=== PATIENT | female | born 1950 | race Caucasian/White ===

== ENCOUNTER 2023-06-09 13:28 | Emergency (ER) | payer MEDICARE, BC, SELFPAY ==
[2023-06-09 13:54] VITALS: BP 128/87; PULSE 73; RESP 16; TEMP 36.2; O2SAT 98; BMI 31.1
--- NOTE | 2023-06-09 14:00 | ED_ITS ---
HPI - Extremity Injury (Lower) General Time Seen by Provider: 14:00 Date Seen: 06/09/23 Chief Complaint: Extremity Pain/Injury, Lower Stated Complaint: R ankle injury-fell down steps Time Seen by Provider: 06/09/23 13:59 Source: patient and RN notes reviewed Mode of arrival: ambulatory Limitations: no limitations History of Present Illness HPI Narrative: This 73-year-old female was going down steps when she tripped and lost her balance. She rolled her right ankle, has pain and swelling on the outside of her right ankle. She states she has been told to not take NSAIDs. Nursing staff provided ice on arrival, denies injuring anything else, did not hit her head, no loss of consciousness. She did not have anything like chest pain dizziness or anything precipitating the fall, simply just tripped and lost balance, went down about 3 or 4 steps. Her ankle is the only thing that hurts, no numbness or tingling. Related Data Home Medications Medication Instructions Recorded Confirmed atorvastatin 20 mg tablet 20 mg PO DAILY 06/09/23 06/09/23 fluticasone propionate 50 spray intranasal 06/09/23 mcg/actuation nasal spray,suspension hydrochlorothiazide 25 mg tablet 25 mg PO DAILY 06/09/23 06/09/23 lisinopril 30 mg tablet 30 mg PO DAILY 06/09/23 06/09/23 metoprolol succinate 200 mg 200 mg PO DAILY 06/09/23 06/09/23 tablet,extended release 24 hr triamcinolone acetonide 0.025 % applic topical 06/09/23 topical cream Allergies Allergy/AdvReac Type Severity Reaction Status Date / Time No Known Drug Allergies Allergy Verified 06/09/23 13:47 Review of Systems Narrative: As per HPI. Exam Const: Vital Signs, click to edit/add: Vital Signs - 24 hr 06/09/23 13:54 Temperature 97.1 F L Pulse Rate [Right Pulse Oximeter] 73 Respiratory Rate 16 Blood Pressure [Ri ght Upper Arm] 128/87 Pulse Oximetry 98 Oxygen Delivery Me thod Room Air Patient is alert, interactive, no apparent distress. She has visible swelling over her right lateral ankle over the lateral malleolus. She is tender over the distal lateral malleolus and inferiorly to it in the soft tissue. The 5th metatarsal in the midfoot is nontender. There is a little pain anterior to the lateral malleolus along the joint line mortise, no effusion of the ankle joint noted. Good peripheral pulses, toes have normal sensation, good cap refill, she wiggles her toes just fine. Range of motion about the ankle limited due to pa in. Documenting provider has reviewed patient's vital signs: yes Course Course ED Course: We will obtain x-rays of her right ankle to rule out underlying fracture. She will ice in the meantime. Reevaluation(s) Time of Reevaluation #1: 15:23 Reevaluation #1: Have shown patient a picture of her ankle fracture, reviewed my discussion with Orthopedics. Will see if she can comfortably walk in the cam walker, otherwise they do have crutches at home. Advised that crutches absolutely cannot rest in her axilla, advised that crutches be fitted. We discussed ice, elevation. Will get her the phone number to call the orthopedic office to get scheduled for follow-up next week and to assess if this may need surgery. Consultations Consultation #1: Have reviewed with Angela the PA from Orthopedics. Boot for mobilization, follow up in clinic for further evaluation to see if surgical versus nonsurgical. Time: 15:23 Vital Signs Vital signs: Initial Vital Signs Temperature 97.1 F L 06/09/23 13:54 Temperature Source Temporal Artery Scan 06/09/23 13:54 Pulse Rate 73 06/09/23 13:54 Pulse Rhythm Regular 06/09/23 13:54 Respiratory Rate 16 06/09/23 13:54 Blood Pressure 128/87 06/09/23 13:54 Blood Pressure Mean 100 06/09/23 13:54 Blood Pressure Position Sitting 06/09/23 13:54 Pulse Oximetry 98 06/09/23 13:54 Oxygen Delivery Method Room Air 06/09/23 13:54 Vital Signs Temperature 97.1 F L 06/09/23 13:54 Pulse Rate 73 06/09/23 13:54 Respiratory Rate 16 06/09/23 13:54 Blood Pressure 128/87 06/09/23 13:54 Pulse Oximetry 98 06/09/23 13:54 Oxygen Delivery Method Room Air 06/09/23 13:54 Temperature 97.1 F L 06/09/23 13:54 Pulse Rate 73 06/09/23 13:54 Respiratory Rate 16 11/17/23 13:54 Blood Pressure 128/87 06/09/23 13:54 Pulse Oximetry 98 06/09/23 13:54 Oxygen Delivery Method Room Air 06/09/23 13:54 MDM - Extremity Injury (Lower) Differential Diagnosis Differential diagnosis: Likely ankle sprain and strain and ankle fracture Imaging Data XR right ankle: Attestation: I have reviewed the pertinent imaging results. My impression: Distal fibula fracture, question if there might be some disruption of the ankle mortise. Radiologist's impression: Patient: MARQUEZ ERIC Facility:?[facility] Patient ID:?[id number] Site Patient ID:?[id number]. Site :?[id number] Study:?XRay Extremity Right ANKLE-06/09/2023 2:48:49 PM Ordering Physician:Randall Shea Final Report: Indication: Injury of right ankle. Technique: Right ankle 3 views. Comparison: None. Findings/impression: There is an obliquely oriented fracture of the right fibular diametaphysis which is minimally displaced laterally, but otherwise in near anatomic alignment. There is moderate associated soft tissue swelling about the fracture site. Prominent Achilles and plantar aspect calcaneal enthesophytes. No suspicious osseous lesions. Dictated by Eduardo Barajas MD @ 06/09/2023 2:57:02 PM (Electronic Signature) Critical Care Time Critical Care Time Critical Care Time: No Discharge Plan Discharge Clinical Impression: Ankle fracture Patient Disposition: Home, Self-Care Condition: Stable Instructions: Ankle Fracture (ED) Additional Instructions: Need to use the cam walker for immobilization. Ice, elevate as much as able to over the next few days to help decrease pain and swelling. Tylenol 1000 mg 3 times a day as needed for pain management. Call the orthopedic office [phone] this afternoon or Monday to get scheduled for a follow-up next week. They will further evaluate you, do further x-rays to see if this may need surgical intervention. If you are having significant pain with walking in the cam walker, need to use crutches and be nonweightbearing on this ankle as well as leave the cam walker on. Activity Level: Weight Bearing as Tolerated Activity Detail: with CAM walker on Prescriptions: No Action atorvastatin 20 mg tablet 20 mg PO DAILY metoprolol succinate 200 mg tablet extended release 24 hr 200 mg PO DAILY triamcinolone acetonide 0.025 % cream topical lisinopril 30 mg tablet 30 mg PO DAILY hydrochlorothiazide 25 mg tablet 25 mg PO DAILY fluticasone propionate 50 mcg/actuation spray,suspension INTRANASAL Follow Up/Referrals: Saad Noriega MD [Primary Care Provider] - Stand Alone Forms: Osurv Info Instructions
--- NOTE | 2023-06-09 14:07 | CRLHL7_ITS ---
For Patients: As a result of the Century Cures Act, medical imaging exams and procedure reports are released immediately into your electronic medical record. You may view this report before your referring provider. If you have questions, please contact your health care provider. Indication: Injury of right ankle. Technique: Right ankle 3 views. Comparison: None. Findings/impression: There is an obliquely oriented fracture of the right fibular diametaphysis which is minimally displaced laterally, but otherwise in near anatomic alignment. There is moderate associated soft tissue swelling about the fracture site. Prominent Achilles and plantar aspect calcaneal enthesophytes. No suspicious osseous lesions. Dictated by Eduardo Barajas MD @ 06/09/2023 2:57:02 PM (Electronically Signed)
== END 2023-06-09 15:40 | disposition home or self-care (01) ==
PROVIDERS: Emergency Provider Family Medicine; PCP Family Medicine
DX: S82.831A Other fracture of upper and lower end of right fibula, initial encounter for closed fracture (principal); W10.9XXA Fall (on) (from) unspecified stairs and steps, initial encounter
CPT/HCPCS: 73610; 99283

== ENCOUNTER 2023-09-18 08:15 | Outpatient (RCR) | payer MEDICARE, BC, SELFPAY ==
--- NOTE | 2023-07-31 11:08 | PT.OPEX ---
PT [place] Outpatient Eval PT [facility] Outpatient Eval Start: 07/31/23 10:29 Freq: Status: Active Protocol: Document 07/31/23 10:29 MAN (Rec: 07/31/23 11:03 MAN [id number]) E-signed By Aura Trivedi DPT Physical Therapy Outpatient Evaluation Insurance Information Recert Due Date 10/29/23 Insurance Name Medicare B Medical Diagnosis displaced fracture lateral malleolus R fibula Treating Diagnosis R ankle fx with R ankle pain, R ankle/foot swelling, impaired R ankle ROM, impaired R ankle/LE mobility/strength, currently in CAM walking boot WBAT using one crutch, limited tolerance for extended standing/walking and stairs Subjective Subjective Patient reports falling while going down the stairs at her home Jun 09. States she was able to get back up but knew she had injured her ankle so was taken to the ED. Xray showed R ankle fx. She followed up with ortho and has been in a boot since the injury. Initially she was NWB , getting around with crutches . She had a follow up with Jul 11 and was able to progress to WBAT in the boot. She reports still using one or two crutches for walking but is taking a few steps at home without the crutches. She continues to wear her boot with WB, walking activities. She is taking the boot off for some ROM exercises or at rest during the day. Now taking the boot off at night. Pain range 0-2/10. Reports some soreness in the evening and in the morning. Not needing pain meds or ice lately. Expresses some hesitation on progression of WB and being out of the boot, fearing increased pain or a set back in her healing. Date of Last Physician Visit 07/11/23 Date of Next Physician Visit 08/15/23 Current Work Status Retired Precautions Treatment Precautions/Contraindications Per MD note WBAT in CAM boot, able to transition back to shoes in 3-4 weeks as tolerated from MD visit on . Weight Bearing Status Weight Bear as Tolerated Assessment Assessment/Impression Patient is a 73 year old female s/p fall on the stairs on Jun 09 with R ankle fx, R ankle pain, R ankle/foot swelling, impaired R ankle ROM , impaired R ankle/LE mobility /strength, currently in CAM walking boot WBAT using one crutch, limited tolerance for extended standing/walking and stairs. Pain range 0-2/10. She has not been needing pain meds or ice lately. appt on Jul 11 with progression to WBAT in the boot with MD note stating patient may transition to a shoe over the next 3-4 weeks as tolerated. Patient has continued to use the boot for WB and walking. She also continues to use one or two crutches for ambulation. Reports taking a few steps at home without the crutches but not walking without the crutches yet. Gait is slow, limping with walking boot and one crutch this session. Patient is able to take steps in the room without her crutch , in R walking boot. R ankle ROM: DF 5 degrees, PF 30 degrees. Strength testing deferred at this time but patient did tolerate gentle isometrics and gentle isotonics this session without pain. Able to initiate R ankle ROM exercises, standing WB exercises in the boot using countertop support as needed, and gentle ankle WB/strength/ stability exercise with bridging this session. All tolerated well. Patient would benefit from skilled PT for pain/swelling management, improved R ankle ROM, improved R ankle/LE mobility/strength, progression of WB in walking boot, progression out of walking boot, improved gait, balance/proprioception training, and establishment of HEP. Plan of Care Rehabilitation Potential Good Physical Therapy Goals 1. Decrease/maintain R lower leg/ankle pain to less than/ equal to 3/10 with daily activities and with the progression of PT activities over the next 4-6 weeks. 2. Decrease R ankle pain/ soreness so that patient is able to sleep through the night on a regular basis within 3-4 weeks. 3. Improve R ankle ROM over the next 6-8 weeks for return to normal gait mechanics, reciprocal stair negotiation, and PLF with daily/household activities. 4. Improve R ankle/LE strength over the next 8-12 weeks for progression of WB, progression out of walking boot, return to normal gait, and return to extended standing/walking activities without flare up of pain per PLF. 5. Improve R ankle/LE balance /proprioception over the next 8-12 weeks for return to PLF with daily/household activities without limitation and for decreased risk of falls. 6. Patient will be I with HEP within 12 weeks for progression toward above goals, ongoing self management of pain/swelling, ongoing self improvements in ROM/strength/ balance/proprioception/gait, and for return to PLF with daily/household activities without limitation or flare up of pain. Coordination/Communication With Referral Source Treatment Plan/Direct Interventions Gait Training,Manual Therapy, Neuromuscular Re-ed, Therapeutic Exercises Frequency/Duration 1x/week Patient Will Be Discharged From Therapy Completion of LTG(s),Skills Plateau,Independent w/HEP, Independently Progressing Evaluation Billing Untimed Code Treatment Minutes 20 Complexity Moderate Certification Information Initial Certification Date 07/31/23 Ending Certification Date 10/29/23 Provider Signature Shows Agreement With POC & Medical Necessity Physician Signature & Date Requested Please Sign/Date Here Physician Comment/Change : Physician NPI Number #
== END 2024-01-16 23:59 | disposition home or self-care (01) ==
PROVIDERS: PCP Family Medicine; Visit Provider Orthopaedic Surgery
DX: S82.61XA Displaced fracture of lateral malleolus of right fibula, initial encounter for closed fracture (principal); M25.571 Pain in right ankle and joints of right foot; M25.471 Effusion, right ankle; R29.898 Other symptoms and signs involving the musculoskeletal system; Z74.09 Other reduced mobility; Z51.89 Encounter for other specified aftercare
CPT/HCPCS: 97110; 97162

== ENCOUNTER 2024-03-01 08:47 | Outpatient (CLI) | payer MEDICARE, BC, SELFPAY ==
--- OUTSIDE RECORDS SUMMARY | 2024-03-01 08:49 | XMS_ITS | Clinical Summary ---
Author Organization [facility] Address [place], [place] [address] Care Team Providers Care Tugger Operator Name Role Phone Saad Noriega MD Primary Care Provider + Allergies Active Allergy Reactions Criticality Noted Date Comments Ciprofloxacin Hallucinations 12/18/2018 Medications Medication Sig Dispensed Refills Start Date End Date Status fluticasone (50 mcg per actuation) nasal solution (FLONASE)Indication s:Rhinitis, unspecified type PLACE 2 SPRAYS INTO EACH NOSTRIL ONCE DAILY 48 mL 5 02/21/2022 Active multivit-min/ferrou s fumarate (MULTI VITAMIN ORAL) Take by mouth. Active antiox #8/om3/dha/epa/lut/ zeax (PRESERVISION AREDS 2, OMEGA-3, ORAL) Take by mouth. Active lisinopriL (PRINIVIL; ZESTRIL) 30 mg tabletIndications:H TN (hypertension) TAKE ONE TABLET BY MOUTH ONCE DAILY 90 Tablet 12/27/2023 Active metoprolol succinate SR (TOPROL XL) 200 mg Sustained-Release tabletIndications:H TN (hypertension) TAKE ONE TABLET BY MOUTH ONCE DAILY 90 Tablet 12/27/2023 Active hydroCHLOROthiazide 25 mg tabletIndications:H TN (hypertension) TAKE ONE TABLET BY MOUTH ONCE DAILY 90 Tablet 12/27/2023 Active atorvastatin (LIPITOR) 20 mg tabletIndications:H yperlipidemia LDL goal <130 TAKE ONE TABLET BY MOUTH EVERY DAY 90 Tablet 12/27/2023 Active polyethylene glycol-electrolyte (GOLYTELY) 236-22.74-6.74 -5.86 gram suspensionIndicatio ns:Adenomatous polyp of colon, unspecified part of colon Drink 2 liters the day before colonoscopy and 2 liters 6 hours before colonoscopy appointment 4000 mL 03/04/2024 Active Active Problems Problem Noted Date Diagnosed Date Rectocele 02/09/2023 Adenomatous colon polyp 07/05/2018 Overview: Colonoscopy 06/2018 polyp, repeat in 5 years Hyperlipidemia LDL goal <130 12/14/2017 HTN (hypertension) 09/08/2015 Encounters Date Type Department Care Team Description 02/22/2024 2:30 PM CDT Ancillary Procedure [facility] [address] [place] [address] 02/22/2024 2:00 PM CDT Ancillary Procedure [facility] [address] [place] [address] 02/22/2024 Ancillary Orders [facility] [address] [place] [address] Saad Noriega MD 02/22/2024 Travel 02/08/2024 1:20 PM CDT Ancillary Procedure [facility] [address] [place] [address] 02/08/2024 Travel 02/08/2024 Telephone [facility] [address] [place] [address] Oracio Lucero MD Pre Procedure (Colonoscopy) 12/26/2023 Refill [facility] [address] [place] [address] Saad Noriega MD Refill Request (Lisinopril, Metoprolol Succinate Sr, Hydrochlorothiazide , Atorvastatin) from Last 3 Months Immunizations Name Administration Dates Next Due Hepatitis A (Adult) 07/06/2016,03/17/2006 Hepatitis A, Unspecified 03/17/2006 Influenza RIV4 (Age 18+ Years) PRESERV FREE 09/2019,04/30/2019 Influenza Virus, Unspecified 05/01/2006 Influenza, High-dose Inactivated 05/22/2018 Influenza, High-dose Quadrivalent Inactivated ,04/15/2021 Influenza, IIV3 (Age >=3 years) 05/01/2006 Influenza, IIV4 07/06/2016 Influenza, Inactivated IIV3 (Age 65+ Years) Preserv Free 06/20/2017 Pneumococcal Poly,23-Valent (Pneumovax) 07/10/20 17 Pneumococcal conj 13-Valent (Prevnar 13) 016 Td (Age >=7 Years) 02/17/2004 Tdap 07/06/2016 Zoster (Shingrix-RZV, recombinant) 02/25/2020, Family History Medical History Relation Name Comments Diabetes Father Heart Disease Father Heart Disease Mother Stroke Mother Cancer-breast No Family History Relation Name Status Comments Father Mother Social History Tobacco Use Types Packs/Day Years Used Date Smoking Tobacco: Never Smokeless Tobacco: Never Tobacco Cessation:Counseling Given: Yes Alcohol Use Standard Drinks/Week Comments Yes 1 (1 standard drink = 0.6 oz pur e alcohol) 1 drink per week PHQ-2 Answer Date Recorded PHQ-2 TOTAL SCORE 0 02/08/2023 Social Connections Answer Date Recorded Frequency of Communication with Friends and Fami ly Not on file 01/30/2023 Financial Resource Strain Answer Date R ecorded Difficulty of Paying Living Expenses 3 01/26/2022 Difficulty of Paying Living Expenses Not on file 01/26/2022 Food Insecurity Answer Date Recorded Worried About Running Out of Food in the Last Ye ar 1 01/26/2022 Transportation Needs Answer Date Record ed Lack of Transportation (Medical) 1 01/26/2022 Housing Stability Answer Date Recorded Unable to Pay for Housing in the Last Year 1 01/26/2022 Sex and Gender Information Value Date Recorded Sex Assigned at Not on file Gender Identity Not on file Sexual Orientation Not on file Obstetrics History Last Filed Vital Signs Vital Sign Reading Time Taken Comments Blood Pressure 119/78 02/09/2023 1:11 PM CDT Pulse 69 02/09/2023 1:11 PM CDT Temperature 36.8 ??C (98.2 ??F) 02/09/2023 1:11 PM CD T Respiratory Rate - - Oxygen Saturation 97% 02/09/2023 1:11 PM CDT Inhaled Oxygen Concentration - - Weight 81.6 kg (179 lb 12.8 oz) 02/09/2023 1:11 PM CDT Height 156.8 cm (5' 1.73) 02/09/2023 1:11 PM CD T Body Mass Index 33.17 02/09/2023 1:11 PM CDT Plan of Treatment Upcoming Encounters Date Type Department Care Team (Late st Contact Info) Description 03/14/2024 11:00 AM CDT Office Visit [facility] [address] [place] [address] Oracio Lucero MD [address] [place] [address] 03/28/2024 7:30 AM CDT Office Visit [facility] [address] [place] [address] Saad Noriega MD [address] [place] [address] Health Maintenance Due Date Last Done Comments Hepatitis C screening for ag e -02/15/1968 COVID-19 vaccine series ( season) 2023 05/30/2022, 12/09/2021, 05/24/2021, Additional history exists Colonoscopy through age 75 07/04/202307/04, 07/04/2018, 07/04/2018 BMI (ht and wt on same day) for age 18+ 02/10/2024 02/09/2023, 01/27/2022, 08/25/2021, Additional history exists Depression screening for age 12+ 02/10/2024 02/09/2023, 01/27/2022, 06/15/2021, Additional history exists Medicare Wellness for age 65+ 02/10/2024, 01/27/2022, 12/14/2017 Influenza for age 65+ 03/24/2024 05/30/2022 , 04/15/2021, 04/25/2020, Additional history exists Mammogram for age 45-75 02/21/2025 02/22/20, 02/08/2024, 02/02/2023, Additional history exists Tetanus booster 07/06/2026 07/06/2016, 02/17/2004 Lipids for age 45-75 02/10/2028 02/09/2023, 01/27/2022, 06/15/2021, Additional history exists Tdap Completed 07/06/2016 Pneumococcal series for age 65+ Completed 7, 07/06/2016 DEXA/DXA scan for age 65+ Completed 02/08/2018 Zoster (shingles) series for age 50+ Completed 02/25/2020, 05/07/2019 Procedures Procedure Name Priority Date/Time Associated Diagnosis Comments US BREAST UNILATERAL RIGHT LIMITED JACOB 02/22/2024 2:31 PM CDT Abnormal mammogram XR MAMMO GISELLE UNI ADDL VIEWS RIGHT JACOB 02/22/2024 2:14 PM CDT Abnormal mammogram XR MAMMO GISELLE BILAT SCREEN Routine 02/08/2024 1:45 PM CDT Visit for screening mammogram LIPID PANEL W REFLEX MEASURED LDL Routine 02/09/2023 2:16 PM CDT Screening cholesterol level COLONOSCOPY SCREENING Routine 07/04/2018 7:31 AM [facility] Screening for colon cancer XR DXA BONE DENSITY 2 SITES AXIAL Routine 02/08/2018 11:12 AM CDT Menopause from Last 3 Months or Most Recently Relevant to Health Maintenance Results * US BREAST UNILATERAL RIGHT LIMITED (02/22/2024 2:31 PM CDT) Anatomical Region Laterality Modality BREASTS, Breast Right Right Ultrasound Narrative 02/23/2024 1:28 PM CDT For Patients: As a result of the Cures Act, medical imaging exams and procedure reports are released immediately into your electronic medical record. ??You may view this report before your referring provider. ?? If you have questions, please contact your health care provider. RIGHT BREAST LIMITED ULTRASOUND, 02/22/2024 PLEASE SEE [id number] FOR COMBINED REPORT WITH RIGHT DIGITAL MAMMOGRAM OF SAME DAY. Saad Noriega MD US * XR MAMMO GISELLE UNI ADDL VIEWS RIGHT (02/22/2024 2:14 PM CDT) Anatomical Region Laterality Modality BREASTS, Breast Right Mammograph y 02/22/2024 3:50 PM CDT Impressions 02/23/2024 1:28 PM CDT Suspicious mass at 2 o'clock 2 cm from the nipple RIGHT breast measuring 11 mm. Probable artifact in RIGHT breast at 3 o'clock 4 cm from the nipple. RECOMMENDATIONS: Ultrasound-guided core needle biopsy of the suspicious mass at 2 o'clock 2 cm from the nipple. Second-look ultrasound at the time of biopsy at 3 o'clock 4 cm from the nipple. Results and recommendations discussed with the patient. BI-RADS Category 4: Suspicious ?? Dictated by: Bruno Schafer MD @02/22/2024 3:50:43 PM CRL:rcd PATIENTS: You will also receive a letter with your examination results in an easy to read format. ??If you have questions about your results, please contact your referring provider. Narrative 02/23/2024 1:28 PM CDT For Patients: As a result of the Cures Act, medical imaging exams and procedure reports are released immediately into your electronic medical record. ??You may view this report before your referring provider. ?? If you have questions, please contact your health care provider. RIGHT DIGITAL DIAGNOSTIC MAMMOGRAM ADDITIONAL VIEWS WITH TOMOSYNTHESIS, 02/22/2024 RIGHT BREAST LIMITED ULTRASOUND, 02/22/2024 CLINICAL HISTORY: RIGHT breast mass/asymmetry. COMPARISON: 02/08/2024. TECHNIQUE: Digital RIGHT mammogram in two projections with tomosynthesis. Real-time ultrasound imaging of RIGHT breast with imaging documentation. BREAST COMPOSITION: There are scattered areas of fibroglandular density. FINDINGS: 3D spot compression CC/MLO RIGHT breast mammogram images submitted. Persistent spiculated density is present within the medial RIGHT breast. No suspicious calcifications. Targeted RIGHT breast ultrasound performed. At 2 o'clock 2 cm from the nipple, there is a heterogeneous solid mass with lobular contour measuring 11 x 7 x 11 mm at mid depth. Additional shadowing focus is present at 3 o'clock 4 cm from the nipple which is likely artifactual measuring 7 x 5 x 4 mm. Saad Noriega MD MAMMO * XR MAMMO GISELLE BILAT SCREEN (02/08/2024 1:45 PM CDT) Anatomical Region Laterality Modality BREASTS, Breast Left, Breast Right Bilateral Mammography 02/08/2024 3:58 PM CDT Impressions 02/08/2024 4:14 PM CDT RIGHT breast asymmetry/mass. RECOMMENDATIONS: Additional mammographic views of the RIGHT breast including 3D spot-compression CC/MLO. RIGHT breast ultrasound may also be required. A member of the breast health care team will contact the patient to schedule the required additional imaging appointment(s). BI-RADS Category 0: Incomplete: Need Additional Imaging Evaluation and/or Prior Mammograms for Comparison Dictated by: Bruno Schafer MD @02/08/2024 3:58:22 PM/randal PATIENTS: You will also receive a letter with your examination results in an easy to read format. ??If you have questions about your results, please contact your referring provider. Narrative 02/08/2024 4:14 PM CDT For Patients: As a result of the Cures Act, medical imaging exams and procedure reports are released immediately into your electronic medical record. ??You may view this report before your referring provider. ?? If you have questions, please contact your health care provider. BILATERAL DIGITAL SCREENING MAMMOGRAM WITH COMPUTER-AIDED DETECTION AND TOMOSYNTHESIS 02/08/2024 CLINICAL HISTORY: Routine screening exam. COMPARISON: 02/02/2023, 09/24/2021, 02/08/2018. TECHNIQUE: Digital mammogram in CC and MLO projections including computer-aided detection (CAD). Tomosynthesis was used in this interpretation. BREAST COMPOSITION: There are scattered areas of fibroglandular density. FINDINGS: RIGHT Breast: Focal asymmetric density in the lower inner quadrant 4 cm from the nipple. LEFT Breast: No suspicious findings. Saad Noriega MD MAMMO * LIPID PANEL W REFLEX MEASURED LDL (02/09/2023 2:16 PM CDT) CHOLESTEROL,TOTAL 188 100 - 199 mg/dL 02/10/2023 2:04 AM CDT [facility] Comment: Cholesterol, Total Reference Ranges Desirable <200 mg/dL Borderline 200-239 mg/dL High >=240 mg/dL TRIGLYCERIDES 102 <150 mg/dL 02/10/2023 2:04 AM CDT [facility] HDL CHOLESTEROL 74 >40 mg/dL 2:04 AM CDT [facility] NON-HDL CHOLESTEROL 114 <145 mg/dl 02/10/2023 2:04 AM CDT [facility] CHOL/HDL RATIO 2.54 <4.50 02/10/2023 2:04 AM CDT [facility] LDL CHOLESTEROL 94 <=130 mg/dL 02/10/2023 2:04 AM CDT [facility] VLDL CHOLESTEROL 20 <=30 mg/dL 02/10/2023 2:04 AM CDT [facility] PROVIDER ORDERED STATUS RANDOM 02/10/2023 2:04 AM CDT [facility] Blood BLOOD SPECIMEN / Unknown Venipuncture / Unknown 02/09/2023 2:16 PM CDT 02/09/2023 2:17 PM CDT Saad Noriega MD [facility]STR[facility] [address] [place] [address], * COLONOSCOPY SCREENING [[id number]] (07/04/2018 7:31 AM [facility]) Saad Noriega MD GI PROCEDURE ORD * XR DXA BONE DENSITY 2 SITES AXIAL [57338.1] (02/08/2018 11:12 AM CDT) Anatomical Region Laterality Modality Spine, HIPS, HIPL, HIPR Other Narrative 02/13/2018 8:01 AM CDT Please see scanned document for results of this study. Saad Noriega MD DEXA from Last 3 Months or Most Recently Relevant to Health Maintenance Care Teams Tugger Operator Relationship Specialty Start Date End Date Votel, Saad Jaramillo MD [address] [place] [address] PCP - General Family Practice 01/13/16
--- NOTE | 2024-03-01 09:15 | CRLHL7_ITS ---
For Patients: As a result of the Century Cures Act, medical imaging exams and procedure reports are released immediately into your electronic medical record. You may view this report before your referring provider. If you have questions, please contact your health care provider. ULTRASOUND-GUIDED BREAST BIOPSY AND POST-BIOPSY DIGITAL MAMMOGRAM FOR BIOPSY MARKER PLACEMENT CLINICAL HISTORY: Indeterminate mass. COMPARISON STUDIES: 02/22/2024. TECHNIQUE: Real-time ultrasound with image documentation was used for targeting the breast lesion. Core biopsy specimens were obtained using an automated gun with an 18-gauge biopsy needle. Post-biopsy CC and ML digital mammograms were obtained to document position of the biopsy marker. CONSENT and TIME OUT: The procedure, risks, and alternatives were explained to the patient and a consent was signed. [place] Protocol was followed including pre-procedure verification that relevant information/documentation was available, reviewed and properly matched to the patient; consent accurate and complete; and equipment and supplies available. Time Out was conducted just prior to starting procedure to verify the four required elements: patient identity, correct side/site marked (if applicable), procedure, relevant images/results properly labeled and displayed (if applicable). PROCEDURE: The patient was positioned supine on the ultrasound table. The breast was prepped with ChloraPrep. 8 cc of 1 percent lidocaine was used for local anesthesia. Core samples were obtained. A sterile metal biopsy clip was placed percutaneously to michel the lesion position within the breast. The specimens were placed in 10% formalin and sent to the pathology department. Pressure was held on the biopsy site until all bleeding subsided. The skin incision was closed with Steri-Strips. An ice pack was positioned over the biopsy site. Post-biopsy instructions were reviewed with the patient, and a written copy was given to her. LATERALITY: RIGHT breast. LESION: Solid heterogeneous nodule 2 o`clock 2 cm from the nipple measuring 11 x 7 x 11 millimeters. SUSPICION FOR MALIGNANCY: High. NUMBER OF SAMPLES: 6. BIOPSY CLIP SHAPE: Oval. PROXIMITY OF CLIP TO TARGET: Immediately adjacent to the lesion. IMPRESSION: Ultrasound-guided breast biopsy. When the pathology report is available, an addendum to this report will be made. ACR not applicable Note that there is an area of artifactual shadowing at 3 o`clock 4 cm which was not biopsied as a discernible underlying mass is not convincing. Dictated by Bruno Schafer MD @ 03/01/2024 10:40:37 AM jj/Dictated by: Bruno Schafer MD @ 03/01/2024 10:53:00 AM (Electronically Signed)
--- NOTE | 2024-03-01 10:00 | CRLHL7_ITS ---
For Patients: As a result of the Century Cures Act, medical imaging exams and procedure reports are released immediately into your electronic medical record. You may view this report before your referring provider. If you have questions, please contact your health care provider. PLEASE SEE ULTRASOUND-GUIDED RIGHT BREAST BIOPSY PERFORMED SAME DAY CRL:lore torrez/Dictated by: Bruno Schafer MD @ 03/01/2024 10:40:00 AM (Electronically Signed)
== END 2024-03-01 08:48 | disposition home or self-care (01) ==
LOC: US 08:48
PROVIDERS: PCP Family Medicine; Visit Provider Family Medicine
DX: N63.10 Unspecified lump in the right breast, unspecified quadrant (principal); C50.911 Malignant neoplasm of unspecified site of right female breast; R92.8 Other abnormal and inconclusive findings on diagnostic imaging of breast
CPT/HCPCS: 19083; 77065; 88305; 88341; 88342; 88360; 88361; A4648; A4649

== ENCOUNTER 2024-03-21 13:57 | Outpatient (CLI) | payer MEDICARE, BC, SELFPAY ==
--- OUTSIDE RECORDS SUMMARY | 2024-03-21 14:02 | XMS_ITS | Clinical Summary ---
Author Organization [facility] Address [place], [place] [address] Care Team Providers Care Coremaker Floor Name Role Phone Saad Noriega MD Primary Care Provider + Allergies Active Allergy Reactions Criticality Noted Date Comments Ciprofloxacin Hallucinations 12/18/2018 Medications Medication Sig Dispensed Refills Start Date End Date Status fluticasone (50 mcg per actuation) nasal solution (FLONASE)Indicati ons:Rhinitis, unspecified type PLACE 2 SPRAYS INTO EACH NOSTRIL ONCE DAILY 48 mL 5 02/21/2022 Active multivit-min/ferr ous fumarate (MULTI VITAMIN ORAL) Take by mouth. Active antiox #8/om3/dha/epa/bruce t/zeax (PRESERVISION AREDS 2, OMEGA-3, ORAL) Take by mouth. Active lisinopriL (PRINIVIL; ZESTRIL) 30 mg tabletIndications :HTN (hypertension) TAKE ONE TABLET BY MOUTH ONCE DAILY 90 Tablet 12/27/2023 Active metoprolol succinate SR (TOPROL XL) 200 mg Sustained-Release tabletIndications :HTN (hypertension) TAKE ONE TABLET BY MOUTH ONCE DAILY 90 Tablet 12/27/2023 Active hydroCHLOROthiazi de 25 mg tabletIndications :HTN (hypertension) TAKE ONE TABLET BY MOUTH ONCE DAILY 90 Tablet 12/27/2023 Active atorvastatin (LIPITOR) 20 mg tabletIndications :Hyperlipidemia LDL goal <130 TAKE ONE TABLET BY MOUTH EVERY DAY 90 Tablet 12/27/2023 Active amoxicillin 875 mg tabletIndications :Acute maxillary sinusitis, recurrence not specified Take 1 Tablet (875 mg) by mouth two times daily for 10 days. 20 Tablet 03/19/2024 09/06/202 4 Active polyethylene glycol-electrolyt e (GOLYTELY) 236-22.74-6.74 -5.86 gram suspensionIndicat ions:Adenomatous polyp of colon, unspecified part of colon Drink 2 liters the day before colonoscopy and 2 liters 6 hours before colonoscopy appointment 4000 mL 03/04/2024 4 Discontinue d(*Med complete/Re gimen complete/Le estefany of care change) Hospital, Clinic, or Other Facility Administered Medication Ordered Dose Route Frequency Start Date End Date Status fentaNYL (PF) (SUBLIMAZE) 50 mcg/mL injection 100 mcgIndications:History of colon polyps 100 mcg IV ONE TIME 03/14/2024 03/14/2024 Ended midazolam (VERSED) injection 2 mgIndications:History of colon polyps 2 mg IV ONE TIME 03/14/2024 03/14/2024 Ended Active Problems Problem Noted Date Diagnosed Date Rectocele 02/09/2023 Adenomatous colon polyp 07/05/2018 Overview: Colonoscopy 06/2018 polyp, repeat in 5 years Colonoscopy 02/2024 normal, repeat in 7-10 years Hyperlipidemia LDL goal <130 12/14/2017 HTN (hypertension) 09/08/2015 Encounters Date Type Department Care Team Description 03/20/2024 Refill [facility] [address] [place] [address] Saad Noriega MD Refill Request (Lisinopril, Hydrochlorothiazide , Atorvastatin, Metoprolol Succinate Sr) 03/19/2024 9:10 AM CDT Office Visit [facility] [address] [place] [address] Saad Noriega MD Follow Up (Colonoscopy) 03/18/2024 Travel 03/14/2024 11:00 AM CDT Office Visit [facility] [address] [place] [address] Oracio Lucero MD Procedure (Colonoscopy) 03/14/2024 Travel 03/12/2024 2:00 PM CDT Office Visit [facility] [address] [place] [address] Deidre Moore MD Consult (Breast cancer) 03/11/2024 Travel 03/08/2024 Telephone [facility] [address] [place] [address] Oracio Lucero MD Appointment Reminder (Colonoscopy on 03/14/2024 arriving at 1100) 03/01/2024 Orders Only [facility] Scanner 1 scan: (1-Ord) SARA US GUIDED BREAST BIOPSY RT, 03/01/2024 03/01/2024 Lab Requisition [facility] [phone] Unknown, Doctor 03/01/2024 Orders Only [facility] [address] [place] [address] Saad Noriega MD 2 scans: (2-Ord) SARA, MM CLIP PLACEMENT RIGHT, 03/01/2024 02/22/2024 2:30 PM CDT Ancillary Procedure [facility] [address] [facility] [place] [address] 02/22/2024 2:00 PM CDT Ancillary Procedure [facility] [address] [place] [address] 02/22/2024 Ancillary Orders [facility] [address] [facility] [place] [address] Saad Noriega MD 02/22/2024 Travel 02/08/2024 1:20 PM CDT Ancillary Procedure [facility] [address] [facility] [place] [address] 02/08/2024 Travel 02/08/2024 Telephone [facility] [address] [place] [address] Oracio Lucero MD Pre Procedure (Colonoscopy) 12/26/2023 Refill [facility] [place] [facility] [place] [address] Saad Noriega MD Refill Request (Lisinopril, Metoprolol [...] Never Smokeless Tobacco: Never Tobacco Cessation:Counseling Given: No Alcohol Use Standard Drinks/Week Comments Yes 1 (1 standard drink = 0.6 oz pur e alcohol) 1 drink per week PHQ-2 Answer Date Recorded PHQ-2 TOTAL SCORE 1 03/19/2024 Social Connections Answer Date Recorded Frequency of Communication with Friends and Fami ly 0 03/19/2024 Financial Resource Strain Answer Date R ecorded Difficulty of Paying Living Expenses 3 03/19/2024 Difficulty of Paying Living Expenses Not on file 03/19/2024 Food Insecurity Answer Date Recorded Worried About Running Out of Food in the Last Ye ar 1 03/19/2024 Transportation Needs Answer Date Record ed Lack of Transportation (Medical) 1 03/19/2024 Housing Stability Answer Date Recorded Unable to Pay for Housing in the Last Year 1 03/19/2024 Sex and Gender Information Value Date Recorded Sex Assigned at Not on file Gender Identity Not on file Sexual Orientation Not on file Obstetrics History Last Filed Vital Signs Vital Sign Reading Time Taken Comments Blood Pressure 118/80 03/19/2024 8:57 AM CDT Pulse 81 03/19/2024 8:57 AM CDT Temperature 36.9 ??C (98.4 ??F) 03/14/2024 11:01 AM C DT Respiratory Rate 12 03/14/2024 12:35 PM CDT Oxygen Saturation 98% 03/19/2024 8:57 AM CDT Inhaled Oxygen Concentration - - Weight 83.1 kg (183 lb 1.6 oz) 03/19/2024 8:57 A M CDT Height 157 cm (5' 1.81) 03/19/2024 8:57 AM CDT Body Mass Index 33.69 03/19/2024 8:57 AM CDT Plan of Treatment Upcoming Encounters Date Type Department Care Team (Late st Contact Info) Description 03/28/2024 7:30 AM CDT Office Visit [facility] [address] [place] [address] Votel, Saad Jaramillo MD [address] [place] [address] Health Maintenance Due Date Last Done Comments Hepatitis C screening for ag e 18-02/15/1968 COVID-19 vaccine series ( season) 2023 05/22/2023, 05/30/2022, 12/09/2021, Additional history exists Medicare Wellness for age 65+ 02/10/2024, 01/27/2022, 12/14/2017 Influenza for age 65+ 03/24/2024 05/30/2022 , 04/15/2021, 04/25/2020, Additional history exists Mammogram for age 45-75 02/21/2025 02/22/20, 02/08/2024, 02/02/2023, Additional history exists BMI (ht and wt on same day) for age 18+ 03/19/2025 03/19/2024, 02/09/2023, 01/27/2022, Additional history exists Depression screening for age 12+ 03/19/2025 03/19/2024, 02/09/2023, 01/27/2022, Additional history exists Tetanus booster 07/06/2026 07/06/2016, 02/17/2004 Lipids for age 45-75 02/10/2028 02/09/2023, 01/27/2022, 06/15/2021, Additional history exists Colonoscopy through age 75 03/15/203103/15, 03/14/2024, 07/04/2018, Additional history exists Tdap Completed 07/06/2016 Pneumococcal series for age 65+ Completed 7, 07/06/2016 DEXA/DXA scan for age 65+ Completed 02/08/2018 Zoster (shingles) series for age 50+ Completed 02/25/2020, 05/07/2019 Procedures Procedure Name Priority Date/Time Associated Diagnosis Comments COLONOSCOPY 03/14/2024 11:07 AM CDT LAB TRACKING EVENT Routine 03/01/2024 9: 47 AM CDT PATH BREAST CORE BIOPSY Routine 03/01/2024 9:47 AM CDT SCAN-ULTRASOUND REPORT 03/01/2024 12:00 AM CDT XR MAMMO POST CLIP PLCMT RT Routine 03/01/2024 12:00 AM CDT Abnormal mammogram US BIOPSY BREAST NEEDLE W RENATE W GUIDE RIGHT JACOB 03/01/2024 12:00 AM CDT Abnormal mammogram US BREAST UNILATERAL RIGHT LIMITED JACOB 02/22/2024 2:31 PM CDT Abnormal mammogram XR MAMMO GISELLE UNI ADDL VIEWS RIGHT JACOB 02/22/2024 2:14 PM CDT Abnormal mammogram XR MAMMO GISELLE BILAT SCREEN Routine 02/08/2024 1:45 PM CDT Visit for screening mammogram LIPID PANEL W REFLEX MEASURED LDL Routine 02/09/2023 2:16 PM CDT Screening cholesterol level XR DXA BONE DENSITY 2 SITES AXIAL Routine 02/08/2018 11:12 AM CDT Menopause from Last 3 Months or Most Recently Relevant to Health Maintenance Results * COLONOSCOPY (03/14/2024 11:07 AM CDT) 03/14/2024 11:0 7 AM CDT Narrative Transcriptions Oracio Lucero MD - 03/14/2024 12:22 PM CDT Patient Name: Claudia Currie Procedure Date: 03/14/2024 Gender: Female Date of : 1950 Admit Type: Outpatient Procedure: Colonoscopy Proceduralist: Oracio Lucero MD , Tika Nails RN (Nurse), Lor Craig (Nurse) Indications/Pre-Op Diagnosis: High risk colon cancer surveillance:Personal history of adenoma less than 10 mm in size, Last colonoscopy: June 2018 Medications: Fentanyl 100 micrograms IV, Midazolam 2 mgIV, The level of sedation administered wasmoderate Procedure Description: The patient had risks, benefits and alternatives explained to andgave informed consent. The patient had a stable cardiopulmonary status and judged an adequate candidate for conscious sedation. The endoscope PCF-H190L [id number] was passed through the anus andadvanced to the cecum, identified by appendiceal orifice and ileocecal valve.The colonoscopy was performed without difficulty. The patient toleratedthe procedure well. The quality of the bowel preparation was good. The ileocecal valve, appendiceal orifice, and rectum were photographed. Complications: No immediate complications. Estimated Blood Loss & Specimen: Estimated blood loss: none. Specimen collected - None Findings: The perianal and digital rectal examinations were normal. The entire examined colon appeared normal. Impressions/Post-Op Diagnosis: - The entire examined colon is normal. - No specimens collected. Recommendation: - Patient has a contact number available for emergencies. The signsand symptoms of potential delayed complications were discussed with the patient. Return to normal activities tomorrow. Written discharge instructions were provided to the patient. - Resume previous diet. - Continue present medications. - Repeat colonoscopy in 7-10 years. Moderate Sedation: A time out was performed before the procedure. Moderate (conscious) sedation was administered by the endoscopy nurse and supervised bythe endoscopist. The following parameters were monitored: oxygensaturation, heart rate, blood pressure, EKG, CO2, respiratory rate, adequacy of pulmonary ventilation and reponse to care. Please refer to the patient's medical record flowsheets and nursing notes for moderate sedation details. Total physician intraservice time was 18 minutes. Oracio Lucero MD 03/14/2024 12:22:22 PM This report has been signed electronically. Note Initiated On: 03/14/2024 11:07 AM Procedure Code(s): --- Professional --- 57417, Colonoscopy, flexible; diagnostic, including collection of specimen(s) bybrushing or washing, when performed (separateprocedure) Diagnosis Code(s): --- Professional --- Z86.010, Personal history of colonicpolyps CPT copyright 2022 [employer]. All rights reserved. The codes documented in this report are preliminary and upon um nurse reviewmay be revised to meet current compliance requirements. Scope In: 11:56:39 AM Scope Withdrawal Time 0 hours 6 minutes 46 seconds Scope Out: 12:12:29 PM Oracio Lucero MD PROCEDURE ORD * LAB TRACKING EVENT (03/01/2024 9:47 AM CDT) Other (Other) Client Collect / Unknown 03/01/2024 9:47 AM CDT 03/01/2024 10:20 PM CDT Doctor Unknown LAB BILL ONLY [facility] [address] [place] [address], * PATH BREAST CORE BIOPSY (03/01/2024 9:47 AM CDT) Case Report Pathology Report ?Case: [id number] ? Authorizing Provider: ??Unknown, Doctor ?Collected: ? 03/01/2024 0947 ? Ordering Location: ? [facility] ?Received: ?03/02/2024 0546 ? Pathologist: ? Tello Rodriguez MD ? Specimen: ?Right Breast Core Ultrasound Biopsy ? 03/06/2024 11:20 AM CDT [facility] Amendment 03/06/2024 - Amendment issued to incorporate ancillary studies. 03/06/2024 11:20 AM CDT [facility] Final Diagnosis A) RIGHT BREAST, 2:00, 2 CM FROM NIPPLE, ULTRASOUND-GUIDE D CORE BIOPSY: 1. Invasive ductal carcinoma ?? a. [place] grade: II of III; Nely score: 6 of 9 ?? b. Angio-lymphatic invasion: Absent ?? c. Associated DCIS: Absent 2. Breast Ancillary Testing: ?a. Hormone Receptors: ?Estrogen receptor: Positive (99%, strong staining) ?Progesterone receptor: Positive (93%, strong staining) ?b. HER2 by IHC: Negative (0 by manual morphometry) ?c. Ki-67: 14% by image analysis 03/06/2024 11:20 AM [facility] Amendment electronically signed by Emma Almanzar MD on 03/06/2024 at 11:20 AM Comment A) This is an image-guided breast biopsy. The pathologic findings should be correlated with radiologic and clinical findings prior to treatment decisions. Case seen in consultation with Dr. Louie. 03/06/2024 11:20 AM [facility] Clinical Information 1.1 x 1.1 x 0.7 cm, solid, lobulated, circumscribed, hypo- and hyperechoic right breast mass at 2:00, 2 cm from the nipple. Clip shape: Oval (immediately adjacent to lesion). 03/06/2024 11:20 AM [facility] Gross Description A) Label: Patient's name and right breast 2:00 2 CMFN Description: 5 Fibrofatty core biopsies Size: 0.7-1.0 cm in length by 0.2 cm in diameter Ink color: Black The specimen is submitted in toto in one cassette. Cold ischemic time: Less than 60 minutes, meets current ASCO/CAP guidelines. ?? The specimen was fixed in formalin for a minimum of 6 hours and not longer than 72 hours. [place] 03/02/2024 03/06/2024 11:20 AM [facility] Microscopic Description The final diagnosis is based on microscopic examination of appropriate sections of all specimens. A) The presence of black ink is confirmed on tissue sections. IHC studies (block A1) are interpreted as follow: SMMS... ?Negative for investing myoepithelial cells p63... ? Negative for investing myoepithelial cells 03/06/2024 11:20 AM [facility] SYNOPTIC REPORTING Breast Biomarker Reporting Template BREAST BIOMARKER REPORTING TEMPLATE - A Protocol posted: 07/05/2023 ?? Test(s) Performed: ? Estrogen Receptor (ER) Status: ?Positive (greater than 10% of cells demonstrate nuclear positivity) ? Percentage of Cells with Nuclear Positivity: ?99 % ? Average Intensity of Staining: ?Strong ? Test Type: ?Laboratory-dev eloped test ? Primary Antibody: ?SP1 ?? Test(s) Performed: ? Progesterone Receptor (PgR) Status: ?Positive ? Percentage of Cells with Nuclear Positivity: ?93 % ? Average Intensity of Staining: ?Strong ? Test Type: ?Laboratory-dev eloped test ? Primary Antibody: ?16 ?? Test(s) Performed: ? HER2 by Immunohistochemi stry: ?Negative (Score 0) ? Test Type: ?Laboratory-dev eloped test ? Primary Antibody: ?4B5 ?? Test(s) Performed: ?Ki-67 ? Ki-67 Percentage of Positive Nuclei: ?14 % ? Primary Antibody: ?MIB1 ?? Cold Ischemia and Fixation Times: ?Meet requirements specified in latest version of the ASCO / CAP Guidelines ?? Testing Performed on Block Number(s): ?A1 METHODS ?? Fixative: ?Formalin ?? Image Analysis: ?Performed ? Method: ?Aperio morphometric analysis ? Biomarkers Scored by Image Analysis: ?ER ? Biomarkers Scored by Image Analysis: ?PgR ? Biomarkers Scored by Image Analysis: ?Ki-67 ?? Comment(s): ?2,540 nuclei were analyzed for Ki-67. 03/06/2024 11:20 AM CDT [facility] Additional Information Patients with breast cancers that are HER2 IHC 3+ or IHC 2+/AILEEN amplified may be eligible for several therapies that disrupt HER2 signaling pathways. Invasive breast cancers that test 'HER2-negative' (IHC 0, 1+ or 2+/AILEEN not-amplified) are more specifically considered 'HER2-negative for protein overexpression/g ángel amplification' since non-overexpresse d levels of the HER2 protein may be present in these cases. Patients with breast cancers that are HER2 IHC 1+ or IHC 2+/AILEEN not amplified may be eligible for a treatment that targets non-amplified/no n-overexpressed levels of HER2 expression for cytotoxic drug delivery (IHC 0 results do not result in eligibility currently). [facility] - [address] [place] [address] [address], [place] [address] Immunohistochemi stry controls were reviewed and approved by the pathologist during this examination. 03/06/2024 11:20 AM CDT [facility] Other (Right Breast Core Ultrasound Biopsy) 03/01/2024 9:47 AM CDT 03/02/2024 5:46 AM CDT Doctor Unknown PATHOLOGY/CYTOLOGY [facility] [address] [place] [address], [place] * US BIOPSY BREAST NEEDLE W RENATE W GUIDE RIGHT (03/01/2024 12:00 AM CDT) Anatomical Region Laterality Modality Breast Right Right Ultrasound Saad Noriega MD US * XR MAMMO POST CLIP PLCMT RT (03/01/2024 12:00 AM CDT) Anatomical Region Laterality Modality BREASTS N/A Mammography Saad Noriega MD MAMMO * SCAN-ULTRASOUND REPORT (03/01/2024 12:00 AM CDT) Anatomical Region Laterality Modality Other Scanner OTHER * US BREAST UNILATERAL RIGHT LIMITED (02/22/2024 [...] RIGHT BREAST LIMITED ULTRASOUND, 02/22/2024 PLEASE SEE [id number] FOR COMBINED REPORT WITH RIGHT DIGITAL MAMMOGRAM [...] For Patients: As a result of the 21st Century Cures Act, medical imaging exams and procedure [...] - 199 mg/dL 02/10/2023 2:04 AM CDT [facility] Comment: Cholesterol, Total Reference Ranges Desirable <200 mg/dL Borderline 200-239 mg/dL High >=240 mg/dL TRIGLYCERIDES 102 <150 mg/dL 02/10/2023 2:04 AM CDT [facility] HDL CHOLESTEROL 74 >40 mg/dL 2:04 AM CDT [facility] NON-HDL CHOLESTEROL 114 <145 mg/dl 02/10/2023 2:04 AM CDT [facility] CHOL/HDL RATIO 2.54 <4.50 02/10/2023 2:04 AM CDT [facility] LDL CHOLESTEROL 94 <=130 mg/dL 02/10/2023 2:04 AM CDT [facility] VLDL CHOLESTEROL 20 <=30 mg/dL 02/10/2023 2:04 AM CDT [facility] PROVIDER ORDERED STATUS RANDOM 02/10/2023 2:04 AM CDT [facility] Blood BLOOD SPECIMEN / Unknown Venipuncture / Unknown 02/09/2023 2:16 PM CDT 02/09/2023 2:17 PM CDT aSad Noriega MD [facility] [address] [place] [address], * XR DXA BONE DENSITY 2 SITES AXIAL [93228.1] (02/08/2018 11:12 AM CDT) Anatomical Region Laterality Modality Spine, HIPS, HIPL, HIPR Other Narrative 02/13/2018 8:01 AM CDT Please see scanned document for results of this study. Saad Noriega MD DEXA from Last 3 Months or Most Recently Relevant to Health Maintenance Care Teams Coremaker Floor Relationship Specialty Start Date End Date Saad Noriega MD [address] [place] [address] PCP - General Family Practice 01/13/16
--- NOTE | 2024-03-21 14:30 | CRLHL7_ITS ---
For Patients: As a result of the 21st Century Cures Act, medical imaging exams and procedure reports are released immediately into your electronic medical record. You may view this report before your referring provider. If you have questions, please contact your health care provider. BILATERAL BREAST MRI WITHOUT AND WITH GADOLINIUM CLINICAL HISTORY: 73-year-old female with recently diagnosed RIGHT breast cancer. INDICATION FOR BREAST MRI: Staging of newly diagnosed breast cancer and screening of contralateral breast. Regional lymph nodes will also be assessed. COMPARISON STUDIES: Screening mammogram , 02/02/2023, additional mammographic views of the RIGHT breast and RIGHT breast ultrasound 02/22/2024. Post procedure mammogram 03/01/2024. CONTRAST: 20 cc of Dotarem. TECHNIQUE: The patient was positioned prone using a breast coil. Multiple imaging sequences were obtained using 1-1.5 mm thick slices with no gap. The image sequences include T2-weighted STIR in the axial plane, T1-weighted nonfat-saturated gradient echo in the axial plane, pre- and post-contrast T1-weighted FLASH 3D with fat suppression in the axial plane, and T1-weighted FLASH high resolution 3D with fat suppression in the sagittal plane. Image post-processing was performed on a [employer] workstation. Complex 3D rendering including maximum intensity projections (MIPS) and volumetric renderings were obtained to optimize visualization of the extent of pathology and relationship to the nipple, skin, and chest wall. This aids in determining feasibility of breast conservation surgery. Subtraction, multiplanar reconstruction, mean curve determination, and angiogenesis mapping were also performed. The study was technically adequate. FINDINGS: Amount of Fibroglandular Tissue: Scattered fibroglandular tissue. Breast Background Enhancement: Minimal. RIGHT Breast: At 2 o`clock, middle depth, approximately 4 cm from the nipple there is an irregular mass with irregular margins and heterogeneous internal enhancement measuring 1.1 x 0.9 x 1.0 cm. This demonstrates fast initial enhancement with washout. Artifact from a biopsy marker clip is present within the mass. This is consistent with the site of biopsy-proven malignancy. There are no additional suspicious areas of enhancement. LEFT Breast: No suspicious areas of enhancement. Lymph Nodes: No adenopathy. IMPRESSIONS AND RECOMMENDATIONS: RIGHT Breast: 1. Mass at 2 o`clock, middle depth measuring up to 1.1 cm on MRI is consistent with the biopsy-proven malignancy. No additional suspicious areas of enhancement. Surgical/oncologic follow-up for continued management. 2. No adenopathy. LEFT Breast: Negative, there is no MRI evidence of contralateral malignancy. BI-RADS Category 6: Known biopsy-proven malignancy Dictated by Daphnie Michel MD @ 03/26/2024 12:10:38 PM shereen/Dictated by: Daphnie Michel MD @ 03/26/2024 12:11:00 PM (Electronically Signed)
== END 2024-03-21 13:58 | disposition home or self-care (01) ==
LOC: MRI 13:57
PROVIDERS: PCP Family Medicine; Visit Provider Surgery
DX: C50.211 Malignant neoplasm of upper-inner quadrant of right female breast (principal); Z17.0 Estrogen receptor positive status [ER+]
CPT/HCPCS: 77049; C8908; C8937; A9575

== ENCOUNTER 2024-04-11 06:37 | Day surgery (SDC) | payer MEDICARE, BC, SELFPAY ==
--- OUTSIDE RECORDS SUMMARY | 2024-04-11 06:40 | XMS_ITS | Clinical Summary ---
Author Organization [employer] Address [place], [place] [address] Care Team Providers Care Rn Imcu Name Role Phone Saad Noriega MD Primary Care Provider + Allergies Active Allergy Reactions Criticality Noted Date Comments Ciprofloxacin Hallucinations 12/18/2018 Medications Medication Sig Dispensed Refills Start Date End Date Status fluticasone (50 mcg per actuation) nasal solution (FLONASE)Indicat ions:Rhinitis, unspecified type PLACE 2 SPRAYS INTO EACH NOSTRIL ONCE DAILY 48 mL 5 2 Active Additional Information Patient taking differently:Both Nostrils,Hold until asked, Reported on 03/28/2024 multivit-min/iron yumiko fumarate (MULTI VITAMIN ORAL) Take by mouth. Active antiox #8/om3/dha/epa/l ut/zeax (PRESERVISION AREDS 2, OMEGA-3, ORAL) Take by mouth. Active atorvastatin (LIPITOR) 20 mg tabletIndication s:Hyperlipidemia LDL goal <130 TAKE ONE TABLET BY MOUTH EVERY DAY 90 Tablet 3 4 Active metoprolol succinate SR (TOPROL XL) 200 mg Sustained-Releas e tabletIndication s:HTN (hypertension) TAKE ONE TABLET BY MOUTH ONCE DAILY 90 Tablet 3 4 Active hydroCHLOROthiaz clarke 25 mg tabletIndication s:HTN (hypertension) Take 1 Tablet (25 mg) by mouth once daily. 90 Tablet 3 4 Active lisinopriL (PRINIVIL; ZESTRIL) 30 mg tabletIndication s:HTN (hypertension) Take 1 Tablet (30 mg) by mouth once daily. 90 Tablet 3 4 Active lisinopriL (PRINIVIL; ZESTRIL) 30 mg tabletIndication s:HTN (hypertension) TAKE ONE TABLET BY MOUTH ONCE DAILY 90 Tablet 4 03/22/20 24 Discontinued metoprolol succinate SR (TOPROL XL) 200 mg Sustained-Releas e tabletIndication s:HTN (hypertension) TAKE ONE TABLET BY MOUTH ONCE DAILY 90 Tablet 4 03/22/20 24 Discontinued hydroCHLOROthiaz clarke 25 mg tabletIndication s:HTN (hypertension) TAKE ONE TABLET BY MOUTH ONCE DAILY 90 Tablet 4 03/22/20 24 Discontinued atorvastatin (LIPITOR) 20 mg tabletIndication s:Hyperlipidemia LDL goal <130 TAKE ONE TABLET BY MOUTH EVERY DAY 90 Tablet 4 03/22/20 24 Discontinued polyethylene glycol-electroly te (GOLYTELY) 236-22.74-6.74 -5.86 gram suspensionIndica tions:Adenomatou s polyp of colon, unspecified part of colon Drink 2 liters the day before colonoscopy and 2 liters 6 hours before colonoscopy appointment 4000 mL 4 03/19/20 24 Discontinued(*Me d complete/Regimen complete/Level of care change) amoxicillin 875 mg tabletIndication s:Acute maxillary sinusitis, recurrence not specified Take 1 Tablet (875 mg) by mouth two times daily for 10 days. 20 Tablet 4 03/29/20 24 lisinopriL (PRINIVIL; ZESTRIL) 30 mg tabletIndication s:HTN (hypertension) TAKE ONE TABLET BY MOUTH ONCE DAILY 30 Tablet 4 03/28/20 24 Discontinued(Reo rder (E-cancel not sent)) hydroCHLOROthiaz clarke 25 mg tabletIndication s:HTN (hypertension) TAKE ONE TABLET BY MOUTH ONCE DAILY 30 Tablet 4 03/28/20 24 Discontinued(Reo rder (E-cancel not sent)) Hospital, Clinic, or Other Facility Administered Medication [...] Date Rectocele 02/09/2023 Adenomatous colon polyp 07/05/2018 Overview (03/14/2024): Colonoscopy 06/2018 polyp, repeat in 5 years Colonoscopy 02/2024 normal, repeat in 7-10 years Hyperlipidemia LDL goal <130 12/14/2017 HTN (hypertension) 09/08/2015 Encounters Date Type Department Care Team Description 03/28/2024 7:30 AM CDT Office Visit [facility] [address] [place] [address] Saad Noriega MD Medicare ANNUAL (subsequent) Visit (74 year old female); Preoperative Exam (Rt breast, [place], 04/11/24, Dr. Moore) 03/28/2024 Travel 03/27/2024 Orders Only [address] [address] Deidre Moore MD 1 scan: (1-Ord) [facility], BREAST BI WITHOUT AND WITH CONTRAST, 03/21/2024 03/27/2024 Orders Only [address] [address] Deidre Moore MD <No scans attached> 03/27/2024 Orders Only [address] [address] Deidre Moore MD <No scans attached> 03/26/2024 Travel 03/20/2024 Refill [facility] [address] [place] [address] Saad Noriega MD Refill Request (Lisinopril, Hydrochlorothiazide, Atorvastatin, Metoprolol Succinate Sr) 03/19/2024 9:10 AM CDT Office Visit [address] [address] Saad Noriega MD Follow Up (Colonoscopy) 03/18/2024 Travel 03/14/2024 11:00 AM CDT Office Visit [address] [address] Oracio Lucero MD Procedure (Colonoscopy) 03/14/2024 Travel 03/12/2024 2:00 PM CDT [facility] [address] Deidre Moore MD Consult (Breast cancer) 03/11/2024 Travel 03/08/2024 Telephone [facility] [place] [address] Oracio Lucero MD Appointment Reminder (Colonoscopy on 03/14/2024 arriving at 1100) 03/01/2024 Orders Only [facility] Scanner 1 scan: (1-Ord) SARA US GUIDED BREAST BIOPSY RT, 03/01/2024 03/01/2024 Lab Requisition [facility] [phone] Unknown, Doctor 03/01/2024 Orders Only [facility] [place] [address] Saad Noriega MD 2 scans: (2-Ord) SARA, MM CLIP PLACEMENT RIGHT, 03/01/2024 02/22/2024 2:30 PM CDT Ancillary Procedure [facility] [place] [address] 02/22/2024 2:00 PM CDT Ancillary Procedure [facility] [place] [address] 02/22/2024 Ancillary Orders [address] [place] [address] Saad Noriega MD 02/22/2024 Travel 02/08/2024 1:20 PM CDT Ancillary Procedure [facility] [place] [address] 02/08/2024 Travel 02/08/2024 Telephone [facility] [place] [address] Oracio Lucero MD Pre Procedure (Colonoscopy) from Last 3 Months Immunizations Name Administration Dates Next Due Hepatitis A (Adult) 07/06/2016,03/17/2006 Hepatitis A, Unspecified 03/17/2006 Influenza RIV4 (Age 18+ Years) PRESERV FREE 09/2019,04/30/2019 Influenza Virus, Unspecified 05/01/2006 Influenza, High-dose Inactivated 05/22/2018 Influenza, High-dose Quadriv alent Inactivated 05/22/2023,05/30/2022,04/15/2021 Influenza, IIV3 (Age >=3 years) 05/01/2006 Influenza, IIV4 07/06/2016 Influenza, Inactivated IIV3 (Age 65+ Years) Preserv Free 03/28/2024,06/20/2017 Pneumococcal Poly,23-Valent (Pneumovax) 07/10/20 17 Pneumococcal conj [...] Answer Date Recorded PHQ-2 TOTAL SCORE 0 03/26/2024 Social Connections Answer Date Recorded Frequency of [...] Sign Reading Time Taken Comments Blood Pressure 120/77 03/28/2024 7:41 AM CDT Pulse 82 03/28/2024 7:41 AM CDT Temperature 36.8 ??C (98.3 ??F) 03/28/2024 7:41 AM CD T Respiratory Rate 12 03/14/2024 12:35 PM CDT Oxygen Saturation 99% 03/28/2024 7:41 AM CDT Inhaled Oxygen Concentration - - Weight 83.2 kg (183 lb 6.4 oz) 03/28/2024 7:41 A M CDT Height 157.5 cm (5' 2.01) 03/28/2024 7:41 AM CD T Body Mass Index 33.54 03/28/2024 7:41 AM CDT Plan of Treatment Upcoming Encounters Date Type Department Care Team (Late st Contact Info) Description 04/11/2024 8:00 AM CDT Office Visit [facility] [address] [place] [address] Deidre Moore MD [address] [place] [address] Health Maintenance Due Date Last Done Comments Hepatitis C screening for ag e 18-02/15/1968 COVID-19 vaccine series (2022- season) 2024 05/22/2023, 05/30/2022, 12/09/2021, Additional history exists Mammogram for age 45-75 02/21/2025 02/22/20, 02/08/2024, 02/02/2023, Additional history exists BMI (ht and wt on same day) for age 18+ 03/28/2025 03/28/2024, 03/19/2024, 02/09/2023, Additional history exists Depression screening for age 12+ 03/28/2025 03/28/2024, 03/20/2024, 03/19/2024, Additional history exists Medicare Wellness for age 65+ 03/29/2025, 02/09/2023, 01/27/2022, Additional history exists Tetanus booster 07/06/2026 07/06/2016, 02/17/2004 Lipids for age 45-75 03/28/2029 03/28/2024, 02/09/2023, 01/27/2022, Additional history exists Colonoscopy through age 75 03/15/203103/15, 03/14/2024, 07/04/2018, Additional history exists Tdap Completed 07/06/2016 Pneumococcal series for age 65+ Completed 7, 07/06/2016 DEXA/DXA scan for age 65+ Completed 02/08/2018 Zoster (shingles) series for age 50+ Completed 02/25/2020, 05/07/2019 Influenza for age 65+ Completed 03/28/2024 , 05/22/2023, 05/30/2022, Additional history exists Procedures Procedure Name Priority Date/Time Associated Diagnosis Comments CBC WITH AUTO DIFFERENTIAL Routine 03/28/2024 7:35 AM CDT HTN (hypertension) LIPID PANEL W REFLEX MEASURED LDL Routine 03/28/2024 7:35 AM CDT Hyperlipidemia LDL goal <130 ALT (SGPT) Routine 03/28/2024 7:35 AM CDT HTN (hypertension) BASIC METABOLIC PANEL Routine 03/28/2024 7:35 AM CDT HTN (hypertension) CBC WITH AUTO DIFFERENTIAL Routine 03/28/2024 7:35 AM CDT HTN (hypertension) MR BREAST CAD WWO BILATERAL JACOB 03/21/2024 12:00 AM CDT Malignant neoplasm of upper-inner quadrant of right breast in female, estrogen receptor positive (HC) COLONOSCOPY 03/14/2024 11:07 AM CDT LAB TRACKING [...] 1:45 PM CDT Visit for screening mammogram XR DXA BONE DENSITY 2 SITES AXIAL Routine 02/08/2018 11:12 AM CDT Menopause from Last 3 Months or Most Recently Relevant to Health Maintenance Results * CBC WITH AUTO DIFFERENTIAL (03/28/2024 7:35 AM CDT) WHITE BLOOD COUNT 6.9 4.5 - 11.0 thou/cu mm 03/28/2024 7:39 AM CDT [facility] RED BLOOD COUNT 4.20 4.00 - 5.20 mil/cu mm 03/28/2024 7:39 AM CDT [facility] HEMOGLOBIN 12.9 12.0 - 16.0 g/dL 03/28/2024 7:39 AM CDT [facility] HEMATOCRIT 37.8 33.0 - 51.0 % 03/28/2024 7:39 AM CDT [facility] MCV 90 80 - 100 fL 03/28/2024 7:39 AM CDT [facility] MCH 30.7 26.0 - 34.0 pg 03/28/2024 7:39 AM CDT [facility] MCHC 34.1 32.0 - 36.0 g/dL 03/28/2024 7:39 AM CDT [facility] RDW 13.3 11.5 - 15.5 % 03/28/2024 7:39 AM CDT [facility] PLATELET COUNT 282 140 - 440 thou/cu mm 03/28/2024 7:39 AM CDT [facility] MPV 9.5 6.5 - 11.0 fL 03/28/2024 7:39 AM CDT [facility] % NEUT 48.0 % 03/28/2024 7:39 AM CDT [facility] % LYMPH 36.2 % 03/28/2024 7:39 AM CDT [facility] % MONO 11.5 % 03/28/2024 7:39 AM CDT [facility] % EOS 4.0 % 03/28/2024 7:39 AM CDT [facility] % BASO 0.3 % 03/28/2024 7:39 AM CDT [facility] ABSOLUTE NEUTROPHILS 3.3 1.7 - 7.0 thou/cu mm 03/28/2024 7:39 AM CDT [facility] ABSOLUTE LYMPHOCYTES 2.5 0.9 - 2.9 thou/cu mm 03/28/2024 7:39 AM CDT [facility] ABSOLUTE MONOCYTES 0.8 <0.9 thou/cu mm 03/28/2024 7:39 AM CDT [facility] ABSOLUTE EOSINOPHILS 0.3 <0.5 thou/cu mm 03/28/2024 7:39 AM CDT [facility] ABSOLUTE BASOPHILS 0.0 <0.3 thou/cu mm 03/28/2024 7:39 AM CDT [facility] Blood BLOOD SPECIMEN / Unknown Venipuncture / Unknown 03/28/2024 7:35 AM CDT 03/28/2024 7:35 AM CDT Saad Noriega MD HEMATOLOGY [facility] [address] [place] [address], * LIPID PANEL W REFLEX MEASURED LDL (03/28/2024 7:35 AM CDT) CHOLESTEROL,TOTAL 183 100 - 199 mg/dL 03/28/2024 1:36 PM CDT [facility] Comment: Cholesterol, Total Reference Ranges Desirable <200 mg/dL Borderline 200-239 mg/dL High >=240 mg/dL TRIGLYCERIDES 110 <150 mg/dL 03/28/2024 1:36 PM CDT [facility] HDL CHOLESTEROL 67 >40 mg/dL 1:36 PM CDT [facility] NON-HDL CHOLESTEROL 116 <145 mg/dl 03/28/2024 1:36 PM CDT [facility] CHOL/HDL RATIO 2.73 <4.50 03/28/2024 1:36 PM CDT [facility] LDL CHOLESTEROL 94 <=130 mg/dL 03/28/2024 1:36 PM CDT [facility] VLDL CHOLESTEROL 22 <=30 mg/dL 03/28/2024 1:36 PM CDT [facility] PROVIDER ORDERED STATUS RANDOM 03/28/2024 1:36 PM CDT [facility] Blood BLOOD SPECIMEN / Unknown Venipuncture / Unknown 03/28/2024 7:35 AM CDT 03/28/2024 7:35 AM CDT Saad Noriega MD CHEMISTRY Performing Organization Address City/[facility] [address]/ZIP Co de Phone Number [facility] [address] [place] [address], [place] * ALT (SGPT) (03/28/2024 7:35 AM CDT) ALT (SGPT) 30 10 - 35 IU/L 03/28/2024 1:36 PM CDT [facility] Blood BLOOD SPECIMEN / Unknown Venipuncture / Unknown 03/28/2024 7:35 AM CDT 03/28/2024 7:35 AM CDT Saad Noriega MD CHEMISTRY Performing Organization Address City/[facility] [address]/ZIP Co de Phone Number [facility] [address] [place], [place] [id number], [place] * (ABNORMAL) BASIC METABOLIC PANEL (03/28/2024 7:35 AM CDT) SODIUM 143 136 - 145 mmol/L 03/28/2024 1:36 PM CDT [facility] POTASSIUM 4.0 3.5 - 5.1 mmol/L 03/28/2024 1:36 PM CDT [facility] CHLORIDE 105 98 - 107 mmol/L 03/28/2024 1:36 PM CDT [facility] CO2,TOTAL 28 22 - 29 mmol/L 03/28/2024 1:36 PM CDT [facility] ANION GAP 10 5 - 18 03/28/2024 1:36 PM CDT [facility] GLUCOSE 96 70 - 99 mg/dL 03/28/2024 1:36 PM CDT [facility] CALCIUM 9.2 8.8 - 10.2 mg/dL 03/28/2024 1:36 PM CDT [facility] BUN 15 8 - 23 mg/dL 03/28/2024 1:36 PM CDT [facility] CREATININE 0.81 0.50 - 0.90 mg/dL 03/28/2024 1:36 PM CDT [facility] BUN/CREAT RATIO 19 10 - 20 1:36 PM CDT [facility] eGFR 77(L) >90 mL/min/1.7 3m2 03/28/2024 1:36 PM T [facility] Comment:As of 2021, eG FR is calculated by the CKD-EPI creatinine equation without race adjustment. ??eGFR can be influenced by muscle mass, exercise, and diet. ??The reported eGFR is an estimation only and is only applicable if the renal function is stable. Blood BLOOD SPECIMEN / Unknown Venipuncture / Unknown 03/28/2024 7:35 AM CDT 03/28/2024 7:35 AM CDT Saad Noriega MD CHEMISTRY [facility] [address] [address], * MR BREAST CAD WWO BILATERAL (03/21/2024 12:00 AM CDT) Anatomical Region Laterality Modality BREASTS, Breast Left, Breast Right Bilateral Magnetic Resonance Deidre Moore MD MR * COLONOSCOPY (03/14/2024 11:07 AM CDT) 03/14/2024 [...] candidate for conscious sedation. The endoscope [id number] was passed through the anus andadvanced to [...] 11:07 AM Procedure Code(s): --- Professional --- 85170, Colonoscopy, flexible; diagnostic, including collection of specimen(s) bybrushing or washing, when performed (separateprocedure) Diagnosis Code(s): --- Professional --- Z86.010, Personal history of colonicpolyps CPT copyright 2022 [employer]. All rights reserved. The codes documented in this report are preliminary and upon blade bender furnace tender reviewmay be revised to meet current compliance requirements. Scope In: 11:56:39 AM Scope Withdrawal Time 0 hours 6 minutes 46 seconds Scope Out: 12:12:29 PM Oracio Lucero MD PROCEDURE ORD * LAB TRACKING EVENT (03/01/2024 9:47 AM CDT) Other (Other) Client Collect / Unknown 03/01/2024 9:47 AM CDT 03/01/2024 10:20 PM CDT Doctor Unknown LAB BILL ONLY [facility] [address] [place] [address], * PATH BREAST CORE BIOPSY (03/01/2024 9:47 AM CDT) Case Report Pathology Report ?Case: [id number] ? Authorizing Provider: ??Unknown, Doctor ?Collected: ? 03/01/2024 0947 ? Ordering Location: ? [facility] ?Received: ?03/02/2024 0546 ? Pathologist: ? Tello Rodriguez MD ? Specimen: ?Right Breast Core Ultrasound Biopsy ? 03/06/2024 11:20 AM CDT [facility] Amendment 03/06/2024 - Amendment issued to incorporate ancillary studies. 03/06/2024 11:20 AM CDT [facility] Final Diagnosis A) RIGHT BREAST, 2:00, 2 CM FROM NIPPLE, ULTRASOUND-GUIDE D CORE BIOPSY: 1. Invasive ductal carcinoma ?? a. Whitehouse grade: II of III; Nely score: 6 of 9 ?? b. Angio-lymphatic invasion: Absent ?? c. Associated DCIS: Absent 2. Breast Ancillary Testing: ?a. Hormone Receptors: ?Estrogen receptor: Positive (99%, strong staining) ?Progesterone receptor: Positive (93%, strong staining) ?b. HER2 by IHC: Negative (0 by manual morphometry) ?c. Ki-67: 14% by image analysis 03/06/2024 11:20 AM T [facility] Amendment electronically signed by Emma Almanzar MD on 03/06/2024 at 11:20 AM Comment A) This is an image-guided breast biopsy. The pathologic findings should be correlated with radiologic and clinical findings prior to treatment decisions. Case seen in consultation with Dr. Louie. 03/06/2024 11:20 AM T [facility] Clinical Information 1.1 x 1.1 x 0.7 cm, solid, lobulated, circumscribed, hypo- and hyperechoic right breast mass at 2:00, 2 cm from the nipple. Clip shape: Oval (immediately adjacent to lesion). 03/06/2024 11:20 AM T [facility] Gross Description A) Label: Patient's [...] hours. [place] 03/02/2024 03/06/2024 11:20 AM T [facility] Microscopic Description The final diagnosis is based on microscopic examination of appropriate sections of all specimens. A) The presence of black ink is confirmed on tissue sections. IHC studies (block A1) are interpreted as follow: SMMS... ?Negative for investing myoepithelial cells p63... ? Negative for investing myoepithelial cells 03/06/2024 11:20 AM CDT [facility] SYNOPTIC REPORTING Breast Biomarker Reporting Template [...] analyzed for Ki-67. 03/06/2024 11:20 AM CDT [facility] Additional Information Patients with breast cancers [...] not result in eligibility currently). Interpreted at [facility] - [address] [place] [address] [facility] [address] [address] Immunohistochemi stry controls were reviewed and approved by the pathologist during this examination. 03/06/2024 11:20 AM CDT [facility] Other (Right Breast Core Ultrasound Biopsy) 03/01/2024 9:47 AM CDT 03/02/2024 5:46 AM CDT Doctor Unknown PATHOLOGY/CYTOLOGY [facility] [address] [place] [address], [place] * US BIOPSY BREAST NEEDLE W [...] RIGHT BREAST LIMITED ULTRASOUND, 02/22/2024 PLEASE SEE [id number] FOR COMBINED REPORT WITH RIGHT DIGITAL MAMMOGRAM [...] suspicious findings. Saad Noriega MD MAMMO * XR DXA BONE DENSITY 2 SITES AXIAL [56617.1] (02/08/2018 11:12 AM CDT) Anatomical Region Laterality Modality Spine, HIPS, HIPL, HIPR Other Narrative 02/13/2018 8:01 AM CDT Please see scanned document for results of this study. Saad Noriega MD DEXA from Last 3 Months or Most Recently Relevant to Health Maintenance Care Teams Rn Imcu Relationship Specialty Start Date End Date CoreyteSaad gallegos MD [address] [place] [address] PCP - General Family Practice 01/13/16
[2024-04-11 07:06] VITALS: BMI 33.5
[2024-04-11 07:10] VITALS: BP 135/78; PULSE 91; RESP 20; TEMP 36.8; O2SAT 96
[2024-04-11] MEDS: LACTATED RINGERS 1000 ML 1,000 ML 100 ML IV ×2 (07:20→11:33)
[2024-04-11] MEDS: SODIUM CHLORIDE 0.9 % (FLUSH) 10 ML SYRINGE IVF (07:26)
--- NOTE | 2024-04-11 08:00 | CRLHL7_ITS ---
For Patients: As a result of the Century Cures Act, medical imaging exams and procedure reports are released immediately into your electronic medical record. You may view this report before your referring provider. If you have questions, please contact your health care provider. NM SENTINEL LYMPH NODE INJECTION INDICATION RIGHT-sided breast cancer. Injection for sentinel lymph node scintigraphy. Informed consent was obtained by the on-site staff. The benefits and risks of the injection were discussed with the patient. The patient agreed to proceed. Utilizing sterile technique and 1 percent xylocaine for local anesthetic, 510 microcuries of technetium filtered sulfur colloid was injected within an intradermal location along the superolateral margin of the right nipple areolar complex. The patient tolerated the injection well. No immediate complications were documented. No subsequent imaging. IMPRESSION Technically successful RIGHT breast injection for sentinel lymph node scintigraphy. Heri Brown M.D. Diagnostic/Nuclear Medicine Radiologist [email or web address] Transcribed: 8:54 am DW/Dictated by: Heri Brown MD @ 04/11/2024 8:49:00 AM (Electronically Signed)
--- NOTE | 2024-04-11 08:15 | CRLHL7_ITS ---
For Patients: As a result of the Cures Act, medical imaging exams and procedure reports are released immediately into your electronic medical record. You may view this report before your referring provider. If you have questions, please contact your health care provider. BREAST WIRE LOCALIZATION USING ULTRASOUND GUIDANCE CLINICAL HISTORY: Biopsy-proven malignancy. LATERALITY: RIGHT breast. LESION: Solid hypoechoic nodule measures 11 x 7 x 11 millimeters. LOCALIZATION WIRE: Kopans hookwire. TECHNIQUE: The localization wire was placed using real-time ultrasound guidance with image documentation. Cranial-caudal and medial-lateral digital mammograms were obtained after localization wire placement. CONSENT and TIME OUT: The procedure, risks, and alternatives were explained to the patient and a consent was signed. [place] Protocol was followed including pre-procedure verification that relevant information/documentation was available, reviewed and properly matched to the patient; consent accurate and complete; and equipment and supplies available. Time Out was conducted just prior to starting procedure to verify the four required elements: patient identity, correct side/site marked (if applicable), procedure, relevant images/results properly labeled and displayed (if applicable). PROCEDURE: The skin was prepped with ChloraPrep and 6 cc of 1% lidocaine was injected for local anesthesia. The localization wire was placed within or near the targeted breast lesion using ultrasound guidance. The patient tolerated the procedure well. PROXIMITY OF WIRE TO LESION: The wire is within the lesion adjacent to the clip. IMPRESSION: Successful breast wire localization. ACR not applicable Dictated by Bruno Schafer MD @ 04/11/2024 9:13:50 AM jj/Dictated by: Bruno Schafer MD @ 04/11/2024 9:13:00 AM (Electronically Signed)
--- NOTE | 2024-04-11 09:00 | CRLHL7_ITS ---
For Patients: As a result of the Cures Act, medical imaging exams and procedure reports are released immediately into your electronic medical record. You may view this report before your referring provider. If you have questions, please contact your health care provider. PLEASE SEE ULTRASOUND-GUIDED RIGHT BREAST WIRE LOCALIZATION PERFORMED SAME DAY CRL:lore torrez/Dictated by: Bruno Schafer MD @ 04/11/2024 9:13:00 AM (Electronically Signed)
--- NOTE | 2024-04-11 09:04 | W.PM.H&PU ---
History & Physical Update History & Physical Update H&P Reviewed and patient assessed: No changes noted
--- NOTE | 2024-04-11 09:04 | P.GSOP_ITS ---
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 Right lumpectomy with preoperative wire localization 2. Right axillary sentinel lymph node biopsy Indications: The patient is a 74-year-old female who on screening mammogram was found to have a suspicious mass in her right breast at the 2 o'clock position. She underwent diagnostic mammogram and later biopsy which showed. Invasive ductal carcinoma, ERPR positive, HER2 negative. After discussion of options, she elected to proceed with lumpectomy and sentinel lymph node biopsy. Procedure Description: After discussion of risks and benefits, the patient was brought to the operating room and placed supine on the operating table. Patient was given sedation by Anesthesia. 1 hr to incision, I injected radiotracer into the dermis the right breast just above the areola. 10 min prior to the incision I injected 2 ml isosulfan blue dye into the dermis above the areola. This was massaged for 3 min. Once this was completed, the area was prepped and draped sterilely. A time-out was then completed. I began by injecting local anesthetic into the skin and subcutaneous tissue at the nipple areolar border at the area the planned incision in the upper outer in her breast. An incision was then created and in the subcutaneous plane I dissected laterally until the wire was encountered. This was then pulled into t he incision. I then dissected down to the chest wall using cautery. A swath of breast tissue around the wire was then dissected out using cautery. Cautery was used to obtain hemostasis throughout the procedure. The lesion was noted to be in the midportion of the breast tissue, therefore I went down to the chest wall but did not include the fascia. The specimen was excised and inked for orient ation. And this was then sent for mammographies. The specimen was found to contain the clip and the wire. This was then sent to pathology for gross margins. The margin did appear to be close posteriorly. Because of this I then reexcised the swath of tissue all the way down to muscle fascia in the posterior lumpectomy cavity. Per the radiologist's this was closer to the superior aspect and therefore a rim of tissue at the superior margin was then included. The specimen was then inked for orientation and sent in formalin to pathology. Hemostasis at this point appeared excellent. Clips were then placed in the lumpectomy cavity for localization for radiation. I then turned my attention to the sentinel node biopsy. Local anesthetic was injected into the skin and subcutaneous tissue at the area of planned incision at the axillary hairline. Incision was then created and dissection was taken down to subcutaneous fat using cautery. The clavipectoral fascia was entered exposing the axillary fat. Immediately a blue lymphatic was visualized. The probe was then brought into the field. There was a strong signal in this area. A blue lymph node was carefully dissected out. There was what appeared to be an additional adjacent node which was also included. This did not appear to be blue. A clip was used to ligate the lymphatic channel leading to the node. The blue nodes signal was measured ex vivo. This was 186. The adjacent lymph node had a weak signal of 30. The probe was then placed back into the axilla. There were is no further signal noted. There was 1 small blue lymphatic channel. This was dissected out, however this was found to be the original blue lymphatic channel going to the already removed lymph node, identified by a clip that had been placed on it previously. There were no other palpable, radioactive or blue nodes. Hemostasis was achieved with cautery. The wounds were then closed with 3-0 Vicryl dermal and 4-0 Monocryl running subcuticular suture. Sterile dressings were then applied. Instrument sponge and needle counts were correct at the end the case. The patient was then woken and transported to the recovery area in stable condition. ? The patient tolerated the procedure well. Findings: 1. Right breast lumpectomy radiographically containing wire and clip. Gross margin was close posteriorly so additional posterior and superior margin sent 2. They 1 sentinel lymph node identified, with a possible 2nd adjacent lymph node Anesthesia: MAC Surgeon: Deidre Moore MD Estimated blood loss (mL): 5 Specimen: Other Additional Specimen Information: 1. Right breast lumpectomy 2. Right axillary sentinel lymph nodes 3. Re-excision of posterior margin, right breast Condition: stable Disposition: same day [place] Node Biopsy for Breast Cancer Operation Performed with Curative Intent: Yes Tracers used to Identify sentinel nodes in the upfront surgery (non-neoadjuvant) setting: Dye and Radioactive Tracer Tracers used to identify sentinel nodes in the neoadjuvant setting: N/A All nodes (colored or non-colored) present at the end of a dye filled lymphatic channel were removed: Yes All significantly radioactive nodes were removed: Yes All palpably suspicious nodes were removed: Yes Biopsy proven positive nodes marked with clips prior to chemotherapy were identified and removed: Not Applicable
[2024-04-11] MEDS: CEFAZOLIN 2 GM INJ IVP (09:16)
--- NOTE | 2024-04-11 09:17 | W.ANESCHARGE ---
Anesthesia Charges Start Date/Time Anesthesia Start Date: 04/11/24 Anesthesia Start Time: 09:00 Stop Date/Time Anesthesia Stop Date: 04/11/24 Anesthesia Stop Time: 11:17 Summary Extremes of Age - Over 70 or under 1: MDA
[2024-04-11] MEDS: ISOSULFAN BLUE 5 ML VIAL INJECTION (09:25)
[2024-04-11] MEDS: BUPIVACAINE 0.25% 30 ML INJECTION (09:37)
[2024-04-11] MEDS: LIDOCAINE 1% MDV 20 ML INJECTION (09:37)
--- NOTE | 2024-04-11 09:40 | W.ANESCHARGE ---
Anesthesia Charges Start Date/Time Anesthesia Start Date: 04/11/24 Anesthesia Start Time: 09:00 Stop Date/Time Anesthesia Stop Date: 04/11/24 Anesthesia Stop Time: 11:17
--- NOTE | 2024-04-11 09:55 | CRLHL7_ITS ---
For Patients: As a result of the Cures Act, medical imaging exams and procedure reports are released immediately into your electronic medical record. You may view this report before your referring provider. If you have questions, please contact your health care provider. CLINICAL HISTORY: Right breast cancer COMPARISON: 03/21/2024, 03/01/2024 FINDINGS: Two views of the right specimen are submitted. The biopsied mass is present along with the biopsy clip and localization wire. IMPRESSION: The specimen contains the biopsied mass, biopsy clip and localization wire. ACR not applicable. Dictated by Bruno Schafer MD @ 04/11/2024 10:45:37 AM / CRL:[email or web address] RD/Dictated by: Bruno Schafer MD @ 04/11/2024 10:45:00 AM (Electronically Signed)
--- NOTE | 2024-04-11 09:59 | SUR.OPER ---
MARII DOBSON DELIVERED RIGHT BREAST LUMPECTOMY TO [facility].
[2024-04-11 11:16] VITALS: BP 95/53; PULSE 72; RESP 20; TEMP 36.5; O2SAT 93
[2024-04-11] MEDS: hydrOXYzine pamoate 25 MG CAPSULE PO (11:25)
[2024-04-11 11:30] VITALS: BP 97/57; PULSE 70; RESP 18; O2SAT 95
[2024-04-11 11:45] VITALS: BP 102/64; PULSE 70; RESP 18; TEMP 36.5; O2SAT 95
[2024-04-11] MEDS: ACETAMINOPHEN 325 MG TABLET 650 MG PO (11:59)
[2024-04-11 12:00] VITALS: BP 108/67; PULSE 70; RESP 18; O2SAT 95
[2024-04-11 12:30] VITALS: BP 120/42; PULSE 71; RESP 18; O2SAT 95
== END 2024-04-11 13:00 | disposition home or self-care (01) ==
PROVIDERS: PCP Family Medicine; Visit Provider Surgery
PROC: (CPT 19301; principal; 2024-04-11 09:00)
PROC: (CPT 19301; 2024-04-11 09:00)
PROC: (CPT 19301; 2024-04-11 09:00)
DX: C50.211 Malignant neoplasm of upper-inner quadrant of right female breast (principal); Z17.0 Estrogen receptor positive status [ER+]
CPT/HCPCS: 19301; 38525; 00404; 01610; 19285; 38792; 77065; 88305; 88307; 99100; A9270; A9541; C1769; J0330; J0665; J0690; J1100; J2250; J2405; J2704; J2795; J3010; J7120

== ENCOUNTER 2024-04-13 20:17 | Emergency (ER) | payer MEDICARE, BC, SELFPAY ==
[2024-04-13 20:31] VITALS: BP 152/79; PULSE 74; RESP 20; TEMP 37; O2SAT 99; BMI 32.9
--- NOTE | 2024-04-13 20:39 | ED_ITS ---
HPI - Skin/Abscess/Foreign Bdy General Time Seen by Provider: 20:39 Date Seen: 04/13/24 Chief complaint: Skin/Abscess/Foreign Body Stated complaint: Post op rash across chest Time Seen by Provider: 04/13/24 20:39 Source: patient, family and RN notes reviewed Mode of arrival: ambulatory Limitations: no limitations History of Present Illness HPI narrative: Patient is a very pleasant 74-year-old female with history of lumpectomy on April 11 who comes to the emergency room after she noticed a rash on her chest night. Patient had the onset of a rash on her upper chest and it began to spread on to her breasts and under her breast. It is not itchy. She had a lumpectomy with on April 11 without any complications. She has been off her Tylenol for the last 24 hours. She does not know if she received any antibiotics during the surgery but her thought so. She has not been on any oral antibiotics since that time. Time she has not had any new soaps or lotions either. No swelling of the mucous membranes lips or tongue. Related Data Home Medications ?Medication ?Instructions ?Recorded ?Confirmed atorvastatin 20 mg tablet 20 mg PO DAILY 06/09/23 04/13/24 hydrochlorothiazide 25 mg tablet 25 mg PO DAILY 06/09/23 04/13/24 lisinopril 30 mg tablet 30 mg PO DAILY 06/09/23 04/13/24 metoprolol succinate 200 mg 200 mg PO DAILY 06/09/23 04/13/24 tablet,extended release 24 hr Previous Rx's ?Medication ?Instructions ?Recorded hydrocodone 5 mg-acetaminophen 325 1 - 2 tab PO Q6H PRN Pain #15 tabs 04/11/24 mg tablet Allergies Allergy/AdvReac Type Severity Reaction Status Date / Time ciprofloxacin Allergy Mild nightmare Verified 04/13/24 20:34 Review of Systems Status of ROS: Reports: 6 or more systems reviewed and unremarkable except as noted in History and below [facility] Medical History Skin problem ?L98.9 - Disorder of the skin and subcutaneous tissue, unspecified (ICD-10) Elevated cholesterol ?E78.00 - Pure hypercholesterolemia, unspecified (ICD-10) Elevated blood pressure reading with diagnosis of hypertension ?I10 - Essential (primary) hypertension (ICD-10) Surgical History History of lumpectomy ?Z98.890 - Other specified postprocedural states (ICD-10) Family History Father Diabetes Heart disease Brother Diabetes Mother Heart disease Social History Smoking Status: Never smoker Do you use any of these nicotine containing products: None Second hand tobacco smoke exposure: No How often do you have a drink containing alcohol: 2-4 times a month Alcohol t ype: wine How many standard drinks containing alcohol do you have on a typical day: 1 or 2 AUDIT-C Alcohol total score: 2 Non-prescribed substance use: denies use Caffeine: Yes Exam Narrative: Exam Narrative: Patient is alert and oriented. No acute distress. No wheezing. No facial swelling. Heart with a regular rate and rhythm and lungs are clear. Examination of the chest shows very small areas of erythema almost a air traffic control specialist take Munoz on the anterior chest extending onto the upper breasts. There is also some of this lateral to the right breast nipple and on the upper quadrant of the left breast. There is also areas just beneath the breasts on the upper abdomen. There is no weeping. These are macular. Const: Vital Signs, click to edit/add: Vital Signs - 24 hr 04/13/24 20:31 04/13/24 20:45 Temperature 98.6 F Pulse Rate 75 Pulse Rate [Right Pulse Oximeter] 74 Respiratory Rate 20 Blood Pressure [Ri ght Upper Arm] 152/79 H Pulse Oximetry 99 95 Oxygen Delivery Me thod Room Air Documenting provider has reviewed patient's vital signs: yes Course Course ED Course: 1. Rash-the most likely source is the cleansing solution the used prior to the surgery on the but I am not entirely sure of that. We will treat this with prednisone 20 mg daily x5 days. I did put this prescription into the [employer] (formerly [employer]) machine. Recommend continued monitoring. Return for worsening symptoms. 2. Disposition-home at this time. Return for worsening symptoms and as needed. Vital Signs Vital signs: Initial Vital Signs Temperature 98.6 F 04/13/24 20:31 Temperature Source Temporal Artery Scan 09/21/24 20:31 Pulse Rate 74 04/13/24 20:31 Respiratory Rate 20 04/13/24 20:31 Blood Pressure 152/79 H 04/13/24 20:31 Blood Pressure Mean 103 04/13/24 20:31 Blood Pressure Position Sitting 04/13/24 20:31 Pulse Oximetry 99 04/13/24 20:31 Oxygen Delivery Method Room Air 04/13/24 20:31 Vital Signs Temperature 98.6 F 04/13/24 20:31 Pulse Rate 74 04/13/24 20:31 Respiratory Rate 20 04/13/24 20:31 Blood Pressure 152/79 H 04/13/24 20:31 Pulse Oximetry 99 04/13/24 20:31 Oxygen Delivery Method Room Air 04/13/24 20:31 Temperature 98.6 F 04/13/24 20:31 Pulse Rate 75 04/13/24 20:45 Respiratory Rate 04/13/24 20:31 Blood Pressure 152/79 H 04/13/24 20:31 Pulse Oximetry 95 04/13/24 20:45 Oxygen Delivery Method Room Air 04/13/24 20:31 MDM - Skin/Abscess/Foreign Bdy Medical Records Attestation: I reviewed the patient's medical records. Discharge Plan Discharge Clinical Impression: Rash Patient Disposition: Home, Self-Care Condition: Unchanged Additional Instructions: Recommend starting prednisone for treatment of the rash. I put this out in our medication vending machine. Seek medical attention for worsening symptoms especially swelling of the face mouth difficulty speaking or sore throat. Prescriptions: No Action atorvastatin 20 mg tablet 20 mg PO DAILY metoprolol succinate 200 mg tablet extended release 24 hr 200 mg PO DAILY lisinopril 30 mg tablet 30 mg PO DAILY hydrochlorothiazide 25 mg tablet 25 mg PO DAILY hydrocodone-acetaminophen 5-325 mg Tablet 1 - 2 tab PO Q6H PRN (Reason: Pain) Qty: 15 0RF Follow Up/Referrals: Saad Noriega MD [Primary Care Provider] - Stand Alone Forms: MyHealth Info Instructions
[2024-04-13 20:45] VITALS: PULSE 75; O2SAT 95
[2024-04-13 21:16] VITALS: BP 115/74; PULSE 74; RESP 20; TEMP 37; O2SAT 95
[2024-04-13 21:18] VITALS: BP 115/74; PULSE 74; RESP 20; TEMP 37
--- OUTSIDE RECORDS SUMMARY | 2024-04-13 21:18 | XMS_ITS | Clinical Summary ---
Author Organization [employer] [facility] Address [place], [place] [address] Care Team Providers Care Improvement Nurse Name Role Phone Saad Noriega MD Primary [...] 03/28/20 24 Discontinued(Reo rder (E-cancel not sent)) Active Problems Problem Noted Date Diagnosed Date Rectocele 02/09/2023 Adenomatous colon polyp 07/05/2018 Overview (03/14/2024): Colonoscopy 06/2018 polyp, repeat in 5 years Colonoscopy 02/2024 normal, repeat in 7-10 years Hyperlipidemia LDL goal <130 12/14/2017 HTN (hypertension) 09/08/2015 Encounters Date Type Department Care Team Description 04/12/2024 Lab Requisition [facility] [phone] Deidre Moore MD 04/11/2024 8:00 AM CDT Office Visit [facility] at [facility] [address] [facility] [place] [address] Deidre Moore MD Arrived 04/11/2024 Orders Only [facility] Scanner 1 scan: (1-Ord) [facility], [place] SENTINEL NODE, 04/11/2024 04/11/2024 Orders Only [facility] Scanner 1 scan: (1-Ord) [facility], MM SURGICAL SPECIMEN RT, 04/11/2024 04/11/2024 Orders Only [facility] Scanner 1 scan: (1-Ord) [place], RT LUMPECTOMY WITH PREOPERATIVE WIRE LOCALIZATION, 04/11/2024 04/11/2024 Lab Requisition [facility] [phone] Deidre Moore MD 03/28/2024 7:30 AM CDT Office Visit [facility] [address] [facility] [place] [address] VotelSaad MD Medicare ANNUAL (subsequent) Visit (74 year old female); Preoperative Exam (Rt breast, [place], 04/11/24, Dr. Moore) 03/28/2024 Travel 03/27/2024 Orders Only [facility] [address] [facility] [place] [address] Deidre Moore MD 1 scan: (1-Ord) [facility], BREAST BI WITHOUT AND WITH CONTRAST, 03/21/2024 03/27/2024 Orders Only [facility] [address] [facility] [place] [address] Deidre Moore MD <No scans attached> 03/27/2024 Orders Only [facility] [address] [facility] [place] [address] Deidre Moore MD <No scans attached> 03/26/2024 Travel 03/20/2024 Refill [facility] [address] [place] [address] Saad Noriega MD Refill Request (Lisinopril, Hydrochlorothiazide, Atorvastatin, Metoprolol Succinate Sr) 03/19/2024 9:10 AM CDT Office Visit [facility] [address] [place] [address] Saad Noriega MD Follow Up (Colonoscopy) 03/18/2024 Travel 03/14/2024 11:00 AM CDT Office Visit [facility] [address] [facility] [place] [address] Oracio Lucero MD Procedure (Colonoscopy) 03/14/2024 Travel 03/12/2024 2:00 PM CDT Office Visit [facility] [address] [facility] [place] [address] Deidre Moore MD Consult (Breast cancer) 03/11/2024 Travel 03/08/2024 Telephone [facility] [address] [facility] [address] Oracio Lucero MD Appointment Reminder (Colonoscopy on 03/14/2024 arriving at 1100) 03/01/2024 Orders Only [facility] Scanner 1 scan: (1-Ord) [place] US GUIDED BREAST BIOPSY RT, 03/01/2024 03/01/2024 Lab Requisition [facility] [phone] Unknown, Doctor 03/01/2024 Orders Only [place] [address] [facility] [address] Saad Noriega MD 2 scans: (2-Ord) [place], MM CLIP PLACEMENT RIGHT, 03/01/2024 02/22/2024 2:30 PM CDT Ancillary Procedure [place] [address] [address] [facility] [address] 02/22/2024 2:00 PM CDT Ancillary Procedure [facility] [address] [place] [address] 02/22/2024 Ancillary Orders [facility] [address] [facility] [place] [address] Saad Noriega MD 02/22/2024 Travel 02/08/2024 1:20 PM CDT Ancillary Procedure [facility] [address] [place] [address] 02/08/2024 Travel 02/08/2024 Telephone [facility] [address] [place] [address] Oracio Lucero MD Pre Procedure (Colonoscopy) from [...] Care Team (Late st Contact Info) Description 04/23/2024 2:15 PM CDT Office Visit [facility] [address] [place] [address] Diedre Moore MD [address] [place] [address] Health Maintenance Due Date Last Done Comments Hepatitis C screening for ag e 18-79 1968 COVID-19 vaccine series ( season) 2024 05/22/2023, 05/30/2022, 12/09/2021, Additional history exists Mammogram for age 45-75 02/21/2025 02/22/20 24, 02/08/2024, 02/02/2023, Additional history exists BMI (ht [...] Procedure Name Priority Date/Time Associated Diagnosis Comments SCAN-NUCLEAR MEDICINE 04/11/2024 12:00 AM CDT SCAN-DIAGNOSTIC REPORT 04/11/2024 12:00 AM CDT SCAN-OPERATIVE/PROCED URE REPORT 04/11/2024 12:00 AM CDT CBC WITH AUTO DIFFERENTIAL Routine 03/28/2024 7:35 [...] Recently Relevant to Health Maintenance Results * SCAN-OPERATIVE/PROCEDURE REPORT (04/11/2024 12:00 AM CDT) Scanner OTHER * SCAN-DIAGNOSTIC REPORT (04/11/2024 12:00 AM CDT) Scanner OTHER * SCAN-NUCLEAR MEDICINE (04/11/2024 12:00 AM CDT) Anatomical Region Laterality Modality Other Scanner OTHER * CBC WITH AUTO DIFFERENTIAL (03/28/2024 7:35 AM CDT) WHITE BLOOD COUNT 6.9 4.5 - 11.0 thou/cu mm 03/28/2024 7:39 AM CDT [facility] RED BLOOD COUNT 4.20 4.00 - 5.20 mil/cu mm 03/28/2024 7:39 AM CDT [facility] HEMOGLOBIN 12.9 12.0 - 16.0 g/dL 03/28/2024 7:39 AM CDT [facility] HEMATOCRIT 37.8 33.0 - 51.0 % 03/28/2024 7:39 AM CDT [facility] MCV 90 80 - 100 fL 03/28/2024 7:39 AM CDT [facility] MCH 30.7 26.0 - 34.0 pg 03/28/2024 7:39 AM CDT [facility] MCHC 34.1 32.0 - 36.0 g/dL 03/28/2024 7:39 AM CDT [facility] RDW 13.3 11.5 - 15.5 % 03/28/2024 7:39 AM CDT [facility] PLATELET COUNT 282 140 - 440 thou/cu mm 03/28/2024 7:39 AM CDT [facility] MPV 9.5 6.5 - 11.0 fL 03/28/2024 7:39 AM CDT [facility] % NEUT 48.0 % 03/28/2024 7:39 AM CDT [facility] % LYMPH 36.2 % 03/28/2024 7:39 AM CDT [facility] % MONO 11.5 % 03/28/2024 7:39 AM CDT [facility] % EOS 4.0 % 03/28/2024 7:39 AM CDT [facility] % BASO 0.3 % 03/28/2024 7:39 AM CDT [facility] ABSOLUTE NEUTROPHILS 3.3 1.7 - 7.0 thou/cu mm 03/28/2024 7:39 AM CDT [facility] ABSOLUTE LYMPHOCYTES 2.5 0.9 - 2.9 thou/cu mm 03/28/2024 7:39 AM CDT [facility] ABSOLUTE MONOCYTES 0.8 <0.9 thou/cu mm 03/28/2024 7:39 AM CDT [facility] ABSOLUTE EOSINOPHILS 0.3 <0.5 thou/cu mm 03/28/2024 7:39 AM CDT [facility] ABSOLUTE BASOPHILS 0.0 <0.3 thou/cu mm 03/28/2024 7:39 AM CDT [facility] Blood BLOOD SPECIMEN / Unknown Venipuncture / Unknown 03/28/2024 7:35 AM CDT 03/28/2024 7:35 AM CDT Saad Noriega MD HEMATOLOGY [facility] [address] [place] [address], * LIPID PANEL W REFLEX MEASURED LDL (03/28/2024 7:35 AM CDT) CHOLESTEROL,TOTAL 183 100 - 199 mg/dL 03/28/2024 1:36 PM CDT [facility] Comment: Cholesterol, Total Reference Ranges Desirable <200 mg/dL Borderline 200-239 mg/dL High >=240 mg/dL TRIGLYCERIDES 110 <150 mg/dL 03/28/2024 1:36 PM CDT [facility] HDL CHOLESTEROL 67 >40 mg/dL 1:36 PM T [facility] NON-HDL CHOLESTEROL 116 <145 mg/dl 03/28/2024 1:36 PM T [facility] CHOL/HDL RATIO 2.73 <4.50 03/28/2024 1:36 PM CDT [facility] LDL CHOLESTEROL 94 <=130 mg/dL 03/28/2024 1:36 PM CDT [facility] VLDL CHOLESTEROL 22 <=30 mg/dL 03/28/2024 1:36 PM CDT [facility] PROVIDER ORDERED STATUS RANDOM 03/28/2024 1:36 PM CDT [facility] Blood BLOOD SPECIMEN / Unknown Venipuncture / Unknown 03/28/2024 7:35 AM CDT 03/28/2024 7:35 AM CDT Saad Noriega MD CHEMISTRY [facility] [address] [place] [address], * ALT (SGPT) (03/28/2024 7:35 AM CDT) ALT (SGPT) 30 10 - 35 IU/L 03/28/2024 1:36 PM CDT [facility] Blood BLOOD SPECIMEN / Unknown Venipuncture / Unknown 03/28/2024 7:35 AM CDT 03/28/2024 7:35 AM CDT Saad Noriega MD CHEMISTRY Performing Organization Address City[facility] Co de Phone Number [facility] [address] [place] [address], * (ABNORMAL) BASIC METABOLIC PANEL (03/28/2024 7:35 AM CDT) SODIUM 143 136 - 145 mmol/L 03/28/2024 1:36 PM CDT [facility] POTASSIUM 4.0 3.5 - 5.1 mmol/L 03/28/2024 1:36 PM CDT [facility] CHLORIDE 105 98 - 107 mmol/L 03/28/2024 1:36 PM CDT [facility] CO2,TOTAL 28 22 - 29 mmol/L 03/28/2024 1:36 PM CDT [facility] ANION GAP 10 5 - 18 03/28/2024 1:36 PM CDT [facility] GLUCOSE 96 70 - 99 mg/dL 03/28/2024 1:36 PM CDT [facility] CALCIUM 9.2 8.8 - 10.2 mg/dL 03/28/2024 1:36 PM CDT [facility] BUN 15 8 - 23 mg/dL 03/28/2024 1:36 PM CDT [facility] CREATININE 0.81 0.50 - 0.90 mg/dL 03/28/2024 1:36 PM CDT [facility] BUN/CREAT RATIO 19 10 - 20 1:36 PM CDT [facility] eGFR 77(L) >90 mL/min/1.7 3m2 03/28/2024 1:36 PM CDT [facility] Comment:As of 2021, eG FR [...] 7:35 AM CDT Saad Noriega MD CHEMISTRY [facility] [address] [place] [address], * MR BREAST CAD WWO BILATERAL (03/21/2024 [...] candidate for conscious sedation. The endoscope [id number] was passed through the anus andadvanced to [...] 11:07 AM Procedure Code(s): --- Professional --- 44200, Colonoscopy, flexible; diagnostic, including collection of specimen(s) bybrushing or washing, when performed (separateprocedure) Diagnosis Code(s): --- Professional --- Z86.010, Personal history of colonicpolyps CPT copyright 2022 [employer]. All rights reserved. The codes documented in this report are preliminary and upon cable hooker reviewmay be revised to meet current compliance requirements. Scope In: 11:56:39 AM Scope Withdrawal Time 0 hours 6 minutes 46 seconds Scope Out: 12:12:29 PM Oracio Lucero MD PROCEDURE ORD * LAB TRACKING EVENT (03/01/2024 9:47 AM CDT) Other (Other) Client Collect / Unknown 03/01/2024 9:47 AM CDT 03/01/2024 10:20 PM CDT Doctor Unknown LAB BILL ONLY [facility] [address] [place] [address], * PATH BREAST CORE BIOPSY (03/01/2024 9:47 AM CDT) Case Report Pathology Report ?Case: [id number] ? Authorizing Provider: ??Unknown, Doctor ?Collected: ? 03/01/2024 0947 ? Ordering Location: ? [facility] ?Received: ?03/02/2024 0546 ? Pathologist: ? Tello Rodriguez MD ? Specimen: ?Right Breast Core Ultrasound Biopsy ? 03/06/2024 11:20 AM [facility]AL [facility] Amendment 03/06/2024 - Amendment issued to incorporate ancillary studies. 03/06/2024 11:20 [facility] Final Diagnosis A) RIGHT BREAST, 2:00, 2 CM FROM NIPPLE, ULTRASOUND-GUIDE D CORE BIOPSY: 1. Invasive ductal carcinoma ?? a. Nely grade: II of III; Nely score: 6 of 9 ?? b. Angio-lymphatic invasion: Absent ?? c. Associated DCIS: Absent 2. Breast Ancillary Testing: ?a. Hormone Receptors: ?Estrogen receptor: Positive (99%, strong staining) ?Progesterone receptor: Positive (93%, strong staining) ?b. HER2 by IHC: Negative (0 by manual morphometry) ?c. Ki-67: 14% by image analysis 03/06/2024 11:20 AM CDT [facility] Amendment electronically signed by Emma Almanzar MD on 03/06/2024 at 11:20 AM Comment A) This is an image-guided breast biopsy. The pathologic findings should be correlated with radiologic and clinical findings prior to treatment decisions. Case seen in consultation with Dr. Louie. 03/06/2024 11:20 AM T [facility] Clinical Information 1.1 x 1.1 x 0.7 cm, solid, lobulated, circumscribed, hypo- and hyperechoic right breast mass at 2:00, 2 cm from the nipple. Clip shape: Oval (immediately adjacent to lesion). 03/06/2024 11:20 AM [facility] Gross Description A) Label: Patient's name [...] 72 hours. [place] 03/02/2024 03/06/2024 11:20 AM [facility] Microscopic Description The final diagnosis is based on microscopic examination of appropriate sections of all specimens. A) The presence of black ink is confirmed on tissue sections. IHC studies (block A1) are interpreted as follow: SMMS... ?Negative for investing myoepithelial cells p63... ? Negative for investing myoepithelial cells 03/06/2024 11:20 AM [facility] REPORT[facility] Breast Biomarker Reporting Template BREAST [...] were analyzed for Ki-67. 03/06/2024 11:20 AM T [facility]C [facility]AL LAB[facility] Additional Information Patients [...] not result in eligibility currently). Interpreted at [facility], Central Laboratory - [address] [facility] [address], [place] [address] Immunohistochemi stry controls were reviewed and approved by the pathologist during this examination. 03/06/2024 11:20 AM CDT [facility] Other (Right Breast Core Ultrasound Biopsy) 03/01/2024 9:47 AM CDT 03/02/2024 5:46 AM CDT Doctor Unknown PATHOLOGY/CYTOLOGY [facility] [address] [place] [address], [place] * US BIOPSY BREAST NEEDLE W [...] For Patients: As a result of the Century Cures Act, medical imaging exams and procedure reports are released immediately into your electronic medical record. ??You may view this report before your referring provider. ?? If you have questions, please contact your health care provider. RIGHT BREAST LIMITED ULTRASOUND, 02/22/2024 PLEASE SEE [id number] FOR COMBINED REPORT WITH RIGHT DIGITAL MAMMOGRAM [...] For Patients: As a result of the Century Cures Act, medical imaging exams and [...] XR DXA BONE DENSITY 2 SITES AXIAL [68440.1] (02/08/2018 11:12 AM CDT) Anatomical Region Laterality Modality Spine, HIPS, HIPL, HIPR Other Narrative 02/13/2018 8:01 AM CDT Please see scanned document for results of this study. aSad Noriega MD DEXA from Last 3 Months or Most Recently Relevant to Health Maintenance Care Teams Improvement Nurse Relationship Specialty Start Date End Date Saad Noriega MD [address] [place] [address] PCP - General Family Practice 01/13/16
== END 2024-04-13 21:18 | disposition home or self-care (01) ==
LOC: ED 21:17
PROVIDERS: Emergency Provider Family Medicine; PCP Family Medicine
DX: R21 Rash and other nonspecific skin eruption (principal)
CPT/HCPCS: 99283

== ENCOUNTER 2024-05-16 13:39 | Outpatient (CLI) | payer MEDICARE, BC, SELFPAY ==
--- OUTSIDE RECORDS SUMMARY | 2024-05-16 13:42 | XMS_ITS ---
Author Organization [facility] Address [address] [place] [address] Care Team Providers Care Drafter Plumbing Name Role Phone Unavailable Unavailable Unavailable Surgery Details Not on file Complications Check Surgery Details section. Procedure Estimated Blood Loss Check Surgery Details section. Procedure Findings Check Surgery Details section. Procedure Specimens Taken Check Surgery Details section.
--- OUTSIDE RECORDS SUMMARY | 2024-05-16 13:42 | XMS_ITS | Encounter Summary ---
Author Organization [facility] Address [address] [place] [address] Care Team Providers Care Warehouse Guard Name Role Phone Unavailable Primary Care Provider Unavailabl e Reason for Referral * Outpatient (Routine) - Authorized Specialty Diagnoses / Procedures Referred By Maryam rasmussen Referred To Contact Radiation Oncology Ramirez Monroe M.D. [address] [place] [phone] Phone: tel: fax: Ramirez Monroe M.D. [address] [place] [phone] Phone: tel: fax: Referral ID Status Reason Start Date Expiration Date V isits Requested Visits Authorized [id number] Authorized 05/01/2024 10/31/2025 1 1 Reason for Visit * Appointment Request (Routine) - Closed Specialty Diagnoses / Procedures Referred By Contac t Referred To Contact Radiation Oncology Diagnoses Malignant Neoplasm Of Breast Female Right (HCC) Deidre Moore M.D. [address] [place] [phone] Phone: tel: fax: Referral ID Status Reason Start Date Expiration Date Visits Re quested Visits Authorized [id number] Closed 04/17/2024 04/17/2025 1 1 Encounter Details Date Type Department Care Team (Latest Contact Info) Description 05/01/2024 9:15 AM CDT - 05/02/2024 4:11 PM CDT Hospital Encounter Department of Radiation Oncology in [address] [phone] Ramirez Monroe M.D. [address] [place] [phone] Malignant Neoplasm Of Breast Upper Inner Quadrant Female Right (HCC) (Primary Dx) Social History Tobacco Use Types Packs/Day Years Used Date Smoking Tobacco: Never Smokeless Tobacco: Never Tobacco Cessation:Counseling Given: Not Answered Alcohol Use Standard Drinks/Week Comments Yes 0 (1 standard drink = 0.6 oz pur e alcohol) Dental Answer Date Recorded Dental: Regular Dentist Unknown 04/17/20 Comments Unknown Sex and Gender Information Value Date Recorded Sex Assigned at Not on file Legal Sex Female 10:52 AM CDT Gender Identity Not on file Sexual Orientation Not on file documented as of this encounter Last Filed Vital Signs Vital Sign Reading Time Taken Comments Blood Pressure 124/70 05/01/2024 9:26 AM CDT Pulse 75 05/01/2024 9:26 AM CDT Temperature 36.7 ??C (98.1 ??F) 05/01/2024 9:26 AM CD T Respiratory Rate - - Oxygen Saturation - - Inhaled Oxygen Concentration - - Weight 83.9 kg (184 lb 15.5 oz) 05/01/2024 9:26 AM CDT Height - - Body Mass Index - - documented in this encounter Medications at Time of Discharge atorvastatin (Lipitor) 20 mg tablet Take 1 tablet by mouth daily. 03/22/2024 hydroCHLOROthiazi de (HydroDiuril) 25 mg tablet Take 1 tablet by mouth daily. 03/28/2024 lisinopriL 30 mg tablet Take 1 tablet by mouth daily. 03/28/2024 metoprolol succinate (Toprol XL) 200 mg 24 hr tablet Take 1 tablet by mouth daily. 03/22/2024 multivitamin-iron tablet Take 1 tablet by mouth daily. vitamins A,C,L-orfs-gmjqpm (PreserVision AREDS) 7,160 Units-113 mg-100 Units per tablet Take 1 tablet by mouth daily. documented as of this encounter Consult Notes * Felicia Macias M.D. - 05/01/2024 9:30 AM CDT RADIATION ONCOLOGY CONSULTATION Supervising Cage/Vault Supervisor: Dr. Monroe Referring Provider: Deidre Moore M.D. Home address: [address] [place] [phone] SUBJECTIVE History of present illness Claudia Currie is a 74 y.o. 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 The patient's oncologic history is as follows: Oncology History Malignant Neoplasm Of Breast Upper Inner Quadrant Female Right (HCC) 02/08/2024 Critical Imaging Bilateral screening mammogram demonstrated right breast asymmetry/mass. No suspicious findings in left breast 02/22/2024 Critical Imaging Diagnostic right breast mammogram and ultrasound: Persistent spiculated density is present within the [...] measuring 7 x 5 x 4 mm. 03/01/2024 Biopsy/Pathology Final Diagnosis A) RIGHT BREAST, 2:00, 2 CM FROM NIPPLE, ULTRASOUND-GUIDED CORE BIOPSY: 1. Invasive ductal carcinoma a. Kincheloe grade: II of III; Nely score: 6 of 9 b. Angio-lymphatic invasion: Absent c. Associated DCIS: Absent 2. Breast Ancillary Testing: a. Hormone Receptors: Estrogen receptor: Positive (99%, strong staining) Progesterone receptor: Positive (93%, strong staining) b. HER2 by IHC: Negative (0 by manual morphometry) c. Ki-67: 14% by image analysis 03/21/2024 Critical Imaging MR Breast IMPRESSIONS AND RECOMMENDATIONS: RIGHT Breast: 1. Mass at 2 o`clock, middle depth measuring up to 1.1 cm on MRI is consistent with the biopsy-proven malignancy. No additional suspicious areas of enhancement. Surgical/oncologic follow-up for continued management. 2. No adenopathy. LEFT Breast: Negative, there is no MRI evidence of contralateral malignancy. 04/11/2024 Surgery and Procedures Right breast lumpectomy and sentinel lymph node biopsy with Dr. Deidre Moore Final Diagnosis A) RIGHT BREAST, WIRE-LOCALIZED LUMPECTOMY: 1. Invasive ductal carcinoma, Kincheloe grade II of III a. Size: 13 mm b. Core biopsy site is associated with tumor 2. Margins: a. Invasive carcinoma is 2 mm from the anterior margin and 3 mm from the posterior margin (see PartC for final posterior margin) 3. Breast Ancillary Testing: Performed on prior case ([id number]) a. Hormone Receptors: Estrogen receptor: Positive (99%, strong staining) Progesterone receptor: Positive (93%, strong staining) b. HER2 by IHC: Negative (0 by manual morphometry) c. Ki-67: 14% by image analysis B) RIGHT AXILLARY SENTINEL LYMPH NODE, 1, BIOPSY: 1. Negative for malignancy in 3 lymph nodes (0/3) C) RIGHT BREAST, POSTERIOR MARGIN, RE-EXCISION: 1. Negative for atypia and malignancy SYNOPTIC REPORTING SPECIMEN Procedure: Excision (less than total mastectomy) Specimen Laterality: Right TUMOR Tumor Site: Clock position : 2 o'clock Tumor Site: Distance from nipple (Centimeters): 2 cm Histologic Type: Invasive carcinoma of no special type (ductal) Histologic Grade (Nely Histologic Score): Glandular (Acinar) / Tubular Differentiation: Score 2 Nuclear Pleomorphism: Score 2 Mitotic Rate: Score 2 Overall Grade: Grade 2 (scores of 6 or 7) Tumor Size: Greatest dimension of largest invasive focus (Millimeters): 13 mm Tumor Focality: Single focus of invasive carcinoma Ductal Carcinoma In Situ (DCIS): Not identified Lymphatic and / or Vascular Invasion: Not identified Dermal Lymphatic and / or Vascular Invasion: No skin present Treatment Effect in the Breast: No known presurgical therapy MARGINS Margin Status for Invasive Carcinoma: All margins negative for invasive carcinoma Distance from Invasive Carcinoma to Closest Margin: 2 mm Closest Margin(s) to Invasive Carcinoma: Anterior REGIONAL LYMPH NODES Regional Lymph Node Status: : All regional lymph nodes negative for tumor Total Number of Lymph Nodes Examined (sentinel and non-sentinel): 3 Number of [place] Nodes Examined: 3 pTNM CLASSIFICATION (AJCC 8th Edition) pT Category: pT1c pN Category: pN0 N Suffix: (sn) 04/29/2024 Other Scheduled to meet with Dr. Boyer [facility] 05/08/2024 - Radiation Therapy Radiation Therapy Treatment Details (Noted on 04/23/2024) Site: Right Breast Technique: No technique specified Goal: Curative Planned Treatment Start Date: 05/08/2024 In the clinic today, Claudia Currie states she has recovered from surgery well. She used Tylenol for pain but hasn't needed any over the last 5 days. 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 Past medical history Pertinent past medical history, past surgical history, medications, allergies, social history, and family history were reviewed. Pertinent past medical history includes none. The patient does not have a history of lupus, scleroderma, or ulcerative colitis. The patient has no implanted medical devices. Social history is significant for never smoker. Review of systems Review of systems as noted in HPI. OBJECTIVE Vitals Weight: 83.9 kg Physical exam ECO Constitutional: Pleasant, in no acute distress, ambulates without an assistive device. ASSESSMENT / PLAN #1 pT1cN0 ER/WY+ HER2- right breast invasive ductal carcinoma Claudia Currie is a 74 y.o. female with early stage right breast cancer who is seen in Radiation Oncology for a discussion of radiation treatment. I have reviewed the pertinent history, laboratory, and imaging studies. The patient met with medical oncology earlier this week and decided to have Oncotype Dx testing. If her Oncotype is elevated, she would like to pursue chemotherapy. We discussed that radiation is typically the last step in treatment, so timing of radiation will depend on whether or not she undergoes chemotherapy. We discussed the logistics of radiation simulation, planning, and daily treatment. We would plan onone week of radiation to the right breast. We also reviewed the acute and late toxicities associated with treatment including skin erythema, skin thickening and discoloration, and fatigue. The patient displayed understanding of the risks and benefits. The patient meets with medical oncology to review Oncotype results on 05/20. We will tentatively plan to see her back in clinic with sim following her appointment. If the patient chooses to pursue chemotherapy, we will postpone our visit until after completion of chemo. All questions were answered to the patient's satisfaction. Our departmental contact information wasprovided to the patient who was encouraged to contact the Department of Radiation Oncology with further questions or concerns. Upcoming oncologic appointments and tests 05/20/24 Follow up with medical oncology 05/21/24 (approximately) follow up with Dr. Mabel Macias M.D. Dr. Monroe is the residential solar consultant; please see his attestation for details. Cosigned by Ramirez Monroe M.D. at 05/02/2024 4:10 PM CDT Associated attestation - Ramirez Monroe M.D. - 05/02/2024 4:10 PM CDT I was the supervising physician in the delivery of the service. I personally saw the patient and reviewed the indications and goals of treatment as well as the potential risks and adverse effects with the patient. I agree with the documentation provided by Dr. Macias. Since he is waiting for Oncotype DX results and possible chemotherapy we could not give her definitive schedule regarding radiation. We will see her back after she has these results and then discuss a radiation treatment plan at that point. I anticipate that radiation therapy would be for 1 week duration but we need to understand if she has going to undergo chemotherapy 1st in which case radiation therapy would start after her chemo is completed. documented in this encounter Plan of Treatment Upcoming Encounters Date Type Department Care Team (Late st Contact Info) Description 05/21/2024 3:30 PM CDT Appointment Department of Radiation Oncology in [address] [phone] Ramirez Monroe M.D. [address] [place] [phone] 05/21/2024 4:00 PM CDT Appointment Department of Radiation Oncology in [address] [phone] Rmairez Monroe M.D. [facility] [place] [address] Scheduled Referrals Name Type Priority Associated Diagnoses Orde r Schedule Radiation Oncology office visit (clinic) Outpatient Referral Routine Expected: 05/21/2024, Expires: 08/01/2025 documented as of this encounter Visit Diagnoses Diagnosis Malignant Neoplasm Of Breast Upper Inner Quadrant Female Right (HCC)- Primary documented in this encounter
--- OUTSIDE RECORDS SUMMARY | 2024-05-16 13:42 | XMS_ITS | Encounter Summary ---
Author Organization [facility] Address [address] [place] [address] Care Team Providers Care Photographic Equipment Mechanic Name Role Phone Unavailable Primary Care Provider Unavailabl e Encounter Details Date Type Department Care Team (Late st Contact Info) Description 05/16/2024 Orders Only Department of Radiation Oncology in [place], [place] [address] [place] [address] Felicia Macias M.D. [address] [place] [phone] Social History Tobacco Use Types Packs/Day Years Used Date Smoking Tobacco: Never Smokeless Tobacco: Never Alcohol Use Standard Drinks/Week Comments Yes 0 (1 standard drink = 0.6 oz pur e alcohol) Dental Answer Date Recorded Dental: Regular Dentist Unknown 04/17/20 Comments Unknown Sex and Gender Information Value Date Recorded Sex Assigned at Not on file Legal Sex Female 10:52 AM CDT Gender Identity Not on file Sexual Orientation Not on file documented as of this encounter Plan of Treatment Upcoming Encounters Date Type Department Care Team (Late st Contact Info) Description 05/21/2024 3:30 PM CDT Appointment Department of Radiation Oncology in [address] [phone] Ramirez Monroe M.D. [address] [place] [address] 05/21/2024 4:00 PM CDT Appointment Department of Radiation Oncology in [place] [address] [place] [phone] Ramirez Monroe M.D. [facility] [place] [address] documented as of this encounter Visit Diagnoses Not on filedocumented in this encounter
--- OUTSIDE RECORDS SUMMARY | 2024-05-16 13:42 | XMS_ITS | Clinical Summary ---
Author Organization [facility] Address [address] [place] [address] Care Team Providers Care Thermal Surfacing Machine Operator Name Role Phone Unavailable Primary Care Provider Unavailabl e Source Comments Patient records contain information from all sites at [facility]. For routine questions regarding patient records, call [phone] during business hours, M-F 8:00 AM - 5:00 PM Central Time. Record requests for emergency care only can be directed to [phone] at any time.[facility] Medications atorvastatin (Lipitor) 20 mg tablet Take 1 tablet by mouth daily. 03/22/2024 Active hydroCHLOROthiaz clarke (HydroDiuril) 25 mg tablet Take 1 tablet by mouth daily. 03/28/2024 Active lisinopriL 30 mg tablet Take 1 tablet by mouth daily. 03/28/2024 Active metoprolol succinate (Toprol XL) 200 mg 24 hr tablet Take 1 tablet by mouth daily. 03/22/2024 Active vitamins A,C,U-nfhf-jyuny r (PreserVision AREDS) 7,160 Units-113 mg-100 Units per tablet Take 1 tablet by mouth daily. Active multivitamin-iro n tablet Take 1 tablet by mouth daily. Active Active Problems Problem Noted Date Diagnosed Date Malignant Neoplasm Of Breast Upper Inner Quadrant Female Right 04/23/2024 Encounters Date Type Department Care Team Description 05/16/2024 Orders Only Department of Radiation Oncology in [place], [place] [address] [place] [phone] Felicia Macias M.D. 05/01/2024 9:15 AM CDT - 05/02/2024 4:11 PM CDT Hospital Encounter Department of Radiation Oncology in [place], [place] [address] [place] [phone] Ramirez Monroe M.D. Malignant Neoplasm Of Breast Upper Inner Quadrant Female Right (HCC) (Primary Dx) 04/23/2024 Orders Only Department of Radiation Oncology in [address] [phone] Evelyn Cevallos APRN, C.N.P., D.N.P. Malignant Neoplasm Of Breast Upper Inner Quadrant Female Right (HCC) (Primary Dx) from Last 3 Months Social History Tobacco Use Types Packs/Day Years [...] on file Sexual Orientation Not on file Last Filed Vital Signs Vital Sign Reading [...] - - Body Mass Index - - Plan of Treatment Upcoming Encounters Date Type Department Care Team (Late st Contact Info) Description 05/21/2024 3:30 PM CDT Appointment Department of Radiation Oncology in [address] [phone] Ramirez Monroe M.D. [place] [phone] 05/21/2024 4:00 PM CDT Appointment Department of Radiation Oncology in [address] [phone] Ramirez Monroe M.D. [address] [place] [phone] Health Maintenance Due Date Last Done Comments Bone Density Scan (Osteoporo sis Screen) 1950 CT Colonography 1950 Cologuard 1950 Hepatitis C Screening 1950 Depression Screening (Annual PHQ-2) 07/24/2023 Fall Risk Screen (Annual) 07/24/2023 COVID-19 Vaccine (2023-2 5 season) 2024 Creatinine Level (Kidney Fun ction Test) 03/28/2025 03/28/2024, 02/09/2023, 01/27/2022, Additional history exists Potassium Level 03/28/2025 03/28/2024, 01/22, 01/27/2022, Additional history exists Sodium Level 03/28/2025 03/28/2024, 01/22, 01/27/2022, Additional history exists Mammogram 04/11/2025 04/11/2024, 03/24, 03/01/2024, Additional history exists DTaP,Tdap,and Td Vaccines (2 - Td or Tdap) 07/06/2026 07/06/2016 Fasting Glucose for Diabetes Screening 03/28/2027 03/28/2024, 02/09/2023, 01/27/2022, Additional history exists Colonoscopy 03/14/2029 03/14/2024 Colorectal Cancer Surveillance 03/14/2029 Pneumococcal vaccine (65+ years) Completed 07/10/20 17, 07/06/2016 Zoster Vaccines Completed 02/25/2020, 05/07/2019 Influenza Vaccine Completed 03/28/2024, , 05/30/2022, Additional history exists Procedures Procedure Name Priority Date/Time Associated Diagnosis Comments OUTSIDE MG MAMMOGRAM Routine 04/11/2024 10:05 AM CDT OUTSIDE MG MAMMOGRAM Routine 04/11/2024 8:45 AM CDT OUTSIDE US BREAST Routine 04/11/2024 8:1 5 AM CDT OUTSIDE OTHER Routine 04/11/2024 8:00 AM CDT OUTSIDE MR BREAST Routine 03/21/2024 2:4 5 PM CDT OUTSIDE MG MAMMOGRAM Routine 03/01/2024 10:05 AM CDT OUTSIDE US BREAST Routine 03/01/2024 9:1 5 AM CDT OUTSIDE MG MAMMOGRAM Routine 02/22/2024 2:25 PM CDT OUTSIDE US BREAST Routine 02/22/2024 12: 00 AM CDT from Last 3 Months Results * MM surgical specimen RT-Outside Mammogram (04/11/2024 10:05 AM CDT) Only the most recent of4 resultswithin the time period is included. Narrative [facility] - 04/18/2024 10:09 AM CDT This order has been created and auto-finalized to support the import of outside images. If available, original interpretation can be found on the Media Tab in Chart Review, in Document Viewer, as an image in QREADS or as an Addendum. If a re-interpretation or overread is required please follow defined workflow.?? us Provider Not In System IMG BI PROCEDURES Final R esult [facility] NA * US BREAST NEEDLE LOC RT-Outside US Breast (04/11/2024 8:15 AM CDT) Only the most recent of3 resultswithin the time period is included. Narrative [facility] - 04/18/2024 10:09 AM CDT This order has been created and auto-finalized to support the import of outside images. If available, original interpretation can be found on the Media Tab in Chart Review, in Document Viewer, as an image in QREADS or as an Addendum. If a re-interpretation or overread is required please follow defined workflow.?? us Provider Not In System IMG BI PROCEDURES Final R esult Performing Organization Address [facility] de Phone Number [facility] NA * NM sentinel node inject only-Outside Other (04/11/2024 8:00 AM CDT) Narrative [facility] - 04/18/2024 10:07 AM CDT This order has been created and auto-finalized to support the import of outside images. If available, original interpretation can be found on the Media Tab in Chart Review, in Document Viewer, as an image in QREADS or as an Addendum. If a re-interpretation or overread is required please follow defined workflow.?? us Provider Not In System IMG DIAGNOSTIC IMAGING [place] OCEDURES Final Result Performing Organization Address [facility] de Phone Number [facility] NA * MR breast BI wo/w con-Outside MR Breast (03/21/2024 2:45 PM CDT) Narrative [facility] - 04/18/2024 10:23 AM CDT This order has been created and auto-finalized to support the import of outside images. If available, original interpretation can be found on the Media Tab in Chart Review, in Document Viewer, as an image in QREADS or as an Addendum. If a re-interpretation or overread is required please follow defined workflow.?? us Provider Not In System IMG MRI PROCEDURES Final Result Performing Organization Address [facility] de Phone Number [facility] NA from Last 3 Months Insurance [facility] MEDICARE
--- OUTSIDE RECORDS SUMMARY | 2024-05-16 13:42 | XMS_ITS | Referral Summary ---
Author Organization [facility] Address [address] [place] [address] Care Team Providers Care Guidance Director Name Role Phone Unavailable Primary Care Provider Unavailabl e Source Comments Patient records contain information from all sites at [facility]. For routine questions regarding patient records, call [phone] during business hours, M-F 8:00 AM - 5:00 PM Central Time. Record requests for emergency care only can be directed to [phone] at any time.[facility] Encounters Date Type Department Care Team Description 05/16/2024 Orders Only Department of Radiation Oncology in [place], [place] [address] [place] [address] Felicia Macias M.D. 05/01/2024 9:15 AM CDT - 05/02/2024 4:11 PM CDT Hospital Encounter Department of Radiation Oncology in [address] [phone] Ramirez Monroe M.D. Malignant Neoplasm Of Breast Upper Inner Quadrant Female Right (HCC) (Primary Dx) 04/23/2024 Orders Only Department of Radiation Oncology in [address] [phone] Evelyn Cevallos APRN, C.N.P., D.N.P. Malignant Neoplasm Of Breast Upper Inner Quadrant Female Right (HCC) (Primary Dx) from Last 3 Months Medications atorvastatin (Lipitor) 20 mg tablet Take 1 tablet by mouth daily. 03/22/2024 Active hydroCHLOROthiaz clarke (HydroDiuril) 25 mg tablet Take 1 tablet by mouth daily. 03/28/2024 Active lisinopriL 30 mg tablet Take 1 tablet by mouth daily. 03/28/2024 Active metoprolol succinate (Toprol XL) 200 mg 24 hr tablet Take 1 tablet by mouth daily. 03/22/2024 Active vitamins A,C,N-shyo-ekfql r (PreserVision AREDS) 7,160 Units-113 mg-100 Units per tablet Take 1 tablet by mouth daily. Active multivitamin-iro n tablet Take 1 tablet by mouth daily. Active Active Problems Problem Noted Date Diagnosed Date Malignant Neoplasm Of Breast Upper Inner Quadrant Female Right 04/23/2024 Social History Tobacco Use Types Packs/Day Years [...] CDT Appointment Department of Radiation Oncology in [address] [phone] Ramirez Monroe M.D. [facility] [place] [address] 05/21/2024 4:00 PM CDT Appointment Department of Radiation Oncology in [address] [phone] Ramirez Monroe M.D. [facility] [place] [address] Procedures Procedure Name Priority Date/Time Associated Diagnosis [...] resultswithin the time period is included. Narrative [facility] - 04/18/2024 10:09 AM CDT This order [...] resultswithin the time period is included. Narrative [facility] - 04/18/2024 10:09 AM CDT This order [...] PROCEDURES Final R esult Performing Organization Address [facility] de Phone Number [facility] NA * NM sentinel node inject only-Outside Other (04/11/2024 8:00 AM CDT) Narrative [facility] - 04/18/2024 10:07 AM CDT This [...] Provider Not In System IMG DIAGNOSTIC IMAGING [place] OCEDURES Final Result Performing Organization Address [facility] de Phone Number [facility] NA * MR breast BI wo/w con-Outside MR Breast (03/21/2024 2:45 PM CDT) Narrative [facility] - 04/18/2024 10:23 AM CDT This [...] MRI PROCEDURES Final Result Performing Organization Address [facility] de Phone Number [facility] NA from Last 3 Months Insurance [facility] MEDICARE
--- OUTSIDE RECORDS SUMMARY | 2024-05-16 13:42 | XMS_ITS | Encounter Summary ---
Author Organization 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 [address] [place] [address] Phone: tel: fax: [facility] Region Referral ID Status Reason Start Date Expiration Date Visits Re quested Visits Authorized Scheduling Instructions Please do not schedule if patient has 10 fractions or less, unless requested by care team. * Radiation Therapy (Routine) - Authorized Specialty Diagnoses / Procedures Referred By Contac t Referred To Contact Diagnoses Malignant Neoplasm Of Breast Upper Inner Quadrant Female Right (HCC) Procedures Management Visit Ramirez Monroe M.D. [facility] [place] [address] Phone: tel: fax: [facility] Region Referral ID Status Reason Start Date Expiration Date V isits Requested Visits Authorized [id number] Authorized 04/23/2024 04/23/2025 10 10 * Radiation Therapy (Routine) - Authorized Specialty Diagnoses / Procedures Referred By Contac t Referred To Contact Diagnoses Malignant Neoplasm Of Breast Upper Inner Quadrant Female Right (HCC) Procedures Initial Rad Onc Treatment Planning CT Simulation without IV Contrast [place] IMRT RADIOTHERAPY PLAN [place] 3D RAD THER ISODOSE FIELD PLAN Ramirez Monroe M.D. [address] [place] [address] Phone: tel: fax: [facility] Referral ID Status Reason Start Date Expiration Date V isits Requested Visits Authorized [id number] Authorized 04/23/2024 04/23/2025 2 2 * Radiation Therapy (Routine) - Authorized Specialty Diagnoses / Procedures Referred By Contac t Referred To Contact Diagnoses Malignant Neoplasm Of Breast Upper Inner Quadrant Female Right (HCC) Procedures Prior Auth Rad Tx OH RADTN TX DEL >=1 MEV COMPLEX [place] GUIDANCE FOR LOC RAD TX [place] 3D RAD THER ISODOSE FIELD PLAN 3D Ramirez Monroe M.D. [address] [place] [address] Phone: tel: fax: [facility] Referral ID Status Reason Start Date Expiration Date V isits Requested Visits Authorized [id number] Authorized 05/08/2024 04/23/2025 19 19 Encounter Details Date Type Department Care Team (Late st Contact Info) Description 04/23/2024 Orders Only Department of Radiation Oncology in [place], [place] [address] [place] [phone] Evelyn Cevallos APRN, C.N.P., D.N.P. [address] [place] [address] Malignant Neoplasm Of Breast Upper Inner Quadrant Female Right (HCC) (Primary Dx) Social History Tobacco Use Types Packs/Day Years Used Date Smoking Tobacco: Never Smokeless Tobacco: Never Alcohol Use Standard Drinks/Week Comments Yes 0 (1 standard drink = 0.6 oz pur e alcohol) Dental Answer Date Recorded Dental: Regular Dentist Unknown 04/17/20 24 Comments Unknown Sex and Gender Information Value Date Recorded Sex Assigned at Not on file Legal Sex Female 10:52 AM CDT Gender Identity Not on file Sexual Orientation Not on file documented as of this encounter Plan of Treatment Upcoming Encounters Date Type Department Care Team (Late st Contact Info) Description 05/21/2024 3:30 PM CDT Appointment Department of Radiation Oncology in [address] [address] Ramirez Monroe M.D. [address] [place] [phone] 05/21/2024 4:00 PM CDT Appointment Department of Radiation Oncology in [address] [phone] Ramirez Monroe M.D. [address] [place] [phone] Scheduled Orders Name Type Priority Associated Diagnoses Order Schedule Prior Auth Rad Tx Radiation Oncology Routine Malignant Neoplasm Of Breast Upper Inner Quadrant Female Right (HCC) Ordered: 04/23/2024 Management Visit Radiation Oncology Routine Malignant Neoplasm Of Breast Upper Inner Quadrant Female Right (HCC) 10 Occurrences starting 04/23/2024 until 07/24/2025 Scheduled Referrals Name Type Priority Associated Diagnoses Orde r Schedule Radiation Oncology - Nurse education visit (clinic) Outpatient Referral Routine Malignant Neoplasm Of Breast Upper Inner Quadrant Female Right (HCC) Expected: 04/23/2024, Expires: 07/24/2025 documented as of this encounter Visit Diagnoses Diagnosis Malignant Neoplasm Of Breast Upper Inner Quadrant Female Right (HCC)- Primary documented in this encounter
--- NOTE | 2024-05-16 14:00 | CRLHL7_ITS ---
For Patients: As a result of the Century Cures Act, medical imaging exams and procedure reports are released immediately into your electronic medical record. You may view this report before your referring provider. If you have questions, please contact your health care provider. DXA BONE MINERAL DENSITY STUDY Reason for exam: Unspecified menopausal and perimenopausal disorder. Current height (in): 62. Weight (lb): 180. Menopause age: 53. Ethnicity: White. 1. Have you had a previous hip or vertebral fracture? No. 2. Have you had any fractures during your adult life which did not result from significant trauma (e.g., auto accident)? Yes. 3. Did either of your parents have a hip fracture? No. 4. Do you smoke? No. 5. Have you ever taken Glucocorticoids? No. 6. Do you have rheumatoid arthritis? No. 7. Do you have secondary osteoporosis? No. 8. Do you drink 3 or more alcoholic drinks per day? No. 9. Are you being treated for osteoporosis? No. 10. Have you ever taken any of the following medications: Actonel, Evista, Fosamax, Miacalcin, Reclast, Boniva, Forteo, HRT (i.e. estrogen/hormone therapy), Protelos, Prolia, Vitamin D, Calcium, other ??? please specify. ANSWER: Yes, Multivitamins. 11. Do you have any of the following medical conditions: Anorexia or bulimia, asthma or emphysema, end stage renal disease, hyperparathyroidism, any seizure disorders, cancer, inflammatory bowel diseases, hysterectomy, other ??? please specify. ANSWER: Yes, breast cancer, history of ankle fracture. 12. What was your maximum height (inches)? 62. 13. Do you perform weight bearing exercise regularly? No. 14. Do you regularly consume dairy products? Yes. 15. Do you drink caffeinated beverages? Yes. 16. At what age did your period start? 13. 17. Are you premenopausal? No. 18. How many full term pregnancies have you had? 2. 19. Have you ever missed your period for more than 6 months in a row (not including or menopause)? No. TECHNIQUE: Bone mineral density study was performed using the [employer] FINDINGS: The results of the study expressed as bone mineral density (BMD) are as follows: Lumbar spine L1 to L4: BMD: 0.942 g/cm2. T-score: -1.0. Z-score: 1.3. Neck Left: BMD: 0.738 g/cm2. T-score: -1.0. Z-score: 1.0. Right: BMD: 0.737 g/cm2. T-score: -1.0. Z-score: 1.0. Total Left: BMD: 0.912 g/cm2. T-score: -0.2. Z-score: 1.4. Right: BMD: 0.860 g/cm2. T-score: -0.7. Z-score: 1.0. IMPRESSION: Normal bone density. *Comparison exams done prior to 12/2019 were performed on different unit, [place]. Bruno Schafer M.D. Diagnostic Radiologist [email or web address] SP/Dictated by: Bruno Schafer MD @ 05/17/2024 12:07:00 PM (Electronically Signed)
== END 2024-05-16 13:40 | disposition home or self-care (01) ==
LOC: RAD 13:40
PROVIDERS: PCP Family Medicine; Visit Provider Internal Medicine Hematology & Oncology
DX: N95.9 Unspecified menopausal and perimenopausal disorder (principal)
CPT/HCPCS: 77080

== ENCOUNTER 2024-09-30 15:03 | Outpatient (RCR) | payer MEDICARE, BC, SELFPAY ==
--- NOTE | 2024-04-29 16:06 | ONC.NURNOTE ---
Oncotype Dx testing requested via [employer] online portal. Patient has follow up 05/20 to review results.
--- NOTE | 2024-05-08 09:48 | ONC.NURNOTE ---
Addendum entered by Melody Wong 05/08/24 10:24: Patient also mentioned that she continues to feel a hard lump around her incision. She plans to have JENIFFER Pabon look at it tomorrow and will alert us if assessment is needed. Original Note: Patient informed of Oncotype score. Patient informed that she will likely not benefit from chemotherapy. Dr. Boyer will discuss results in more detail at her follow up visit. Patient is scheduled for her radiation simulation on 05/21.
== END 2024-10-26 23:59 | disposition home or self-care (01) ==
LOC: CCIC 15:03
PROVIDERS: PCP Family Medicine; Visit Provider Internal Medicine Hematology & Oncology
DX: C50.911 Malignant neoplasm of unspecified site of right female breast; Z17.0 Estrogen receptor positive status [ER+]; Z79.811 Long term (current) use of aromatase inhibitors
CPT/HCPCS: 99202; 99204; 99205; 99213; 99214; G0463

== ENCOUNTER 2024-11-26 17:04 | Emergency (ER) | payer MEDICARE, BC, SELFPAY ==
--- OUTSIDE RECORDS SUMMARY | 2024-11-26 17:07 | XMS_ITS | Clinical Summary ---
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 For routine questions regarding patient records, call [phone] during business hours, M-F 8:00 AM - 5:00 PM Central Time. Record requests for emergency care only can be directed to [phone] at any time.[facility] Allergies Active Allergy Reactions Criticality Noted Date Comments Ciprofloxacin Hallucinations 12/18/2018 Medications atorvastatin (Lipitor) 20 mg tablet Take 1 tablet by mouth daily. 4 Active hydroCHLOROthia zide (HydroDiuril) 25 mg tablet Take 1 tablet by mouth daily. 4 Active lisinopriL 30 mg tablet Take 1 tablet by mouth daily. 4 Active metoprolol succinate (Toprol XL) 200 mg 24 hr tablet Take 1 tablet by mouth daily. 4 Active vitamins A,C,E-zinc-joie er (PreserVision AREDS) 7,160 Units-113 mg-100 Units per tablet Take 1 tablet by mouth daily. Active multivitamin-ir on tablet Take 1 tablet by mouth daily. Active mometasone (Elocon) 0.1 % cream Apply to radiation treatment field twice daily during radiation and for two weeks post radiation treatment. 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 No 05/17/2024 Exercise Vital Sign Answer Date Recorde d On average, how many days pe r week do you engage in moderate to strenuous exercise (like a brisk walk)? 5 days 05/17/2024 On average, how many minutes do you engage in exercise at this level? 30 min 05/17/2024 Hunger Vital Sign Answer Date Recorded Within the past 12 months, y ou worried that your food would run out before you got the money to buy more. Never true 05/17/20 Within the past 12 months, t he food you bought just didn't last and you didn't have money to get more. Never true 05/17/2024 PRAPARE - Transportation Answer Date Re corded In the past 12 months, has l ack of transportation kept you from medical appointments or from getting medications? No 04/24 In the past 12 months, has l ack of transportation kept you from meetings, work, or from getting things needed for daily living? No 05/17/2024 Nutrition Answer Date Recorded On average, how many serving s of fruits and vegetables do you eat per day (serving size is equal to 1 cup or approximately the size of a tennis ball)? 3-5 05/17/2024 Dental Answer Date Recorded Dental: Regular Dentist Yes 05/17/20 Employment Answer Date Recorded Employment status Retired 05/17/2024 Housing Stability Answer Date Recorded What is your living situation today? I have a [facility] place to live 05/17/2024 Comments Unknown Sex and Gender Information Value Date Recorded Sex Assigned at Female 05/17/2024 10:37 AM CDT Legal Sex Female 10:52 AM CDT Gender Identity Female 05/17/2024 10:37 AM CDT Sexual Orientation Straight 05/17/2024 10 :37 AM CDT Last Filed Vital Signs Vital Sign Reading Time Taken Comments Blood Pressure 118/69 08/29/2024 1:02 PM CHIEF SCIENTIST Pulse 74 08/29/2024 1:02 PM CHIEF SCIENTIST Temperature 36.5 C (97.7 F) 08/29/2024 1:02 PM CHIEF SCIENTIST Respiratory Rate - - Oxygen Saturation - - Inhaled Oxygen Concentration - - Weight 87 kg (191 lb 12.8 oz) 08/29/2024 1:02 PM CHIEF SCIENTIST Height - - Body Mass Index - - Plan of Treatment Health Maintenance Due Date Last Done Comments CT Colonography 1950 Cologuard 1950 Hepatitis C Screening 1950 COVID-19 Vaccine (#1) 02/16/1955 RSV vaccine - (32-36 weeks) or 60+ years (1 - Risk 60-74 years 1-dose series) 2011 Depression Screening (Annual PHQ-2) 07/24/2024 Fall Risk Screen (Annual) 07/24/2024 Creatinine Level (Kidney Function Test) 03/28/2025 03/28/2024, 02/09/2023, 01/27/2022, Additional history [...] 03/14/2024 Colorectal Cancer Surveillance 03/14/2029 Pneumococcal vaccine (50+ years) Completed 07/10/2017, 07/06/2016 Bone Density Scan (Osteoporosis Screen) Discontinued 02/08/2018 Zoster Vaccines Completed 02/25/2020, 05/07/2019 Influenza Vaccine Completed 03/28/2024, , 05/30/2022, Additional history exists HPV Vaccines Aged Out No longer eligi ble based on patient's age to complete this topic IPV Vaccines Aged Out No longer eligi ble based on patient's age to complete this topic Procedures Procedure Name Priority Date/Time Associated Diagnosis Comments OUTSIDE MG MAMMOGRAM Routine 04/11/2024 10:05 AM CDT from Last 3 Months or Most Recently Relevant to Health Maintenance Results * MM surgical specimen RT-Outside Mammogram (04/11/2024 10:05 AM CDT) Narrative [facility] - 04/18/2024 10:09 AM CDT This order has been created and auto-finalized to support the import of outside images. If available, original interpretation can be found on the Media Tab in Chart Review, in Document Viewer, as an image in QREADS or as an Addendum. If a re-interpretation or overread is required please follow defined workflow. us Provider Not In System IMG BI PROCEDURES Final R esult [facility] NA from Last 3 Months or Most Recently Relevant to Health Maintenance Insurance [facility] MEDICARE
--- OUTSIDE RECORDS SUMMARY | 2024-11-26 17:07 | XMS_ITS ---
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 Past Treatment and Therapy Plans No past plan information found. 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
--- OUTSIDE RECORDS SUMMARY | 2024-11-26 17:07 | XMS_ITS | Clinical Summary ---
Author Organization [facility] Address [address] [place] [address] Care Team Providers Care Marketing Segment Manager Name Role Phone CoreyteSaad gallegos MD Primary Care Provider + Allergies Active Allergy Reactions Criticality Noted Date Comments Ciprofloxacin Hallucinations 12/18/2018 Medications fluticasone (50 mcg per actuation) nasal solution (FLONASE)Indicat ions:Rhinitis, unspecified type PLACE 2 SPRAYS INTO EACH NOSTRIL ONCE DAILY 48 mL 5 2 Active Additional Information Patient taking differently:Both Nostrils,Hold until asked, Reported on 03/28/2024 multivit-min/iron yumiko fumarate (MULTI VITAMIN ORAL) Take by mouth. Activ e antiox #8/om3/dha/epa/l ut/zeax (PRESERVISION AREDS 2, OMEGA-3, [...] once daily. 90 Tablet 3 4 Active nystatin-triamci nolone ointmentIndicati ons:Rash Apply topically to affected area(s) two times daily. 15 g 4 Active Active Problems Problem Noted Date Diagnosed Date Rectocele 02/09/2023 Adenomatous colon polyp 07/05/2018 Overview (03/14/2024): Colonoscopy 06/2018 polyp, repeat in 5 years Colonoscopy 02/2024 normal, repeat in 7-10 years Hyperlipidemia LDL goal <130 12/14/2017 HTN (hypertension) 09/08/2015 Immunizations Immunization Administration Dates Next Due Hepatitis A (Adult) [...] 0 03/26/2024 Social Connections Answer Date Recorded Do you often feel lonely or isolated from those around you? 0 03/26/2024 Financial Resource Strain Answer Date R ecorded Difficulty of Paying Living Expenses 3 03/19/2024 Difficulty of Paying Living Expenses Not on file 03/19/2024 Food Insecurity Answer Date Recorded Do you worry your food will run out before you are able to buy more? 1 03/26/2024 Transportation Needs Answer Date Record ed Does lack of transportation keep you from medica l appointments? 1 03/26/2024 Does lack of transportation keep you from work, meetings or getting things that you need? 1 03/26/2024 Housing Stability Answer Date Recorded What is your housing situation today? 1 03/26/2024 Utilities Answer Date Recorded Do you have trouble paying f or utilities (for example, heat, electricity, water, phone)? 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 Gender Identity Not on file Sexual Orientation Not on file Obstetrics History Last Filed Vital Signs Vital Sign Reading Time Taken Comments Blood Pressure 110/73 04/16/2024 4:00 PM CDT Pulse 83 04/16/2024 4:00 PM CDT Temperature 36.8 C (98.3 F) 03/28/2024 7:41 AM CDT Respiratory Rate 12 03/14/2024 12:3 5 PM CDT Oxygen Saturation 95% 04/16/2024 4:00 PM CDT Inhaled Oxygen Concentration - - Weight 84.2 kg (185 lb 11.2 oz) 04/16/2024 4:00 PM CDT Height 157.5 cm (5' 2.01) 03/28/2024 7:41 AM CD T Body Mass Index 33.96 03/28/2024 7:41 AM CDT Plan of Treatment Health Maintenance Due Date Last Done Comments Hepatitis C screening for ag e 18-79 1969 RSV vaccine for adults or (1 - Risk 60-74 years 1-dose series) 2011 COVID-19 vaccine series ( season) 2024 05/22/2023, 05/30/2022, 12/09/2021, Additional history exists Mammogram for age 45-75 02/21/2025 02/22/20, 02/08/2024, 02/02/2023, Additional history exists BMI (ht and wt on same day) for age 18+ 03/28/2025 03/28/2024, 03/19/2024, 02/09/2023, Additional history exists Depression screening for age 12+ 03/28/2025 03/28/2024, 03/26/2024, 03/20/2024, Additional history exists Medicare Wellness for age 65+ 03/29/2025, 02/09/2023, 01/27/2022, Additional history exists Tetanus booster 07/06/2026 07/06/2016, 02/17/2004 Lipids for age 45-75 03/28/2029 03/28/2024, 02/09/2023, 01/27/2022, Additional history exists Colonoscopy through age 75 03/15/203103/15, 03/14/2024, 07/04/2018, Additional history exists Tdap Completed 07/06/2016 Pneumococcal series for age 50+ Completed 7, 07/06/2016 Zoster (shingles) series for age 50+ Completed 02/25/2020, 05/07/2019 Influenza Vaccine Completed 03/28/2024, , 04/30/2019, Additional history exists DEXA/DXA scan for age 65+ Completed 05/16/2024, Procedures Procedure Name Priority Date/Time Associated Diagnosis Comments SCAN-BONE DENSITOMETRY DEXA 05/16/2024 12:00 AM CDT LIPID PANEL W REFLEX MEASURED LDL Routine 03/28/2024 7:35 AM CDT Hyperlipidemia LDL goal <130 COLONOSCOPY 03/14/2024 11:07 AM CDT XR MAMMO GISELLE UNI ADDL VIEWS RIGHT JACOB 02/22/2024 2:14 PM CDT Abnormal mammogram from Last 3 Months or Most Recently Relevant to Health Maintenance Results * SCAN-BONE DENSITOMETRY DEXA (05/16/2024 12:00 AM CDT) Anatomical Region Laterality Modality Other us Scanner OTHER Final Result * LIPID PANEL W REFLEX MEASURED LDL (03/28/2024 7:35 AM CDT) CHOLESTEROL,TOTAL 183 100 - 199 mg/dL 03/28/2024 1:36 PM CDT [facility] Comment: Cholesterol, Total Reference Ranges Desirable <200 mg/dL Borderline 200-239 mg/dL High >=240 mg/dL TRIGLYCERIDES 110 <150 mg/dL 03/28/2024 1:36 PM CDT [facility] HDL CHOLESTEROL 67 >40 mg/dL 1:36 PM CDT [facility] NON-HDL CHOLESTEROL 116 <145 mg/dl 03/28/2024 1:36 PM CDT [facility] CHOL/HDL RATIO 2.73 <4.50 03/28/2024 1:36 PM CDT [facility] LDL CHOLESTEROL 94 <=130 mg/dL 03/28/2024 1:36 PM CDT [facility] VLDL CHOLESTEROL 22 <=30 mg/dL 03/28/2024 1:36 PM CDT [facility] PROVIDER ORDERED STATUS RANDOM 03/28/2024 1:36 PM CDT [facility] Blood BLOOD SPECIMEN / Unknown Venipuncture / Unknown 03/28/2024 7:35 AM CDT 03/28/2024 7:35 AM CDT Saad Noriega MD CHEMISTRY Final Re sult [facility] [address] [place] [address], * COLONOSCOPY (03/14/2024 11:07 AM CDT) 03/14/2024 [...] candidate for conscious sedation. The endoscope [id number] was passed through the anus andadvanced to [...] 11:07 AM Procedure Code(s): --- Professional --- 00465, Colonoscopy, flexible; diagnostic, including collection of specimen(s) bybrushing or washing, when performed (separateprocedure) Diagnosis Code(s): --- Professional --- Z86.010, Personal history of colonicpolyps CPT copyright 2022 [employer]. All rights reserved. The codes documented in this report are preliminary and upon design eng reviewmay be revised to meet current compliance requirements. Scope In: 11:56:39 AM Scope Withdrawal Time 0 hours 6 minutes 46 seconds Scope Out: 12:12:29 PM us Oracio Lucero MD PROCEDURE ORD Final Res ult * XR MAMMO GISELLE UNI ADDL VIEWS [...] with the patient. BI-RADS Category 4: Suspicious Dictated by: Bruno Schafer MD @02/22/2024 3:50:43 PM CRL:rcd PATIENTS: You will also receive a letter with your examination results in an easy to read format. If you have questions about your results, please contact your referring provider. Narrative 02/23/2024 1:28 PM CDT For Patients: As a result of the Cures Act, medical imaging exams and procedure reports are released immediately into your electronic medical record. You may view this report before your referring provider. If you have questions, please contact your [...] x 4 mm. Saad Noriega MD MAMMO Final Re sult from Last 3 Months or Most Recently Relevant to Health Maintenance Insurance [employer] [place] [employer] [facility] ONLY Care Teams Marketing Segment Manager Relationship Specialty Start Date End Date Votel, Saad Jaramillo MD [address] [place] [address] PCP - General Family Practice 01/13/16
[2024-11-26 17:09] VITALS: BP 136/87; PULSE 97; RESP 16; TEMP 36.9; O2SAT 97; BMI 33.5
--- NOTE | 2024-11-26 17:17 | CRLHL7_ITS ---
For Patients: As a result of the Cures Act, medical imaging exams and procedure reports are released immediately into your electronic medical record. You may view this report before your referring provider. If you have questions, please contact your health care provider. INDICATION: fall, hit forehead and bridge of nose COMPARISON: None TECHNIQUE: CT of the head without IV contrast and maxillofacial CT without IV contrast. FINDINGS: Brain Parenchyma: No acute infarct, acute intracranial hemorrhage, mass effect, or midline shift. Ventricles: No hydrocephalus. Extra-axial Spaces: No abnormal fluid collection. Paranasal sinuses: No significant mucosal thickening. 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 Nondisplaced nasal bone fracture and nasal septum fracture with slight rightward deviation. Soft tissues: Minimal edema and subcutaneous emphysema in the soft tissues of the nose. IMPRESSION: 1. No CT evidence of an acute intracranial process. 2. Nondisplaced nasal bone fracture and nasal septum fracture with slight deviation to the right. Please note that all CT scans at this facility use dose modulation, iterative reconstruction, and/or weight-based dosing when appropriate to reduce radiation dose to as low as reasonably achievable. Dictated by Eduardo Barajas MD @ 11/26/2024 7:10:34 PM (Electronically Signed)
--- NOTE | 2024-11-26 17:17 | CRLHL7_ITS ---
For Patients: As a result of the Cures Act, medical imaging exams and procedure reports are released immediately into your electronic medical record. You may view this report before your referring provider. If you have questions, please contact your health care provider. INDICATION: Stubbed toe, pain distal aspect TECHNIQUE: Toe radiograph 3 views left 1st COMPARISON: None FINDINGS: Bone: No acute fractures or aggressive bone lesions are identified. Joint: The metatarsophalangeal and interphalangeal joints are normal in appearance. Soft tissue: Overlying fabric artifacts moderately degrade the evaluation of the soft tissues and osseous structures. No radiopaque foreign bodies are seen. IMPRESSION: 1. No acute osseous injuries or abnormalities are noted. Dictated by Joaquin Arguelles MD @ 11/26/2024 7:05:34 PM Dictated by: Joaquin Arguelles MD @ 11/26/2024 19:05:37 (Electronically Signed)
--- NOTE | 2024-11-26 17:18 | CRLHL7_ITS ---
For Patients: As a result of the Century Cures Act, medical imaging exams and procedure reports are released immediately into your electronic medical record. You may view this report before your referring provider. If you have questions, please contact your health care provider. INDICATION: fall, hit forehead and bridge of nose COMPARISON: None TECHNIQUE: CT of the cervical spine without contrast FINDINGS: No acute fracture or malalignment. Mild straightening of the normal cervical lordosis, likely positional. No significant listhesis. Vertebral body heights are maintained. Varying degrees of intervertebral disc height loss, most pronounced at C3-C4 and C6-C7 with mild associated degenerative endplate changes and small disc osteophytes at those levels. Mild to moderate multilevel facet arthropathy. No acute high-grade spinal canal or neuroforaminal stenosis. No suspicious osseous lesions. The soft tissues are unremarkable. IMPRESSION: No acute fracture or trauma-related malalignment. Please note that all CT scans at this facility use dose modulation, iterative reconstruction, and/or weight-based dosing when appropriate to reduce radiation dose to as low as reasonably achievable. Dictated by Eduardo Barajas MD @ 11/26/2024 7:14:04 PM (Electronically Signed)
--- NOTE | 2024-11-26 17:35 | ED.FALL ---
HPI - Fall General Date Seen: 11/26/24 Chief Complaint: Fall/Minor Trauma Stated Complaint: Fell and cut bridge of nose Time Seen by Provider: 11/26/24 17:11 Source: patient Mode of arrival: ambulatory Limitations: no limitations History of Present Illness HPI Narrative: Patient is a 74-year-old female presenting to the emergency department after a fall. She states she was out camping when she was walking to the bathroom and her left great toe got caught on the cement causing her fall forward hitting her face. She currently is complaining of pain to her nose, forehead, left great toe. She states she has been and able to ambulate but it is painful to walk on the toe. Pain seems to be the distal portion of the toe. She did bleed quite a bit from her laceration on the nasal bridge but that has since resolved. She states she otherwise feels fine. Denies lightheadedness, dizziness, headache, vision changes, weakness, numbness, abdominal pain. Her states she seems to be otherwise acting normal. Related Data Home Medications ?Medication ?Instructions ?Recorded ?Confirmed atorvastatin 20 mg tablet 20 mg PO DAILY 06/09/23 09/30/24 hydrochlorothiazide 25 mg tablet 25 mg PO DAILY 06/09/23 09/30/24 lisinopril 30 mg tablet 30 mg PO DAILY 06/09/23 09/30/24 metoprolol succinate 200 mg 200 mg PO DAILY 06/09/23 09/30/24 tablet,extended release 24 hr acetaminophen 500 mg tablet 1,000 mg PO Q6H PRN 04/29/24 09/30/24 (Tylenol Extra Strength) fluticasone propionate 50 1 spray intranasal QDAY PRN 04/29/24 09/30/24 mcg/actuation nasal spray,suspension [id number] 8 mg-folic 400 1 tab PO QDAY 04/29/24 09/30/24 mcg-K 50 mcg-lutein 300 mcg tablet (Centrum Silver Women) Previous Rx's ?Medication ?Instructions ?Recorded calcium 600 mg (as carbonate)-vit 1 tab PO BID #120 tabs 05/20/24 D3 10 mcg (400 unit)-minerals tablet anastrozole 1 mg tablet 1 mg PO QDAY #90 tabs 09/30/24 Allergies Allergy/AdvReac Type Severity Reaction Status Date / Time fentanyl Allergy Intermediate Unknown Verified 11/26/24 17:08 ciprofloxacin Allergy Mild nightmare Verified 11/26/24 17:08 Review of Systems Status of ROS: Reports: 10 or more systems reviewed and unremarkable except as noted in History and below [facility] Medical History Skin problem ?L98.9 - Disorder of the skin and subcutaneous tissue, unspecified (ICD-10) Elevated cholesterol ?E78.00 - Pure hypercholesterolemia, unspecified (ICD-10) Elevated blood pressure reading with diagnosis of hypertension ?I10 - Essential (primary) hypertension (ICD-10) Surgical History History of lumpectomy ?Z98.890 - Other specified postprocedural states (ICD-10) Family History Father Diabetes Heart disease Brother Diabetes Mother Heart disease Social History Smoking Status: Never smoker Do you use any of these nicotine containing products: None Second hand tobacco smoke exposure: No How often do you have a drink containing alcohol: 2-4 times a month Alcohol type: wine How many standard drinks containing alcohol do you have on a typical day: 1 or 2 AUDIT-C Alcohol total score: 2 Non-prescribed substance use: denies use Caffeine: Yes service: No Exam Narrative: Exam Narrative: Const: Well-nourished, Well-developed, in no distress, large amount of blood seen her moving Eyes: PERRL, no conjunctival injection, and symmetrical lids HENT: Atraumatic external nose and ears. Moist mucous membranes. Laceration differential for now with measuring about 1 cm in length. No nasal hematoma seen Neck: Symmetric, trachea midline, No thyromegaly. CVS: RRR, No murmurs or gallops. Peripheral pulses 2+ and equal in all extremities RESP: Unlabored respiratory effort. Clear to auscultation bilaterally. GI: Nontender/Nondistended, No rebound or guarding. MSK:Extremities w/o deformity, Normal Active ROM, tenderness palpation left great toe distal aspect Skin: Warm, Dry. No rashes or lesions. Neuro: Normal Muscle tone, No focal neurological deficits. Psych: Awake, Alert, & Oriented x3. Appropriate mood and affect. Const: Vital Signs, click to edit/add: Vital Signs - 24 hr 11/26/24 17:09 11/26/24 18:24 Temperature 98.4 F Pulse Rate [Pulse Oximeter] 97 73 Respiratory Rate 16 16 Blood Pressure [Ri ght Upper Arm] 136/87 120/77 Pulse Oximetry 97 99 Oxygen Delivery Me thod Room Air Room Air Course Vital Signs Vital signs: Initial Vital Signs Temperature 98.4 F 11/26/24 17:09 Temperature Source Temporal Artery Scan 11/26/24 17:09 Pulse Rate 97 11/26/24 17:09 Respiratory Rate 16 11/26/24 17:09 Blood Pressure 136/87 11/26/24 17:09 Blood Pressure Mean 103 11/26/24 17:09 Blood Pressure Position Sitting 11/26/24 17:09 Pulse Oximetry 97 11/26/24 17:09 Oxygen Delivery Method Room Air 11/26/24 17:09 Vital Signs Temperature 98.4 F 11/26/24 17:09 Pulse Rate 97 11/26/24 17:09 Respiratory Rate 16 11/26/24 17:09 Blood Pressure 136/87 11/26/24 17:09 Pulse Oximetry 97 11/26/24 17:09 Oxygen Delivery Method Room Air 11/26/24 17:09 Temperature 98.4 F 11/26/24 17:09 Pulse Rate 73 11/26/24 18:24 Respiratory Rate 16 11/26/24 18:24 Blood Pressure 120/77 11/26/24 18:24 Pulse Oximetry 99 11/26/24 18:24 Oxygen Delivery Method Room Air 11/26/24 18:24 MDM - Fall MDM Narrative Medical decision making narrative: Patient is a 74-year-old female presenting to the emergency department after a fall. She did hit her face and does have a laceration to her nose. Will do CT scan of the head, facial bones, cervical spine. Will also x-ray her left great toe. Did clean and suture her nose and she tolerated the procedure well. CT scans of her head and cervical spine reviewed by myself and the radiologist showed no acute concerning abnormalities. X-ray of the toe shows no acute concerning abnormalities. CT scan of the facial bones shows a nondisplaced nasal bone fracture and nasal septum fracture with slight deviation to the right. There are no hematomas seen within the nose. She is doing well at this time. She will be discharged home informed to have ENT follow-up Imaging Data CT scan head: Attestation: I have reviewed the pertinent imaging results. Radiologist's impression: 1. No CT evidence of an acute intracranial process. 2. Nondisplaced nasal bone fracture and nasal septum fracture with slight deviation to the right. Please note that all CT scans at this facility use dose modulation, iterative reconstruction, and/or weight-based dosing when appropriate to reduce radiation dose to as low as reasonably achievable. Dictated by Eduardo Barajas MD @ 11/26/2024 7:10:[address] scan cervical spine: Attestation: I have reviewed the pertinent imaging results. Radiologist's impression: No acute fracture or trauma-related malalignment. Please note that all CT scans at this facility use dose modulation, iterative reconstruction, and/or weight-based dosing when appropriate to reduce radiation dose to as low as reasonably achievable. Dictated by Eduardo Barajas MD @ 11/26/2024 7:14:[address] scan face: Attestation: I have reviewed the pertinent imaging results. Radiologist's impression: 1. No CT evidence of an acute intracranial process. 2. Nondisplaced nasal bone fracture and nasal septum fracture with slight deviation to the right. Please note that all CT scans at this facility use dose modulation, iterative reconstruction, and/or weight-based dosing when appropriate to reduce radiation dose to as low as reasonably achievable. Dictated by Eduardo Barajas MD @ 11/26/2024 7:10:34 PM X-ray left great toe: Attestation: I have reviewed the pertinent imaging results. Radiologist's impression: 1. No acute osseous injuries or abnormalities are noted. Dictated by Joaquin Arguelles MD @ 11/26/2024 7:05:34 PM Discharge Plan Discharge Clinical Impression: Laceration Closed fracture of nasal septum Qualifiers: Encounter type: initial encounter Qualified Code(s): S02.2XXA - Fracture of nasal bones, initial encounter for closed fracture Closed fracture nasal bone Qualifiers: Encounter type: initial encounter Qualified Code(s): S02.2XXA - Fracture of nasal bones, initial encounter for closed fracture Patient Disposition: Home, Self-Care Condition: Stable Instructions: Nasal Fracture (ED) Additional Instructions: Follow-up with your primary care provider or urgent care in the next 7 days to have the 5 sutures removed. For next 6 months, once sutures are removed, whenever you go outside put a dab of sunscreen over the laceration site to improve scar appearance. Topical antibiotics are not necessary at this time. Patient can shower but do not submerge the laceration until sutures are removed. You do have a nondisplaced nasal bone fracture and nasal septum fracture with slight deviation to the right. It is recommended you follow-up with ENT within the next 7-14 days Prescriptions: No Action Centrum Silver Women 8 mg iron-400 mcg-50 mcg tablet 1 tab PO QDAY acetaminophen [Tylenol Extra Strength] 500 mg tablet 1,000 mg PO Q6H PRN fluticasone propionate 50 mcg/actuation spray,suspension 1 spray intranasal QDAY PRN Patient Comments: seasonal Rx Instructions: administer into each nostril calcium carbonate-vit D3-min 600 mg-10 mcg (400 unit) tablet 1 tab PO BID Qty: 120 3RF anastrozole 1 mg tablet 1 mg PO QDAY Qty: 90 3RF Rx Instructions: Take 1 tablet oral daily atorvastatin 20 mg tablet 20 mg PO DAILY metoprolol succinate 200 mg tablet extended release 24 hr 200 mg PO DAILY lisinopril 30 mg tablet 30 mg PO DAILY hydrochlorothiazide 25 mg tablet 25 mg PO DAILY Follow Up/Referrals: Saad Noriega MD [Primary Care Provider] - Stand [facility]one [facility] Instructions Procedures Laceration Bridge of nose: Site: face (Nose) Size (cm): 1 Description: linear and clean Depth: simple, single layer Local Anesthetic: lidocaine 1% Amount of anesthesia used (mL): 3 Pre-repair: wound explored, irrigated extensively and deep structures intact Skin layer closed with: nylon Size (cm): 5-0 Number of sutures: 5 Technique: simple, interrupted
--- OUTSIDE RECORDS SUMMARY | 2024-11-26 17:43 | XMS_ITS ---
Author Organization [facility] Address [address] [place] [address] Care Team Providers Care Statistical Financial Analyst Name Role Phone Unavailable Primary Care Provider [...] Fraction Dose Fractions Total Dose Plans Planned [id number] 05/27/2024 - 05/31/2024 520 cGy 5 / 5 2 ,600 cGy Reference Points Delivered [id number] 05/27/2024 - 05/31/2024 2,600 cGy
--- OUTSIDE RECORDS SUMMARY | 2024-11-26 17:43 | XMS_ITS | Clinical Summary ---
Author Organization [facility] Address [address] [place] [address] Care Team Providers Care Printer'S Devil Name Role Phone Unavailable Primary Care Provider Unavailabl e Source Comments Patient records contain information from all sites at [facility]. For routine questions regarding patient records, call [phone] during business hours, M-F 8:00 AM - 5:00 PM Central Time. Record requests for emergency care only can be directed to [phone] at any time.[facility] Allergies Active Allergy Reactions Criticality Noted [...] Department Care Team Description 08/29/2024 12:34 PM CARDROOM SUPERVISOR - 09/17/2024 7:12 PM CARDROOM SUPERVISOR Hospital Encounter Department of Radiation Oncology in [place], [place] [address] [place] [address] Ramirez Monroe M.D. Malignant Neoplasm Of Breast Upper Inner Quadrant Female Right (HCC) (Primary Dx) from Last 3 Months Social History Tobacco Use Types Packs/Day Years Used Date Smoking Tobacco: Never Smokeless Tobacco: Never Tobacco Cessation:Counseling Given: Not Answered Alcohol Use Standard Drinks/Week Comments Yes 0 (1 standard drink = 0.6 oz pur e alcohol) [facility] Utilities Answer Date Recorded In the past 12 months has e [employer], gas, oil, or water [employer] threatened to shut off services in your [...] your living situation today? I have a [facility] place to live 05/17/2024 Comments Unknown Sex and Gender Information Value Date Recorded Sex Assigned at Female 05/17/2024 10:37 AM CDT Legal Sex Female 10:52 AM CDT Gender Identity Female 05/17/2024 10:37 AM CDT Sexual Orientation Straight 05/17/2024 10 :37 AM CDT Last Filed Vital Signs Vital Sign Reading Time Taken Comments Blood Pressure 118/69 08/29/2024 1:02 PM CARDROOM SUPERVISOR Pulse 74 08/29/2024 1:02 PM CARDROOM SUPERVISOR Temperature 36.5 C (97.7 F) 08/29/2024 1:02 PM CARDROOM SUPERVISOR Respiratory Rate - - Oxygen Saturation - - Inhaled Oxygen Concentration - - Weight 87 kg (191 lb 12.8 oz) 08/29/2024 1:02 PM CARDROOM SUPERVISOR Height - - Body Mass Index - [...] System IMG BI PROCEDURES Final R esult IIMA NA from Last 3 Months or Most Recently Relevant to Health Maintenance Insurance [facility] MEDIC[facility]
--- OUTSIDE RECORDS SUMMARY | 2024-11-26 17:43 | XMS_ITS | Clinical Summary ---
Author Organization [facility] Address [address] [place] [address] Care Team Providers Care Early Morning Babysitter Name Role Phone CoreyteSaad gallegos MD Primary [...] on file Legal Sex Female 5:25 AM FORGEMAN HELPER Gender Identity Not on file Sexual Orientation [...] - 199 mg/dL 03/28/2024 1:36 PM CDT [facility] Comment: Cholesterol, Total Reference Ranges Desirable <200 mg/dL Borderline 200-239 mg/dL High >=240 mg/dL TRIGLYCERIDES 110 <150 mg/dL 03/28/2024 1:36 PM CDT [facility] HDL CHOLESTEROL 67 >40 mg/dL 1:36 PM CDT [facility] NON-HDL CHOLESTEROL 116 <145 mg/dl 03/28/2024 1:36 PM CDT [facility] CHOL/HDL RATIO 2.73 <4.50 03/28/2024 1:36 PM CDT [facility] LDL CHOLESTEROL 94 <=130 mg/dL 03/28/2024 1:36 PM CDT [facility] VLDL CHOLESTEROL 22 <=30 mg/dL 03/28/2024 1:36 PM CDT [facility] PROVIDER ORDERED STATUS RANDOM 03/28/2024 1:36 PM CDT [facility] Blood BLOOD SPECIMEN / Unknown Venipuncture / Unknown 03/28/2024 7:35 AM CDT 03/28/2024 7:35 AM CDT Saad Noriega MD CHEMISTRY Final Re sult [facility] [address] [place] [address], * COLONOSCOPY (03/14/2024 11:07 AM CDT) 03/14/2024 [...] candidate for conscious sedation. The endoscope [id number] was passed through the anus andadvanced to [...] 11:07 AM Procedure Code(s): --- Professional --- 29201, Colonoscopy, flexible; diagnostic, including collection of specimen(s) bybrushing or washing, when performed (separateprocedure) Diagnosis Code(s): --- Professional --- Z86.010, Personal history of colonicpolyps CPT copyright 2022 [employer]. All rights reserved. The codes documented in this report are preliminary and upon barber stylist reviewmay be revised to meet current compliance [...] Relevant to Health Maintenance Insurance [employer] BLUE MR PB ONLY Care Teams Early Morning Babysitter Relationship Specialty Start Date End Date Votel, Saad Jaramillo MD [address] [place] [address] PCP - General Family Practice 01/13/16
[2024-11-26 18:24] VITALS: BP 120/77; PULSE 73; RESP 16; O2SAT 99
== END 2024-11-26 19:37 | disposition home or self-care (01) ==
PROVIDERS: Emergency Provider Student in an Organized Health Care Education/Training Program; PCP Family Medicine
DX: S02.2XXA Fracture of nasal bones, initial encounter for closed fracture (principal); S01.21XA Laceration without foreign body of nose, initial encounter; M79.675 Pain in left toe(s); W01.198A Fall on same level from slipping, tripping and stumbling with subsequent striking against other object, initial encounter; Y93.01 Activity, walking, marching and hiking
CPT/HCPCS: 12011; 70450; 70486; 72125; 73660; 99283; 99284; 99285

== ENCOUNTER 2025-02-27 09:30 | Outpatient (RCR) | payer MEDICARE, BC, SELFPAY ==
--- NOTE | 2024-04-10 18:09 | OT.OPLE2 ---
OT Outpatient Lymphedema Eval* OT Outpatient Lymphedema Eval* Start: 04/09/24 18:35 Freq: Status: Active Protocol: Document 04/10/24 07:18 AMB (Rec: 04/10/24 17:55 AMB [id number]) E-signed By Avani Stout, OTR/L, CLT, BACKUP ADMINISTRATOR OT Outpatient Evaluation Details Type Type Eval Complexity Low Insurance Information Insurance Information Insurance Information Medicare B Home Program Home Program Home Program Initiated OT OP Lymphedema Evaluation Current Condition/Medical Diagnosis Referring Provider Dr Moore Medical Diagnoses 189.0 Lymphedema Treatment Diagnosis I890.0 Lymphedema Medical History Medical History Cancer Treatment/Surgery Medical History Comments PMH (copied from medical chart ): Displaced fracture of lateral malleolus of right fibula, subsequent encounter for closed fracture with routine healing (Acute) S82.61XD - Displaced fracture of lateral malleolus of right fibula, subsequent encounter for closed fracture with routine healing (ICD-10) Displaced fracture of lateral malleolus of right fibula, initial encounter for closed fracture (Acute) S82.61XA - Displaced fracture of lateral malleolus of right fibula, initial encounter for closed fracture (ICD-10) Skin problem L98.9 - Disorder of the skin and subcutaneous tissue, unspecified (ICD-10) Elevated cholesterol E78.00 - Pure hypercholesterolemia, unspecified (ICD-10) Elevated blood pressure reading with diagnosis of hypertension I10 - Essential (primary) hypertension (ICD-10) Surgical History Surgical History None Medications Medications atorvastatin 20 mg PO DAILY fluticasone propionate 50 mcg/ actuation sprays intranasal hydrochlorothiazide mg PO DAILY hydrochlorothiazide 25 mg PO DAILY lisinopril mg PO DAILY lisinopril 30 mg PO DAILY metoprolol succinate ER mg PO DAILY metoprolol succinate ER 200 mg PO DAILY simvastatin mg PO .Bedtime triamcinolone acetonide 0.025% applic topical Family History Family History of Lymphedema No Current Work Status Current Work Status Retired Current Work Status Comments 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 It was discovered on her yearly mammogram. Pt states her surgery is tomorrow and she is a little nervous but has good spousal support. Pt's attends OT today, states he will help with all etl informatica architect and assist pt as needed following surgery. Pt states she has never really had any surgery before, other than a D &C following the of her first daughter. Living Situation Current Living Situation Home With Spouse Or SO Problem List Problem List Limited Knowledge of Lymphedema Treatment/Condition /Precautions,Limited Knowledge of Skin Care & Infection Precautions,Significant Risk For Infection For Lymphedema Related Complications,Does Not Have a HEP Exercise History Does Patient Exercise Regularly Yes Exercise Comments Pt normally enjoys walking but she broke her ankle last May and has really never gotten back into it yet as her ankle is still sore and weak. Pain Pain No ROM/Strength ROM/Strength Comments Pt demonstrates full AROM and strength throughout BUE. Circumferential Measurements Upper Extremity Left Upper Extremity MCP (in cm) 18.2 Palm (in cm) 18.6 Smallest Wrist Measurement (in cm) 16.0 10 cm Above Smallest Wrist Measurement 21.0 20 cm Above Smallest Wrist Measurement 26.5 30 cm Above Smallest Wrist Measurement 34.8 40 cm Above Smallest Wrist Measurement 37.8 Total Girth in cm 172.9 UE Volume C 274.01 UE Volume D 450.87 UE Volume E 752.13 UE Volume F 1049.18 Upper Extremity Volume Total in cm 2,526.19 Right Upper Extremity MCP (in cm) 18.2 Palm (in cm) 18.6 Smallest Wrist Measurement (in cm) 16.0 10 cm Above Smallest Wrist Measurement 19.8 20 cm Above Smallest Wrist Measurement 27.0 30 cm Above Smallest Wrist Measurement 35.2 40 cm Above Smallest Wrist Measurement 38.5 Total Girth in cm 173.3 UE Volume C 255.93 UE Volume D 439.17 UE Volume E 774.14 UE Volume F 1081.32 Upper Extremity Volume Total in cm 2,550.56 Assessment Assessment Pt presents pre-operatively for initiation of lymphedema surveillance program. Following her 04/10/24 left sided mastectomy with SLN biopsy, pt is at risk for lymphedema in her LUE / upper quadrant due to LN removal. Pt may need radiation which would add to her risk. Pt will benefit from skilled OT intervention for pt education, monitoring / surveillance in order to provide early detection / intervention to assure best positive outcomes with fewer lymphedema related complications if the need arises. Pt demonstrates good interest and motivation to be an active participant in her care. Pt has good spousal support. Pt asked multiple pertinent questions and received satisfactory answers. Pt was given contact info and encouraged to reach out if more questions arise. Patient Goals Patient Goals 1. Pt will demonstrate a general understanding of the lymphatic system, s/s of lymphedema, treatment of lymphedema, implications of untreated lymphedema, s/s of infection and the correlation of infection related to lymphedema. 3 months 2. Pt will be compliant with quarterly assessments for lymphedema surveillance in order to obtain early intervention with best outcomes if needed. 12 months Treatment Plan Treatment Plan Evaluation,Edema Control, Manual Therapy,Therapeutic Exercise,Therapeutic Activities,Self-Care/Home Management,Education Other Treatment Plan Re-assess 4 weeks post-op and then quarterly x 12 months or prn if needs arise. Certification Certification Statement I Certify That: Therapy Services Provided, Therapy Plan Established, Therapy Plan Reviewed Certification Information Clinic ID # [id number] Initial Certification Date 04/10/24 Recertification Due Date 07/09/24 Provider Signature Required Yes Provider Signature Shows Agreement With POC & Medical Necessity Physician NPI Number Write NPI# Here Physician Comment/Change Comment or Changes Physician Signature & Date Requested Please Sign/Date Here
--- NOTE | 2024-08-06 12:25 | OT.OPLDN2 ---
OT Outpatient Lymphedema Daily Note OT Outpatient Lymphedema Daily Note* Start: 04/09/24 18:35 Freq: Status: Active Protocol: Document 08/06/24 09:07 AMB (Rec: 08/06/24 12:25 AMB [id number]) E-signed By Avani Stout, OTR/L, CLT, ELECTRONIC SEMICONDUCTOR PROCESSOR Type of Note Type of Note Type of Note Daily Note Visit Number 3 Comments SOC: 04/10/24 MC due 10/06/24 Insurance Information Insurance Information Insurance Information Medicare B Home Program Home Program Home Program Compliant Home Program Specifics Self-surveillance, breast / scar tissue mobilization OT OP Lymphedema Daily/Progress Note Current Condition/Medical Diagnosis Referring Provider Dr Moore Treatment Diagnosis I890.0 Lymphedema Date Of Onset DOS: 04/11/25 Medical History Medical History Cancer Treatment/Surgery Medical History Comments PMH (copied from medical chart ): Displaced fracture of lateral malleolus of right fibula, subsequent encounter for closed fracture with routine healing (Acute) S82.61XD - Displaced fracture of lateral malleolus of right fibula, subsequent encounter for closed fracture with routine healing (ICD-10) Displaced fracture of lateral malleolus of right fibula, initial encounter for closed fracture (Acute) S82.61XA - Displaced fracture of lateral malleolus of right fibula, initial encounter for closed fracture (ICD-10) Skin problem L98.9 - Disorder of the skin and subcutaneous tissue, unspecified (ICD-10) Elevated cholesterol E78.00 - Pure hypercholesterolemia, unspecified (ICD-10) Elevated blood pressure reading with diagnosis of hypertension I10 - Essential (primary) hypertension (ICD-10) Surgical History Surgical History None Medications Medications atorvastatin 20 mg PO DAILY fluticasone propionate 50 mcg/ actuation sprays intranasal hydrochlorothiazide mg PO DAILY hydrochlorothiazide 25 mg PO DAILY lisinopril mg PO DAILY lisinopril 30 mg PO DAILY metoprolol succinate ER mg PO DAILY metoprolol succinate ER 200 mg PO DAILY simvastatin mg PO .Bedtime triamcinolone acetonide 0.025% applic topical Family History Family History of Lymphedema No Current Work Status Current Work Status Retired Current Work Status Comments 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 Pt was then put on anastrozole on 06/14/24. Pt feels she is doing ok. Pt had a fu/u with oncology on 07/08. Pt having mild, occasional hot flashes, occasional stomach upset, not sure if this is related to the medication? Pt will see XRT on 08/29/24 and oncology 09/30/24 . Pt states she was surprised, feels that her cancer journey has been much better than she had anticipated. Pt states she had minimal side effects from the XRT. Living Situation Current Living Situation Home With Spouse Or SO Problem List Problem List Limited Knowledge of Lymphedema Treatment/Condition /Precautions,Limited Knowledge of Skin Care & Infection Precautions,Significant Risk For Infection For Lymphedema Related Complications,Does Not Have a HEP Exercise History Does Patient Exercise Regularly Yes Exercise Comments Pt normally enjoys walking but she broke her ankle last May and has really never gotten back into it yet as her ankle is still sore and weak. Pain Pain No ROM/Strength ROM/Strength Comments Pt demonstrates full AROM and strength throughout BUE. Circumferential Measurements Upper Extremity Left Upper Extremity MCP (in cm) 18.2 Palm (in cm) 18.6 Smallest Wrist Measurement (in cm) 16.0 10 cm Above Smallest Wrist Measurement 21.0 20 cm Above Smallest Wrist Measurement 26.5 30 cm Above Smallest Wrist Measurement 34.8 40 cm Above Smallest Wrist Measurement 37.8 Total Girth in cm 172.9 Upper Extremity Volume Total in cm 2,526.19 Right Upper Extremity MCP (in cm) 18.3 Palm (in cm) 18.6 Smallest Wrist Measurement (in cm) 15.7 10 cm Above Smallest Wrist Measurement 20.7 20 cm Above Smallest Wrist Measurement 26.5 30 cm Above Smallest Wrist Measurement 33.5 40 cm Above Smallest Wrist Measurement 37.5 Total Girth in cm 170.8 Upper Extremity Volume Total in cm 2,459.91 Treatment Manual Therapy Minutes (minutes) 15 Manual Therapy Comments Provided review of scar tissue mobilization to the right breast incisional area / scar tissue. Instructed pt to work on her breast in quadrants to address potential development of XRT. Therapeutic Exercise Comments 05/09/24 Provided training and practice in self-scar tissue mobilization for right breast scar. Following demo, pt is able to perform mobilization with minimal cues. Pt was also provided in training and practice of supine shoulder flexion stretch. She was given written instructions for both of these. Access Code: [email or web address] URL: [email or web address] Date: 05/09/2024 Prepared by: Pepper Stout Exercises - Supine Coordinated Shoulder Flexion Reaching to End Range - 1 x daily - 7 x weekly - 1 sets - 10 reps Self-Care/Home Management Minutes ( 20 minutes) Self-Care/Home Management Comments Provided review of patient education regarding the lymphatic system, s/s of lymphedema, treatment options for lymphedema, implications of untreated lymphedema, infection and it's correlation to lymphedema as well as implications of untreated infection. Discussed risk reduction practices including skin care and monitoring strategies. Discussed the importance of regular exercise and healthy habits. 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 She will address this through daily tissue mobilization. Incisional scar tissue has mostly resolved. Pt will continue with self scar mobilization, adding in breast massage / quadrant specific and monitoring her own. Pt will benefit from skilled OT intervention for pt education, monitoring / surveillance in order to provide early detection / intervention to assure best positive outcomes with fewer lymphedema related complications if the need arises. Will re-assess in 3 months. Pt demonstrates good interest and motivation to be an active participant in her care. Pt has good spousal support. Pt asked multiple pertinent questions and received satisfactory answers. Pt was given contact info and encouraged to reach out if more questions arise. Patient Goals Patient Goals 1. Pt will demonstrate a general understanding of the lymphatic system, s/s of lymphedema, treatment of lymphedema, implications of untreated lymphedema, s/s of infection and the correlation of infection related to lymphedema. 3 months 2. Pt will be compliant with quarterly assessments for lymphedema surveillance in order to obtain early intervention with best outcomes if needed. 12 months Treatment Plan Treatment Plan Evaluation,Edema Control, Manual Therapy,Therapeutic Exercise,Therapeutic Activities,Self-Care/Home Management,Education Other Treatment Plan Re-assess 4 weeks post-op and then quarterly x 12 months or prn if needs arise. Occupational Therapy Billing Units Treatment Minutes Timed Treatment Minutes 35 Total Treatment Minutes 35 Billing Units Manual Therapy 1 Self Care/Home Management 1 Certification Statement Certification Statement I Certify That: Therapy Services Provided, Therapy Plan Established, Therapy Plan Reviewed Recertification Information Recertification Information Initial Certification Date 04/10/24 Recertification Start Date 07/09/24 Recertification Due Date 10/06/24 Reasons to Continue Skilled Therapy Pt is participating in a lymphedema surveillance program. She will be seen quarterly for 1 year post surgery / treatment along with self-surveillance. Pt will benefit from continued skilled OT intervention for re- assessment and early intervention to assure best outcomes. Rehabilitation Potential Good Click To Default 'Per treatment plan' Per treatment plan Continued Plan of Care and Interventions Per treatment plan Provider Signature Required Yes Provider Signature Shows Agreement With POC & Medical Necessity Physician NPI Number Write NPI# Here Physician Comment/Change Comment or Changes Physician Signature & Date Requested Please Sign/Date Here
--- NOTE | 2024-10-23 11:12 | OT.OPLDN2 ---
OT Outpatient Lymphedema Daily Note OT Outpatient Lymphedema Daily Note* Start: 04/09/24 18:35 Freq: Status: Active Protocol: Document 10/23/24 09:59 AMB (Rec: 10/23/24 11:12 AMB [id number]) E-signed By Avani Stout, OTR/L, CLT, AGRICULTURAL CHEMIST Type of Note Type of Note Type of Note Daily Note,Recert/Progress Note Visit Number 4 Comments SOC: 04/10/24 MC due 10/06/24 Insurance Information Insurance Information Insurance Information Medicare B Home Program Home Program Home Program Compliant Home Program Specifics Self-surveillance, breast / scar tissue mobilization OT OP Lymphedema Daily/Progress Note Current Condition/Medical Diagnosis Referring Provider Dr Moore Treatment Diagnosis I890.0 Lymphedema Date Of Onset DOS: 04/11/25 Medical History Medical History Cancer Treatment/Surgery Medical History Comments PMH (copied from medical chart ): Displaced fracture of lateral malleolus of right fibula, subsequent encounter for closed fracture with routine healing (Acute) S82.61XD - Displaced fracture of lateral malleolus of right fibula, subsequent encounter for closed fracture with routine healing (ICD-10) Displaced fracture of lateral malleolus of right fibula, initial encounter for closed fracture (Acute) S82.61XA - Displaced fracture of lateral malleolus of right fibula, initial encounter for closed fracture (ICD-10) Skin problem L98.9 - Disorder of the skin and subcutaneous tissue, unspecified (ICD-10) Elevated cholesterol E78.00 - Pure hypercholesterolemia, unspecified (ICD-10) Elevated blood pressure reading with diagnosis of hypertension I10 - Essential (primary) hypertension (ICD-10) Surgical History Surgical History None Medications Medications atorvastatin 20 mg PO DAILY fluticasone propionate 50 mcg/ actuation sprays intranasal hydrochlorothiazide mg PO DAILY hydrochlorothiazide 25 mg PO DAILY lisinopril mg PO DAILY lisinopril 30 mg PO DAILY metoprolol succinate ER mg PO DAILY metoprolol succinate ER 200 mg PO DAILY simvastatin mg PO .Bedtime triamcinolone acetonide 0.025% applic topical Family History Family History of Lymphedema No Current Work Status Current Work Status Retired Current Work Status Comments 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 Pt will have Anastrozole for the next 5 years. Pt has been feeling well. Pt has noticed achiness in her knees, suspects that it is a side effect of the Anastrozole as she didn't have this before. Living Situation Current Living Situation Home With Spouse Or SO Problem List Problem List Limited Knowledge of Lymphedema Treatment/Condition /Precautions,Limited Knowledge of Skin Care & Infection Precautions,Significant Risk For Infection For Lymphedema Related Complications,Does Not Have a HEP Exercise History Does Patient Exercise Regularly Yes Exercise Comments Pt normally enjoys walking but she broke her ankle last May and has really never gotten back into it yet as her ankle is still sore and weak. Pain Pain No ROM/Strength ROM/Strength Comments Pt demonstrates full AROM and strength throughout BUE. Circumferential Measurements Upper Extremity Left Upper Extremity MCP (in cm) 18.2 Palm (in cm) 18.6 Smallest Wrist Measurement (in cm) 16.0 10 cm Above Smallest Wrist Measurement 21.0 20 cm Above Smallest Wrist Measurement 26.5 30 cm Above Smallest Wrist Measurement 34.8 40 cm Above Smallest Wrist Measurement 37.8 Total Girth in cm 172.9 Upper Extremity Volume Total in cm 2,526.19 Right Upper Extremity MCP (in cm) 18.4 Palm (in cm) 18.6 Smallest Wrist Measurement (in cm) 15.7 10 cm Above Smallest Wrist Measurement 20.7 20 cm Above Smallest Wrist Measurement 26.5 30 cm Above Smallest Wrist Measurement 33.5 40 cm Above Smallest Wrist Measurement 37.2 Total Girth in cm 170.6 Upper Extremity Volume Total in cm 2,459.91 Treatment Therapeutic Exercise Comments 05/09/24 Provided training and practice in self-scar tissue mobilization for right breast scar. Following demo, pt is able to perform mobilization with minimal cues. Pt was also provided in training and practice of supine shoulder flexion stretch. She was given written instructions for both of these. Access Code: [email or web address] URL: [email or web address] Date: 05/09/2024 Prepared by: Pepper Stout Exercises - Supine Coordinated Shoulder Flexion Reaching to End Range - 1 x daily - 7 x weekly - 1 sets - 10 reps Self-Care/Home Management Minutes ( 20 minutes) Self-Care/Home Management Comments Provided review of patient education regarding the lymphatic system, s/s of lymphedema, treatment options for lymphedema, implications of untreated lymphedema, infection and it's correlation to lymphedema as well as implications of untreated infection. Discussed risk reduction practices including skin care and monitoring strategies. Discussed and emphasized the importance of regular exercise and healthy habits. Pt is working on weight loss and increasing her activity levels. Total Occupational Therapy Minutes 20 Assessment Assessment Pt is doing very well, presents with no s/s of lymphedema and no concerns. Pt understands the importance of continued surveillance and also understands early s/s of lymphedema as well as infection and it's correlation to lymphedema risk. Pt will benefit from continued skilled OT intervention through [facility] lymphedema surveillance program with focus on continued pt education and early detection / treatment to reduce severity / side effects of lymphedema. Will plan to re-assess in 3 months. Patient Goals Patient Goals 1. Pt will demonstrate a general understanding of the lymphatic system, s/s of lymphedema, treatment of lymphedema, implications of untreated lymphedema, s/s of infection and the correlation of infection related to lymphedema. 3 months 2. Pt will be compliant with quarterly assessments for lymphedema surveillance in order to obtain early intervention with best outcomes if needed. 12 months Treatment Plan Treatment Plan Evaluation,Edema Control, Manual Therapy,Therapeutic Exercise,Therapeutic Activities,Self-Care/Home Management,Education Other Treatment Plan Re-assess 4 weeks post-op and then quarterly x 12 months or prn if needs arise. Occupational Therapy Billing Units Treatment Minutes Timed Treatment Minutes 20 Total Treatment Minutes 20 Billing Units Self Care/Home Management 1 Certification Statement Certification Statement I Certify That: Therapy Services Provided, Therapy Plan Established, Therapy Plan Reviewed Recertification Information Recertification Information Initial Certification Date 04/10/24 Recertification Start Date 10/06/24 Recertification Due Date 01/05/25 Reasons to Continue Skilled Therapy Pt is participating in a lymphedema surveillance program. She will be seen quarterly for 1 year post surgery / treatment along with self-surveillance. Pt will benefit from continued skilled OT intervention for re- assessment and early intervention to assure best outcomes. Rehabilitation Potential Good Click To Default 'Per treatment plan' Per treatment plan Continued Plan of Care and Interventions Per treatment plan Provider Signature Required Yes Provider Signature Shows Agreement With POC & Medical Necessity Physician NPI Number Write NPI# Here Physician Comment/Change Comment or Changes Physician Signature & Date Requested Please Sign/Date Here
--- NOTE | 2025-02-27 10:33 | OT.OPLE2 ---
OT Outpatient Lymphedema Eval* OT Outpatient Lymphedema Eval* Start: 04/09/24 18:35 Freq: Status: Active Protocol: Document 04/10/24 07:18 AMB (Rec: 04/10/24 17:55 AMB [id number]) E-signed By Avani Stout OTR/L, CLT, ALLIGATOR SHEAR OPERATOR OT Outpatient Evaluation Details Type Type Eval Complexity Low Insurance Information Insurance Information Insurance Medicare B Information Home Program Home Program Home Program Initiated OT OP Lymphedema Evaluation Current Condition/Medical Diagnosis Referring Provider Dr Moore Medical Diagnoses 189.0 Lymphedema Treatment Diagnosis I890.0 Lymphedema Medical History Medical History Cancer Treatment/Surgery Medical History PMH (copied from medical chart): Comments Displaced fracture of lateral malleolus of right fibula , subsequent encounter for closed fracture with routine healing (Acute) S82.61XD - Displaced fracture of lateral malleolus of right fibula, subsequent encounter for closed fracture with routine healing (ICD-10) Displaced fracture of lateral malleolus of right fibula , initial encounter for closed fracture (Acute) S82.61XA - Displaced fracture of lateral malleolus of right fibula, initial encounter for closed fracture ( ICD-10) Skin problem L98.9 - Disorder of the skin and subcutaneous tissue, unspecified (ICD-10) Elevated cholesterol E78.00 - Pure hypercholesterolemia, unspecified (ICD-10 ) Elevated blood pressure reading with diagnosis of hypertension I10 - Essential (primary) hypertension (ICD-10) Surgical History Surgical History None Medications Medications atorvastatin 20 mg PO DAILY fluticasone propionate 50 mcg/actuation sprays intranasal hydrochlorothiazide mg PO DAILY hydrochlorothiazide 25 mg PO DAILY lisinopril mg PO DAILY lisinopril 30 mg PO DAILY metoprolol succinate ER mg PO DAILY metoprolol succinate ER 200 mg PO DAILY simvastatin mg PO .Bedtime triamcinolone acetonide 0.025% applic topical Family History Family History of No Lymphedema Current Work Status Current Work Status Retired Current Work Status 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 It was discovered on her yearly mammogram. Pt states her surgery is tomorrow and she is a little nervous but has good spousal support. Pt's attends OT today, states he will help with all fitting room inspector and assist pt as needed following surgery. Pt states she has never really had any surgery before, other than a D&C following the of her first daughter. Living Situation Current Living Home With Spouse Or SO Situation Problem List Problem List Limited Knowledge of Lymphedema Treatment/Condition/ Precautions,Limited Knowledge of Skin Care & Infection Precautions,Significant Risk For Infection For Lymphedema Related Complications,Does Not Have a HEP Exercise History Does Patient Yes Exercise Regularly Exercise Comments Pt normally enjoys walking but she broke her ankle last May and has really never gotten back into it yet as her ankle is still sore and weak. Pain Pain No ROM/Strength ROM/Strength Pt demonstrates full AROM and strength throughout BUE. Comments Circumferential Measurements Upper Extremity Left Upper Extremity MCP (in cm) 18.2 Palm (in cm) 18.6 Smallest Wrist 16.0 Measurement (in cm) 10 cm Above Smallest 21.0 Wrist Measurement 20 cm Above Smallest 26.5 Wrist Measurement 30 cm Above Smallest 34.8 Wrist Measurement 40 cm Above Smallest 37.8 Wrist Measurement Total Girth in cm 172.9 UE Volume C 274.01 UE Volume D 450.87 UE Volume E 752.13 UE Volume F 1049.18 Upper Extremity 2,526.19 Volume Total in cm Right Upper Extremity MCP (in cm) 18.2 Palm (in cm) 18.6 Smallest Wrist 16.0 Measurement (in cm) 10 cm Above Smallest 19.8 Wrist Measurement 20 cm Above Smallest 27.0 Wrist Measurement 30 cm Above Smallest 35.2 Wrist Measurement 40 cm Above Smallest 38.5 Wrist Measurement Total Girth in cm 173.3 UE Volume C 255.93 UE Volume D 439.17 UE Volume E 774.14 UE Volume F 1081.32 Upper Extremity 2,550.56 Volume Total in cm Assessment Assessment Pt presents pre-operatively for initiation of lymphedema surveillance program. Following her 04/10/24 left sided mastectomy with SLN biopsy, pt is at risk for lymphedema in her LUE / upper quadrant due to LN removal. Pt may need radiation which would add to her risk. Pt will benefit from skilled OT intervention for pt education, monitoring / surveillance in order to provide early detection / intervention to assure best positive outcomes with fewer lymphedema related complications if the need arises. Pt demonstrates good interest and motivation to be an active participant in her care. Pt has good spousal support. Pt asked multiple pertinent questions and received satisfactory answers. Pt was given contact info and encouraged to reach out if more questions arise. Patient Goals Patient Goals 1. Pt will demonstrate a general understanding of the lymphatic system, s/s of lymphedema, treatment of lymphedema, implications of untreated lymphedema, s/s of infection and the correlation of infection related to lymphedema. 3 months 2. Pt will be compliant with quarterly assessments for lymphedema surveillance in order to obtain early intervention with best outcomes if needed. 12 months Treatment Plan Treatment Plan Evaluation,Edema Control,Manual Therapy,Therapeutic Exercise,Therapeutic Activities,Self-Care/Home Management,Education Other Treatment Plan Re-assess 4 weeks post-op and then quarterly x 12 months or prn if needs arise. Certification Certification Statement I Certify That: Therapy Services Provided,Therapy Plan Established, Therapy Plan Reviewed Certification Information Clinic ID # [id number] Initial 04/10/24 Certification Date Recertification Due 07/09/24 Date Provider Signature Yes Required Provider Signature POC & Medical Necessity Shows Agreement With Physician NPI Number Write NPI# Here Physician Comment/ Comment or Changes Change Physician Signature Please Sign/Date Here & Date Requested
== END 2025-06-27 23:59 | disposition home or self-care (01) ==
PROVIDERS: PCP Family Medicine; Visit Provider Surgery
DX: C50.911 Malignant neoplasm of unspecified site of right female breast (principal); Z17.0 Estrogen receptor positive status [ER+]; Z51.89 Encounter for other specified aftercare
CPT/HCPCS: 97110; 97140; 97165; 97535; X5282